=== PATIENT | male | born 1935 | race Hispanic/Latino ===

== ENCOUNTER 2020-10-13 12:00 | Emergency (ER) | payer MEDICARE ==
[2020-10-13 12:25] VITALS: BP 124/55
--- NOTE | 2020-10-13 13:06 | Emergency Department Report ---
ED General Adult HPI - General Chief complaint: Urogenital-Male Stated complaint: CATH BAG LEAKING Time Seen by Provider: 10/13/20 13:04 Source: patient Mode of arrival: Ambulatory Limitations: Physical Limitation - History of Present Illness Initial comments: Patient is an 85-year-old male with chronic indwelling Mac catheter presents for replacement Mac catheter bag after existing Mac catheter bag was damaged. Patient without medical complaint. - Related Data Allergies Allergy/AdvReac Type Severity Reaction Status Date / Time Penicillins AdvReac Unknown Unverified 05/11/16 10:20 ED Review of Systems ROS: Stated complaint: CATH BAG LEAKING Other details as noted in HPI Comment: All other systems reviewed and negative ED Past Medical Hx - Past Medical History Previous Medical History?: Yes Additional medical history: pt poor historian-unable to assess - Social History Smoking Status: Never Smoker ED Physical Exam - General Limitations: Physical Limitation General appearance: alert, in no apparent distress - Head Head exam: Present: atraumatic, normocephalic - Eye Eye exam: Present: normal appearance - ENT ENT exam: Present: mucous membranes moist - Neck Neck exam: Present: normal inspection - Respiratory Respiratory exam: Present: normal lung sounds bilaterally. Absent: respiratory distress - Cardiovascular Cardiovascular Exam: Present: regular rate, normal rhythm - GI/Abdominal GI/Abdominal exam: Present: soft, normal bowel sounds - Rectal Rectal exam: Present: deferred - Extremities Exam Extremities exam: Present: normal inspection - Back Exam Back exam: Present: normal inspection - Neurological Exam Neurological exam: Present: alert, oriented X3 - Psychiatric Psychiatric exam: Present: normal affect, normal mood - Skin Skin exam: Present: warm, dry, intact, normal color. Absent: rash ED Course Vital Signs 10/13/20 12:12 Temperature 97.8 F Pulse Rate 70 Respiratory 18 Rate Blood Pressure 124/55 O2 Sat by Pulse 98 Oximetry - Reevaluation(s) Reevaluation #1: 10/13/20 13:08 Mac catheter bag replaced by nurse. ED Medical Decision Making - Lab Data Vital Signs 10/13/20 12:12 Temperature 97.8 F Pulse Rate 70 Respiratory 18 Rate Blood Pressure 124/55 O2 Sat by Pulse 98 Oximetry Critical care attestation.: If time is entered above; I have spent that time in minutes in the direct care of this critically ill patient, excluding procedure time. ED Disposition Clinical Impression: Mac catheter problem Disposition: DC-01 TO HOME OR SELFCARE Is pt being admited?: No Condition: Stable Additional Instructions: Follow-up with primary care doctor in 1 to 2 days for reevaluation. Return to the emergency department for worsening symptoms.
== END 2020-10-13 13:59 | disposition home or self-care (01) ==
LOC: ED 12:00
DX: T83.098A Other mechanical complication of other urinary catheter, initial encounter (principal); Z88.0 Allergy status to penicillin; Y92.89 Other specified places as the place of occurrence of the external cause
CPT/HCPCS: 51702; 99281

== ENCOUNTER 2021-01-23 11:23 | Emergency (ER) | payer MEDICARE ==
[2021-01-23 11:34] VITALS: BP 146/68
--- NOTE | 2021-01-23 13:28 | Emergency Department Report ---
ED Male HPI - General Chief complaint: Medical Clearance Stated complaint: LEG BAG LEAKING Time Seen by Provider: 01/23/21 13:00 Source: patient, family Mode of arrival: Ambulatory Limitations: No Limitations - History of Present Illness Initial comments: This is a 85-year-old male in no physical or acute distress who presents to the ED complaining that his catheter bag is leaking and got damaged and would like a replacement. Patient has a history of catheter that was placed by his physician. Patient denies any testicular pain or pelvic pain. Patient denies any abdominal pain. - Related Data Allergies Allergy/AdvReac Type Severity Reaction Status Date / Time Penicillins AdvReac Unknown Unverified 05/11/16 10:20 ED Review of Systems ROS: Stated complaint: LEG BAG LEAKING Other details as noted in HPI Comment: All other systems reviewed and negative ED Past Medical Hx - Past Medical History Additional medical history: pt poor historian-unable to assess - Social History Smoking Status: Never Smoker ED Physical Exam - General Limitations: No Limitations General appearance: alert, in no apparent distress - Head Head exam: Present: atraumatic, normocephalic - Eye Eye exam: Present: normal appearance - ENT ENT exam: Present: mucous membranes moist - Neck Neck exam: Present: normal inspection - Respiratory Respiratory exam: Present: normal lung sounds bilaterally. Absent: respiratory distress - Cardiovascular Cardiovascular Exam: Present: regular rate, normal rhythm. Absent: systolic murmur, diastolic murmur, rubs, gallop - GI/Abdominal GI/Abdominal exam: Present: soft, normal bowel sounds - Rectal Rectal exam: Present: deferred - Extremities Exam Extremities exam: Present: normal inspection - Back Exam Back exam: Present: normal inspection - Neurological Exam Neurological exam: Present: alert, oriented X3 - Psychiatric Psychiatric exam: Present: normal affect, normal mood - Skin Skin exam: Present: warm, dry, intact, normal color. Absent: rash ED Course Vital Signs 01/23/21 11:31 Temperature 98.1 F Pulse Rate 63 Respiratory 18 Rate Blood Pressure 146/68 [Right] O2 Sat by Pulse 96 Oximetry ED Medical Decision Making - Medical Decision Making This 85-year-old male who presented with Mac catheter problem. Mac catheter with a bag was replaced by nurse. Mac catheter in place, working properly without any obstruction noted. Tried contacting family member via phone number in patient's profile. Phone number was called but had unknown member or affiliation person picked up the phone. Patient states he was brought here by someone that is in the same house symptoms but this person does not know anything about his medical conditions. Patient seems to be in no acute distress. Discussed follow-up with his primary care physician. Critical care attestation.: If time is entered above; I have spent that time in minutes in the direct care of this critically ill patient, excluding procedure time. ED Disposition Clinical Impression: Mac catheter problem, Mac catheter present Disposition: DC- TO HOME OR SELFCARE Condition: Stable Forms: Accompanied Note, Work/School Release Form(ED)
== END 2021-01-23 13:58 | disposition home or self-care (01) ==
LOC: ED 11:23
DX: T83.031A Leakage of indwelling urethral catheter, initial encounter (principal); Z88.0 Allergy status to penicillin; Y92.89 Other specified places as the place of occurrence of the external cause

== ENCOUNTER 2021-02-26 13:36 | Emergency (ER) | payer MEDICARE ==
--- NOTE | 2021-02-26 16:08 | Event Note ---
ED Screening Note ED Screening Note: Patient is an 85-year-old male presents emergency room with complaints of wanting his urinary catheter out He states he does not know who put it in or why it was placed The nurse spoke with the patient's son and apparently it was placed at [facility] 6 months ago but the son does not know why He has not had a change since then He is not currently seeing a urologist States it is still draining appropriately He has some abdominal discomfort This initial assessment/diagnostic orders/clinical plan/treatment(s) is/are subject to change based on patients health status, clinical progression and re- assessment by fellow clinical providers in the ED. Further treatment and workup at subsequent clinical providers discretion. Patient/guardian urged not to elope from the ED as their condition may be serious if not clinically assessed and managed. Initial orders include: labs, ua
[2021-02-26 16:52] LABS: Basophils % (Auto) 0.6 % (0.0-1.8); Eosinophils # (Auto) 0.2 K/mm3 (0.0-0.4); Eosinophils % (Auto) 3.1 % (0.0-4.3); Hematocrit 36.9 % (35.5-45.6); Mean Corpuscular HGB Conc 33 % (32-34); Mean Corpuscular Volume 89 fl (84-94); Monocytes # (Auto) 0.5 K/mm3 (0.0-0.8); Platelet Count 161 K/mm3 (140-440); Red Blood Count 4.14 M/mm3 (3.65-5.03)
[2021-02-26 17:11] LABS: Calcium 8.4 mg/dL (8.4-10.2)
--- NOTE | 2021-02-26 20:51 | Emergency Department Report ---
ED Male HPI - General Chief complaint: Abdominal Pain Stated complaint: GOMES BAG/ KNOTS IN STOMACH Time Seen by Provider: 02/26/21 16:06 Source: patient, family Mode of arrival: Ambulatory Limitations: Other - History of Present Illness Initial comments: Chief complaint "I want to know if you can take this out." HPI: This is an 85-year-old male with Gomes catheter in place. He wants to know if the Gomes catheter can be taken out or the leg bag replaced. He denies any discomfort at this time. He does not have a urologist. He does not know why the catheter is in place. He denies any other symptoms. Complaint: other (Gomes catheter in place for 6 months) Severity: mild Quality: other (Discomfort) Consistency: constant Improves with: none Worsens with: none indwelling catheter denies other symptoms - Related Data Allergies Allergy/AdvReac Type Severity Reaction Status Date / Time Penicillins AdvReac Unknown Unverified 05/11/16 10:20 ED Review of Systems ROS: Stated complaint: GOMES BAG/ KNOTS IN STOMACH Other details as noted in HPI Comment: All other systems reviewed and negative Constitutional: denies: fever, malaise Respiratory: denies: cough, shortness of breath Gastrointestinal: denies: abdominal pain, nausea, vomiting ED Past Medical Hx - Past Medical History Previous Medical History?: Yes Additional medical history: Urinary retention, patient gives limited history - Surgical History Additional Surgical History: Patient gives limited history - Social History Smoking Status: Never Smoker ED Physical Exam - General Limitations: Other General appearance: alert, in no apparent distress, other (Hard of hearing but able to communicate appears elderly frail but no acute distress) - Head Head exam: Present: atraumatic, normocephalic - Eye Eye exam: Present: normal appearance - ENT ENT exam: Present: mucous membranes moist - Neck Neck exam: Present: normal inspection, full ROM - Respiratory Respiratory exam: Present: normal lung sounds bilaterally. Absent: respiratory distress, wheezes, rales, rhonchi - Cardiovascular Cardiovascular Exam: Present: regular rate, normal rhythm, normal heart sounds. Absent: systolic murmur, diastolic murmur, rubs, gallop - GI/Abdominal GI/Abdominal exam: Present: soft, normal bowel sounds. Absent: distended, tenderness, guarding, rebound - Rectal Rectal exam: Present: deferred - Extremities Exam Extremities exam: Present: other (Leg bag in place filled with urine) - Back Exam Back exam: Present: normal inspection - Neurological Exam Neurological exam: Present: alert, oriented X3 - Psychiatric Psychiatric exam: Present: normal affect, normal mood - Skin Skin exam: Present: warm, dry, intact, other (Multiple sun spots, multiple papules on face and extremities) ED Medical Decision Making - Lab Data Result diagrams: 02/26/21 16:18 02/26/21 16:18 - Medical Decision Making Chronic indwelling Gomes catheter presumably due to BPH.: CBC chemistry within normal limits. Patient referred to urologist for further evaluation. Critical care attestation.: If time is entered above; I have spent that time in minutes in the direct care of this critically ill patient, excluding procedure time. ED Disposition Clinical Impression: Gomes catheter in place Disposition: DC-01 TO HOME OR SELFCARE Is pt being admited?: No Does the pt Need Aspirin: No Condition: Stable Instructions: Indwelling Urinary Catheter Insertion, Care After Additional Instructions: Please see urologist for further recommendations. Referrals: ZAIN COLLINS MD [Staff Physician] - 3-5 Days
[2021-02-26 23:51] VITALS: BP 187/79
== END 2021-02-26 21:50 | disposition home or self-care (01) ==
LOC: ED 13:36
DX: R10.9 Unspecified abdominal pain (principal); Z97.8 Presence of other specified devices; Z88.0 Allergy status to penicillin
CPT/HCPCS: 36415; 80053; 85025; 99283

== ENCOUNTER 2021-04-01 12:41 | Emergency (ER) | payer MEDICARE ==
[2021-04-01 13:08] VITALS: BP 117/61
== END 2021-04-01 18:16 | disposition home or self-care (01) ==
LOC: ED 12:41
DX: T83.038A Leakage of other urinary catheter, initial encounter (principal); Z88.0 Allergy status to penicillin; Z79.899 Other long term (current) drug therapy; Y84.6 Urinary catheterization as the cause of abnormal reaction of the patient, or of later complication, without mention of misadventure at the time of the procedure; Y92.89 Other specified places as the place of occurrence of the external cause
CPT/HCPCS: 99281

== ENCOUNTER 2021-04-28 19:04 | Inpatient (IN) | payer MEDICARE ==
--- NOTE | 2021-04-28 20:32 | Event Note ---
Date: 04/28/21 The patient was evaluated in the emergency department for symptoms described in the history of present illness. He/she was evaluated in the context of the global COVID-19 pandemic, which necessitated consideration that the patient might be at risk for infection with the virus that causes COVID-19. Institutional protocols and algorithms that pertain to the evaluation of patients at risk for COVID-19 are in a state of rapid change based on information released by regulatory bodies including the CDC and federal and state organizations. These policies and algorithms were followed during the patient's care in the emergency department. Please note that these policies, procedures and recommendations changed on a rapid basis. EMS documentation not available at time of chart dictation Medical screening examination: Verbal report received from emergency medical services. 86-year-old gentleman, brought to the hospital by EMS with a complaint from EMS of "he probably has sepsis." EMS states that they responded to a call with a complaint of weakness and altered mental status. Last known well time is "a few days ago", as per EMS. EMS reports to myself stable vital signs in the field. The patient is awake, moving 4 extremities spontaneously, and is confused. Altered mental status work-up ordered. EMS reports that this patient has "skin ulcers", so he will need a detailed head to toe skin exam, and likely admission for alteration in mental status/acute encephalopathy. Vital Signs 04/29/21 00:40 Temperature 98.2 F Pulse Rate 81 Respiratory 14 Rate Blood Pressure 169/93 [Left] O2 Sat by Pulse 96 Oximetry Lab Results 04/28/21 04/28/21 04/28/21 Range/Units 21:19 21:19 21:19 WBC 4.6 (4.5-11.0) K/mm3 RBC 5.00 (3.65-5.03) M/mm3 Hgb 14.1 (11.8-15.2) gm/dl Hct 42.2 (35.5-45.6) % MCV 84 (84-94) fl MCH 28 (28-32) pg MCHC 33 (32-34) % RDW 15.4 H (13.2-15.2) % Plt Count 126 L (140-440) K/mm3 Lymph % (Auto) 16.6 (13.4-35.0) % Johnston % (Auto) 5.2 (0.0-7.3) % Eos % (Auto) 0.1 (0.0-4.3) % Baso % (Auto) 0.3 (0.0-1.8) % Lymph # (Auto) 0.8 L (1.2-5.4) K/mm3 Johnston # (Auto) 0.2 (0.0-0.8) K/mm3 Eos # (Auto) 0.0 (0.0-0.4) K/mm3 Baso # (Auto) 0.0 (0.0-0.1) K/mm3 Seg Neutrophils % 77.8 H (40.0-70.0) % Seg Neutrophils # 3.6 (1.8-7.7) K/mm3 PT 13.1 (12.2-14.9) Sec. INR 0.93 (0.87-1.13) APTT 32.0 (24.2-36.6) Sec. Sodium 133 L (137-145) mmol/L Potassium 4.3 (3.6-5.0) mmol/L Chloride 97.3 L (98-107) mmol/L Carbon Dioxide 21 L (22-30) mmol/L Anion Gap 19 mmol/L BUN 34 H (9-20) mg/dL Creatinine 1.4 H (0.8-1.3) mg/dL Estimated GFR 48 ml/min BUN/Creatinine Ratio 24 % Glucose 108 H (75-100) mg/dL Lactic Acid (0.7-2.0) mmol/L Calcium 8.8 (8.4-10.2) mg/dL Total Bilirubin 0.40 (0.1-1.2) mg/dL AST 36 (5-40) units/L ALT 16 (7-56) units/L Alkaline Phosphatase 53 (35-129) units/L Ammonia (25-60) umol/L Total Creatine Kinase 215 H (55-170) units/L Troponin T 0.014 (0.00-0.029) ng/mL Total Protein 8.0 (6.3-8.2) g/dL Albumin 4.2 (3.9-5) g/dL Albumin/Globulin Ratio 1.1 % TSH (0.270-4.200) mlU/mL Salicylates (2.8-20.0) mg/dL Acetaminophen (10.0-30.0) ug/mL Plasma/Serum Alcohol (0-0.07) % Blood Type Antibody Screen 04/28/21 04/28/21 04/28/21 Range/Units 21:19 21:19 21:19 WBC (4.5-11.0) K/mm3 RBC (3.65-5.03) M/mm3 Hgb (11.8-15.2) gm/dl Hct (35.5-45.6) % MCV (84-94) fl MCH (28-32) pg MCHC (32-34) % RDW (13.2-15.2) % Plt Count (140-440) K/mm3 Lymph % (Auto) (13.4-35.0) % Johnston % (Auto) (0.0-7.3) % Eos % (Auto) (0.0-4.3) % Baso % (Auto) (0.0-1.8) % Lymph # (Auto) (1.2-5.4) K/mm3 Johnston # (Auto) (0.0-0.8) K/mm3 Eos # (Auto) (0.0-0.4) K/mm3 Baso # (Auto) (0.0-0.1) K/mm3 Seg Neutrophils % (40.0-70.0) % Seg Neutrophils # (1.8-7.7) K/mm3 PT (12.2-14.9) Sec. INR (0.87-1.13) APTT (24.2-36.6) Sec. Sodium (137-145) mmol/L Potassium (3.6-5.0) mmol/L Chloride (98-107) mmol/L Carbon Dioxide (22-30) mmol/L Anion Gap mmol/L BUN (9-20) mg/dL Creatinine (0.8-1.3) mg/dL Estimated GFR ml/min BUN/Creatinine Ratio % Glucose (75-100) mg/dL Lactic Acid 1.40 (0.7-2.0) mmol/L Calcium (8.4-10.2) mg/dL Total Bilirubin (0.1-1.2) mg/dL AST (5-40) units/L ALT (7-56) units/L Alkaline Phosphatase (35-129) units/L Ammonia 21.0 L (25-60) umol/L Total Creatine Kinase (55-170) units/L Troponin T (0.00-0.029) ng/mL Total Protein (6.3-8.2) g/dL Albumin (3.9-5) g/dL Albumin/Globulin Ratio % TSH 12.780 H (0.270-4.200) mlU/mL Salicylates (2.8-20.0) mg/dL Acetaminophen (10.0-30.0) ug/mL Plasma/Serum Alcohol (0-0.07) % Blood Type Antibody Screen 04/28/21 04/28/21 04/28/21 Range/Units 21:19 21:19 21:19 WBC (4.5-11.0) K/mm3 RBC (3.65-5.03) M/mm3 Hgb (11.8-15.2) gm/dl Hct (35.5-45.6) % MCV (84-94) fl MCH (28-32) pg MCHC (32-34) % RDW (13.2-15.2) % Plt Count (140-440) K/mm3 Lymph % (Auto) (13.4-35.0) % Johnston % (Auto) (0.0-7.3) % Eos % (Auto) (0.0-4.3) % Baso % (Auto) (0.0-1.8) % Lymph # (Auto) (1.2-5.4) K/mm3 Johnston # (Auto) (0.0-0.8) K/mm3 Eos # (Auto) (0.0-0.4) K/mm3 Baso # (Auto) (0.0-0.1) K/mm3 Seg Neutrophils % (40.0-70.0) % Seg Neutrophils # (1.8-7.7) K/mm3 PT (12.2-14.9) Sec. INR (0.87-1.13) APTT (24.2-36.6) Sec. Sodium (137-145) mmol/L Potassium (3.6-5.0) mmol/L Chloride (98-107) mmol/L Carbon Dioxide (22-30) mmol/L Anion Gap mmol/L BUN (9-20) mg/dL Creatinine (0.8-1.3) mg/dL Estimated GFR ml/min BUN/Creatinine Ratio % Glucose (75-100) mg/dL Lactic Acid (0.7-2.0) mmol/L Calcium (8.4-10.2) mg/dL Total Bilirubin (0.1-1.2) mg/dL AST (5-40) units/L ALT (7-56) units/L Alkaline Phosphatase (35-129) units/L Ammonia (25-60) umol/L Total Creatine Kinase (55-170) units/L Troponin T (0.00-0.029) ng/mL Total Protein (6.3-8.2) g/dL Albumin (3.9-5) g/dL Albumin/Globulin Ratio % TSH (0.270-4.200) mlU/mL Salicylates < 0.3 L (2.8-20.0) mg/dL Acetaminophen 5.0 L (10.0-30.0) ug/mL Plasma/Serum Alcohol < 0.01 (0-0.07) % Blood Type Antibody Screen 04/28/21 Range/Units 21:19 WBC (4.5-11.0) K/mm3 RBC (3.65-5.03) M/mm3 Hgb (11.8-15.2) gm/dl Hct (35.5-45.6) % MCV (84-94) fl MCH (28-32) pg MCHC (32-34) % RDW (13.2-15.2) % Plt Count (140-440) K/mm3 Lymph % (Auto) (13.4-35.0) % Johnston % (Auto) (0.0-7.3) % Eos % (Auto) (0.0-4.3) % Baso % (Auto) (0.0-1.8) % Lymph # (Auto) (1.2-5.4) K/mm3 Johnston # (Auto) (0.0-0.8) K/mm3 Eos # (Auto) (0.0-0.4) K/mm3 Baso # (Auto) (0.0-0.1) K/mm3 Seg Neutrophils % (40.0-70.0) % Seg Neutrophils # (1.8-7.7) K/mm3 PT (12.2-14.9) Sec. INR (0.87-1.13) APTT (24.2-36.6) Sec. Sodium (137-145) mmol/L Potassium (3.6-5.0) mmol/L Chloride (98-107) mmol/L Carbon Dioxide (22-30) mmol/L Anion Gap mmol/L BUN (9-20) mg/dL Creatinine (0.8-1.3) mg/dL Estimated GFR ml/min BUN/Creatinine Ratio % Glucose (75-100) mg/dL Lactic Acid (0.7-2.0) mmol/L Calcium (8.4-10.2) mg/dL Total Bilirubin (0.1-1.2) mg/dL AST (5-40) units/L ALT (7-56) units/L Alkaline Phosphatase (35-129) units/L Ammonia (25-60) umol/L Total Creatine Kinase (55-170) units/L Troponin T (0.00-0.029) ng/mL Total Protein (6.3-8.2) g/dL Albumin (3.9-5) g/dL Albumin/Globulin Ratio % TSH (0.270-4.200) mlU/mL Salicylates (2.8-20.0) mg/dL Acetaminophen (10.0-30.0) ug/mL Plasma/Serum Alcohol (0-0.07) % Blood Type A POSITIVE Antibody Screen Negative CT head/brain wo con INDICATION / CLINICAL INFORMATION: 86 years Male; Altered Mental Status. TECHNIQUE: Routine CT head without contrast. All CT scans at this location are performed using CT dose reduction for ALARA by means of automated exposure control. COMPARISON: None. FINDINGS: BRAIN / INTRACRANIAL CONTENTS: The motion degrades the image quality. 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 There is mild cerebral atrophy with associated prominence of the ventricular system. There appears be some thickening of the left frontal and right superficial temporal soft tissues. There is no reported history of trauma. There is no clear CT evidence of acute intracranial hemorrhage or significant mass effect. ORBITS: No significant abnormality of visualized orbits. SINUSES / MASTOIDS: No signif icant abnormality in the visualized paranasal sinuses or mastoid air cells. CRANIOCERVICAL JUNCTION: No significant abnormality. ADDITIONAL FINDINGS: None. IMPRESSION: 1. The motion degrades image quality. 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 Signer Name: Willie Lazar MD Signed: 04/28/2021 8:45 PM Workstation Name: [id number] CHEST 1 VIEW INDICATION / CLINICAL INFORMATION: Altered Mental Status. COMPARISON: None available. FINDINGS: SUPPORT DEVICES: None. HEART / MEDIASTINUM: No significant abnormality. LUNGS / PLEURA: No significant pulmonary or pleural abnormality. No pneumothorax. ADDITIONAL FINDINGS: No significant additional findings. IMPRESSION: 1. No acute findings. Signer Name: Alma Cowan MD Signed: 04/28/2021 8:29 PM Workstation Name: [id number]
--- NOTE | 2021-04-28 21:33 | XRay Report ---
CHEST 1 VIEW INDICATION / CLINICAL INFORMATION: Altered Mental Status. COMPARISON: None available. FINDINGS: SUPPORT DEVICES: None. HEART / MEDIASTINUM: No significant abnormality. LUNGS / PLEURA: No significant pulmonary or pleural abnormality. No pneumothorax. ADDITIONAL FINDINGS: No significant additional findings. IMPRESSION: 1. No acute findings. Signer Name: Alma Cowan MD Signed: 04/28/2021 9:29 PM Workstation Name: [id number]
[2021-04-28 21:49] LABS: Basophils % (Auto) 0.3 % (0.0-1.8); Eosinophils % (Auto) 0.1 % (0.0-4.3); Hematocrit 42.2 % (35.5-45.6); Hemoglobin 14.1 gm/dl (11.8-15.2); Lymphocytes # (Auto) 0.8 K/mm3 (1.2-5.4); Lymphocytes % (Auto) 16.6 % (13.4-35.0); Mean Corpuscular HGB Conc 33 % (32-34); Mean Corpuscular Volume 84 fl (84-94); Monocytes # (Auto) 0.2 K/mm3 (0.0-0.8); Monocytes % (Auto) 5.2 % (0.0-7.3); Platelet Count 126 K/mm3 (140-440); Red Cell Distribution Width 15.4 % (13.2-15.2)
--- NOTE | 2021-04-28 21:49 | Cat Scan Report ---
CT head/brain wo con INDICATION / CLINICAL INFORMATION: 86 years Male; Altered Mental Status. TECHNIQUE: Routine CT head without contrast. All CT scans at this location are performed using CT dos e reduction for ALARA by means of automated exposure control. COMPARISON: None. FINDINGS: BRAIN / INTRACRANIAL CONTENTS: The motion degrades the image quality. However, there appears be moder ate cerebral white matter disease most consistent with microvascular angiopathy which appears of prog ressed from the previous exam. There is mild cerebral atrophy with associated prominence of the ventr icular system. There appears be some thickening of the left frontal and right superficial temporal soft tissues. The re is no reported history of trauma. There is no clear CT evidence of acute intracranial hemorrhage o r significant mass effect. ORBITS: No significant abnormality of visualized orbits. SINUSES / MASTOIDS: No significant abnormality in the visualized paranasal sinuses or mastoid air barry ls. CRANIOCERVICAL JUNCTION: No significant abnormality. ADDITIONAL FINDINGS: None. IMPRESSION: 1. The motion degrades image quality. 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 Signer Name: Willie Lazar MD Signed: 04/28/2021 9:45 PM Workstation Name: [id number]
[2021-04-28 22:03] LABS: INR 0.93 (0.87-1.13)
[2021-04-28 22:08] LABS: Albumin 4.2 g/dL (3.9-5); Calcium 8.8 mg/dL (8.4-10.2)
[2021-04-29] MEDS ORDERED: SODIUM CHLORIDE 0.9% 1000 ML 1,000 ML IV ONE (02:51)
[2021-04-29 04:24] LABS: Bacteria,Urine 2+ /HPF (Negative); Bilirubin,Urine NEG (Negative); Blood,Urine LG (Negative); Color,Urine Amber (Yellow); Mucus,Urine FEW /HPF; Urobilinogen,Urine < 2.0 mg/dL (<2.0)
[2021-04-29 04:26] LABS: Protein,Urine >500 mg/dL (Negative); RBC,Urine > 182.0 /HPF (0.0-6.0)
--- NOTE | 2021-04-29 05:22 | Emergency Department Report ---
ED General Adult HPI - General Chief complaint: Neuro Symptoms/Deficit Stated complaint: AMS Time Seen by Provider: 04/29/21 01:04 Source: EMS Mode of arrival: Stretcher Limitations: Altered Mental Status - History of Present Illness Initial comments: Patient is a 86-year-old male who is presenting with some altered mental status. Patient has a neighbor who checks him from time to time. Patient had been seen in a day or 2. Found mumbling and not as coherent as he normally is. Patient has indwelling Mac catheter which appears to have been in for quite some time. Patient is denying any pain fevers chills cough cold congestion however the patient is a poor historian is unable to give any additional history - Related Data Allergies Allergy/AdvReac Type Severity Reaction Status Date / Time Penicillins AdvReac Unknown Unverified 05/11/16 10:20 ED Review of Systems ROS: Stated complaint: AMS Other details as noted in HPI Comment: All other systems reviewed and negative ED Past Medical Hx - Past Medical History Previous Medical History?: Yes Additional medical history: Urinary retention, skin cancer, patient gives limited history - Surgical History Past Surgical History?: No Additional Surgical History: Patient gives limited history - Social History Smoking Status: Never Smoker ED Physical Exam - General Limitations: Altered Mental Status General appearance: alert, in no apparent distress - Head Head exam: Present: atraumatic, normocephalic - Eye Eye exam: Present: normal appearance, PERRL, EOMI - ENT ENT exam: Present: mucous membranes moist - Neck Neck exam: Present: normal inspection - Respiratory Respiratory exam: Present: normal lung sounds bilaterally. Absent: respiratory distress, wheezes, rales, rhonchi - Cardiovascular Cardiovascular Exam: Present: regular rate, normal rhythm, normal heart sounds. Absent: systolic murmur, diastolic murmur, rubs, gallop - GI/Abdominal GI/Abdominal exam: Present: soft, normal bowel sounds. Absent: distended, tenderness, guarding, rebound - Rectal Rectal exam: Present: deferred - Extremities Exam Extremities exam: Present: normal inspection - Back Exam Back exam: Present: normal inspection - Neurological Exam Neurological exam: Present: alert, altered - Psychiatric Psychiatric exam: Present: normal affect, normal mood - Skin Skin exam: Present: warm, dry, intact, normal color. Absent: rash ED Course Vital Signs 04/29/21 00:40 Temperature 98.2 F Pulse Rate 81 Respiratory 14 Rate Blood Pressure 169/93 [Left] O2 Sat by Pulse 96 Oximetry ED Medical Decision Making - Lab Data Result diagrams: 04/28/21 21:19 04/28/21 21:19 Lab Results 04/28/21 04/28/21 04/28/21 Range/Units 21:19 21:19 21:19 WBC 4.6 (4.5-11.0) K/mm3 RBC 5.00 (3.65-5.03) M/mm3 Hgb 14.1 (11.8-15.2) gm/dl Hct 42.2 (35.5-45.6) % MCV 84 (84-94) fl MCH 28 (28-32) pg MCHC 33 (32-34) % RDW 15.4 H (13.2-15.2) % Plt Count 126 L (140-440) K/mm3 Lymph % (Auto) 16.6 (13.4-35.0) % [place] % (Auto) 5.2 (0.0-7.3) % Eos % (Auto) 0.1 (0.0-4.3) % Baso % (Auto) 0.3 (0.0-1.8) % Lymph # (Auto) 0.8 L (1.2-5.4) K/mm3 [place] # (Auto) 0.2 (0.0-0.8) K/mm3 Eos # (Auto) 0.0 (0.0-0.4) K/mm3 Baso # (Auto) 0.0 (0.0-0.1) K/mm3 Seg Neutrophils % 77.8 H (40.0-70.0) % Seg Neutrophils # 3.6 (1.8-7.7) K/mm3 PT 13.1 (12.2-14.9) Sec. INR 0.93 (0.87-1.13) APTT 32.0 (24.2-36.6) Sec. Sodium 133 L (137-145) mmol/L Potassium 4.3 (3.6-5.0) mmol/L Chloride 97.3 L (98-107) mmol/L Carbon Dioxide 21 L (22-30) mmol/L Anion Gap 19 mmol/L BUN 34 H (9-20) mg/dL Creatinine 1.4 H (0.8-1.3) mg/dL Estimated GFR 48 ml/min BUN/Creatinine Ratio 24 % Glucose 108 H (75-100) mg/dL Lactic Acid (0.7-2.0) mmol/L Calcium 8.8 (8.4-10.2) mg/dL Total Bilirubin 0.40 (0.1-1.2) mg/dL AST 36 (5-40) units/L ALT 16 (7-56) units/L Alkaline Phosphatase 53 (35-129) units/L Ammonia (25-60) umol/L Total Creatine Kinase 215 H (55-170) units/L Troponin T 0.014 (0.00-0.029) ng/mL Total Protein 8.0 (6.3-8.2) g/dL Albumin 4.2 (3.9-5) g/dL Albumin/Globulin Ratio 1.1 % TSH (0.270-4.200) mlU/mL Urine Color (Yellow) Urine Turbidity (Clear) Urine pH (5.0-7.0) Ur Specific [place] (1.003-1.030) Urine Protein (Negative) mg/dL Urine Glucose (UA) (Negative) mg/dL Urine Ketones (Negative) mg/dL Urine Blood (Negative) Urine Nitrite (Negative) Urine Bilirubin (Negative) Urine Urobilinogen (<2.0) mg/dL Ur Leukocyte Esterase (Negative) Urine WBC (Auto) (0.0-6.0) /HPF Urine RBC (Auto) (0.0-6.0) /HPF U Epithel Cells (Auto) (0-13.0) /HPF Urine Bacteria (Auto) (Negative) /HPF Urine WBC Clumps /HPF Urine Mucus /HPF Salicylates (2.8-20.0) mg/dL Acetaminophen (10.0-30.0) ug/mL Plasma/Serum Alcohol (0-0.07) % Blood Type Antibody Screen 04/28/21 04/28/21 04/28/21 Range/Units 21:19 21:19 21:19 WBC (4.5-11.0) K/mm3 RBC (3.65-5.03) M/mm3 Hgb (11.8-15.2) gm/dl Hct (35.5-45.6) % MCV (84-94) fl MCH (28-32) pg MCHC (32-34) % RDW (13.2-15.2) % Plt Count (140-440) K/mm3 Lymph % (Auto) (13.4-35.0) % [place] % (Auto) (0.0-7.3) % Eos % (Auto) (0.0-4.3) % Baso % (Auto) (0.0-1.8) % Lymph # (Auto) (1.2-5.4) K/mm3 [place] # (Auto) (0.0-0.8) K/mm3 Eos # (Auto) (0.0-0.4) K/mm3 Baso # (Auto) (0.0-0.1) K/mm3 Seg Neutrophils % (40.0-70.0) % Seg Neutrophils # (1.8-7.7) K/mm3 PT (12.2-14.9) Sec. INR (0.87-1.13) APTT (24.2-36.6) Sec. Sodium (137-145) mmol/L Potassium (3.6-5.0) mmol/L Chloride (98-107) mmol/L Carbon Dioxide (22-30) mmol/L Anion Gap mmol/L BUN (9-20) mg/dL Creatinine (0.8-1.3) mg/dL Estimated GFR ml/min BUN/Creatinine Ratio % Glucose (75-100) mg/dL Lactic Acid 1.40 (0.7-2.0) mmol/L Calcium (8.4-10.2) mg/dL Total Bilirubin (0.1-1.2) mg/dL AST (5-40) units/L ALT (7-56) units/L Alkaline Phosphatase (35-129) units/L Ammonia 21.0 L (25-60) umol/L Total Creatine Kinase (55-170) units/L Troponin T (0.00-0.029) ng/mL Total Protein (6.3-8.2) g/dL Albumin (3.9-5) g/dL Albumin/Globulin Ratio % TSH 12.780 H (0.270-4.200) mlU/mL Urine Color (Yellow) Urine Turbidity (Clear) Urine pH (5.0-7.0) Ur Specific [place] (1.003-1.030) Urine Protein (Negative) mg/dL Urine Glucose (UA) (Negative) mg/dL Urine Ketones (Negative) mg/dL Urine Blood (Negative) Urine Nitrite (Negative) Urine Bilirubin (Negative) Urine Urobilinogen (<2.0) mg/dL Ur Leukocyte Esterase (Negative) Urine WBC (Auto) (0.0-6.0) /HPF Urine RBC (Auto) (0.0-6.0) /HPF U Epithel Cells (Auto) (0-13.0) /HPF Urine Bacteria (Auto) (Negative) /HPF Urine WBC Clumps /HPF Urine Mucus /HPF Salicylates (2.8-20.0) mg/dL Acetaminophen (10.0-30.0) ug/mL Plasma/Serum Alcohol (0-0.07) % Blood Type Antibody Screen 04/28/21 04/28/21 04/28/21 Range/Units 21:19 21:19 21:19 WBC (4.5-11.0) K/mm3 RBC (3.65-5.03) M/mm3 Hgb (11.8-15.2) gm/dl Hct (35.5-45.6) % MCV (84-94) fl MCH (28-32) pg MCHC (32-34) % RDW (13.2-15.2) % Plt Count (140-440) K/mm3 Lymph % (Auto) (13.4-35.0) % [place] % (Auto) (0.0-7.3) % Eos % (Auto) (0.0-4.3) % Baso % (Auto) (0.0-1.8) % Lymph # (Auto) (1.2-5.4) K/mm3 [place] # (Auto) (0.0-0.8) K/mm3 Eos # (Auto) (0.0-0.4) K/mm3 Baso # (Auto) (0.0-0.1) K/mm3 Seg Neutrophils % (40.0-70.0) % Seg Neutrophils # (1.8-7.7) K/mm3 PT (12.2-14.9) Sec. INR (0.87-1.13) APTT (24.2-36.6) Sec. Sodium (137-145) mmol/L Potassium (3.6-5.0) mmol/L Chloride (98-107) mmol/L Carbon Dioxide (22-30) mmol/L Anion Gap mmol/L BUN (9-20) mg/dL Creatinine (0.8-1.3) mg/dL Estimated GFR ml/min BUN/Creatinine Ratio % Glucose (75-100) mg/dL Lactic Acid (0.7-2.0) mmol/L Calcium (8.4-10.2) mg/dL Total Bilirubin (0.1-1.2) mg/dL AST (5-40) units/L ALT (7-56) units/L Alkaline Phosphatase (35-129) units/L Ammonia (25-60) umol/L Total Creatine Kinase (55-170) units/L Troponin T (0.00-0.029) ng/mL Total Protein (6.3-8.2) g/dL Albumin (3.9-5) g/dL Albumin/Globulin Ratio % TSH (0.270-4.200) mlU/mL Urine Color (Yellow) Urine Turbidity (Clear) Urine pH (5.0-7.0) Ur Specific [place] (1.003-1.030) Urine Protein (Negative) mg/dL Urine Glucose (UA) (Negative) mg/dL Urine Ketones (Negative) mg/dL Urine Blood (Negative) Urine Nitrite (Negative) Urine Bilirubin (Negative) Urine Urobilinogen (<2.0) mg/dL Ur Leukocyte Esterase (Negative) Urine WBC (Auto) (0.0-6.0) /HPF Urine RBC (Auto) (0.0-6.0) /HPF U Epithel Cells (Auto) (0-13.0) /HPF Urine Bacteria (Auto) (Negative) /HPF Urine WBC Clumps /HPF Urine Mucus /HPF Salicylates < 0.3 L (2.8-20.0) mg/dL Acetaminophen 5.0 L (10.0-30.0) ug/mL Plasma/Serum Alcohol < 0.01 (0-0.07) % Blood Type Antibody Screen 04/28/21 04/29/21 Range/Units 21:19 03:47 WBC (4.5-11.0) K/mm3 RBC (3.65-5.03) M/mm3 Hgb (11.8-15.2) gm/dl Hct (35.5-45.6) % MCV (84-94) fl MCH (28-32) pg MCHC (32-34) % RDW (13.2-15.2) % Plt Count (140-440) K/mm3 Lymph % (Auto) (13.4-35.0) % [place] % (Auto) (0.0-7.3) % Eos % (Auto) (0.0-4.3) % Baso % (Auto) (0.0-1.8) % Lymph # (Auto) (1.2-5.4) K/mm3 [place] # (Auto) (0.0-0.8) K/mm3 Eos # (Auto) (0.0-0.4) K/mm3 Baso # (Auto) (0.0-0.1) K/mm3 Seg Neutrophils % (40.0-70.0) % Seg Neutrophils # (1.8-7.7) K/mm3 PT (12.2-14.9) Sec. INR (0.87-1.13) APTT (24.2-36.6) Sec. Sodium (137-145) mmol/L Potassium (3.6-5.0) mmol/L Chloride (98-107) mmol/L Carbon Dioxide (22-30) mmol/L Anion Gap mmol/L BUN (9-20) mg/dL Creatinine (0.8-1.3) mg/dL Estimated GFR ml/min BUN/Creatinine Ratio % Glucose (75-100) mg/dL Lactic Acid (0.7-2.0) mmol/L Calcium (8.4-10.2) mg/dL Total Bilirubin (0.1-1.2) mg/dL AST (5-40) units/L ALT (7-56) units/L Alkaline Phosphatase (35-129) units/L Ammonia (25-60) umol/L Total Creatine Kinase (55-170) units/L Troponin T (0.00-0.029) ng/mL Total Protein (6.3-8.2) g/dL Albumin (3.9-5) g/dL Albumin/Globulin Ratio % TSH (0.270-4.200) mlU/mL Urine Color [place] (Yellow) Urine Turbidity Cloudy (Clear) Urine pH 6.0 (5.0-7.0) Ur Specific [place] 1.015 (1.003-1.030) Urine Protein >500 (Negative) mg/dL Urine Glucose (UA) Neg (Negative) mg/dL Urine Ketones Neg (Negative) mg/dL Urine Blood Lg (Negative) Urine Nitrite Neg (Negative) Urine Bilirubin Neg (Negative) Urine Urobilinogen < 2.0 (<2.0) mg/dL Ur Leukocyte Esterase Lg (Negative) Urine WBC (Auto) 176.0 H (0.0-6.0) /HPF Urine RBC (Auto) > 182.0 (0.0-6.0) /HPF U Epithel Cells (Auto) < 1.0 (0-13.0) /HPF Urine Bacteria (Auto) 2+ (Negative) /HPF Urine WBC Clumps 2+ /HPF Urine Mucus Few /HPF Salicylates (2.8-20.0) mg/dL Acetaminophen (10.0-30.0) ug/mL Plasma/Serum Alcohol (0-0.07) % Blood Type A POSITIVE Antibody Screen Negative - Radiology Data CT head/brain wo con INDICATION / CLINICAL INFORMATION: 86 years Male; Altered Mental Status. TECHNIQUE: Routine CT head without contrast. All CT scans at this location are performed using CT dose reduction for ALARA by means of automated exposure control. COMPARISON: None. FINDINGS: BRAIN / INTRACRANIAL CONTENTS: The motion degrades the image quality. 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 There is mild cerebral atrophy with associated prominence of the ventricular system. There appears be some thickening of the left frontal and right superficial temporal soft tissues. There is no reported history of trauma. There is no clear CT evidence of acute intracranial hemorrhage or significant mass effect. ORBITS: No significant abnormality of visualized orbits. SINUSES / MASTOIDS: No significant abnormality in the visualized paranasal sinuses or mastoid air cells. CRANIOCERVICAL JUNCTION: No significant abnormality. ADDITIONAL FINDINGS: None. IMPRESSION: 1. The motion degrades image quality. 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 Signer Name: Willie Lazar MD Signed: 04/28/2021 9:45 PM Workstation Name: [id number] CHEST 1 VIEW INDICATION / CLINICAL INFORMATION: Altered Mental Status. COMPARISON: None available. FINDINGS: SUPPORT DEVICES: None. HEART / MEDIASTINUM: No significant abnormality. LUNGS / PLEURA: No significant pulmonary or pleural abnormality. No pneumothorax. ADDITIONAL FINDINGS: No significant additional findings. IMPRESSION: 1. No acute findings. Signer Name: Alma Cowan MD Signed: 04/28/2021 9:29 PM Workstation Name: [id number] Transcribed By: Dictated By: Alma Cowan MD Electronically Authenticated By: Alma Cowan MD Signed Date/Time: 04/28/212128 DD/ 28 - Medical Decision Making Patient is a poor historian and apparently is altered from his baseline. This information comes from report from the paramedics of the procedure report from neighbor who stated that his behavior was abnormal which prompted him to call paramedics. Patient does have a significant UTI. Patient also show some evidence of some dehydration as well. Patient to be admitted to the hospitalist service for observation. Started on Levaquin. Also started on some IV fluids as well. Critical care attestation.: If time is entered above; I have spent that time in minutes in the direct care of this critically ill patient, excluding procedure time. ED Disposition Clinical Impression: UTI (urinary tract infection), Altered mental status, Dehydration, Acute kidney injury Disposition: ADMITTED INPATIENT Is pt being admited?: Yes Does the pt Need Aspirin: No Condition: Stable Time of Disposition: 05:23
[2021-04-29] MEDS ORDERED: ONDANSETRON 4 MG/2 ML INJ IV PRN (05:28)
[2021-04-29] MEDS ORDERED: ACETAMINOPHEN 325 MG TAB PO PRN (05:28)
[2021-04-29] MEDS ORDERED: ALBUTEROL 2.5 MG/3 ML NEBU IH PRN (05:28)
[2021-04-29] MEDS ORDERED: oxyCODONE /ACETAMINOPHEN 5-325MG TAB PO PRN (05:28)
--- NOTE | 2021-04-29 05:36 | History and Physical Report ---
History of Present Illness Date of examination: 04/29/21 Date of admission: 04/29/21 Chief complaint: Altered mental status History of present illness: 86-year-old male with history of urinary retention, skin cancer was brought to the emergency room because altered mental status. Patient has a neighbor who checks him from time to time. Patient had been seen in a day or 2. Found mumbling and not as coherent as he normally is. Patient has indwelling Mac catheter which appears to have been in for quite some time. Patient is denying any pain fevers chills cough cold congestion however the patient is a poor historian is unable to give any additional history In the emergency room initial CT scan of the head shows no acute intracranial abnormality. But patient is found to have a UTI. Patient BUN is 34 creatinine 1.4 Med rec need to be done Past History Past Medical History: other (Urinary retention, skin cancer) Medications and Allergies Allergies Allergy/AdvReac Type Severity Reaction Status Date / Time Penicillins AdvReac Unknown Unverified 05/11/16 10:20 Active Meds: Active Medications Acetaminophen (Acetaminophen 325 Mg Tab) 650 mg PO Q4H PRN PRN Reason: Pain MILD(1-3)/Fever >100.5/COLLIER Albuterol (Albuterol 2.5 Mg/3 Ml Nebu) 2.5 mg IH Q4HRT PRN PRN Reason: Shortness Of Breath Famotidine (Famotidine 20 Mg/2 Ml Inj) 20 mg IV BID PURNIMA Heparin Sodium (Porcine) (Heparin 5,000 Unit/1 Ml Vial) 5,000 unit SUB-Q Q8HR PURNIMA Hydromorphone HCl (Hydromorphone 1 Mg/1 Ml Inj) 0.5 mg IV Q3H PRN PRN Reason: Pain , Severe (7-10) Sodium Chloride (Nacl 0.45% 1000 Ml) 1,000 mls @ 100 mls/hr IV DIRECT PURNIMA Ceftriaxone Sodium (Rocephin/Ns 2 Gm/100 Ml) 2 gm in 100 mls @ 200 mls/hr IV Q24H PURNIMA; Protocol Ondansetron HCl (Ondansetron 4 Mg/2 Ml Inj) 4 mg IV Q8H PRN PRN Reason: Nausea And Vomiting Oxycodone/Acetaminophen (Oxycodone /Acetaminophen 5-325mg Tab) 1 tab PO Q6H PRN PRN Reason: Pain, Moderate (4-6) Sodium Chloride (Sodium Chloride 0.9% 10 Ml Flush Syringe) 10 ml IV BID PURNIMA Sodium Chloride (Sodium Chloride 0.9% 10 Ml Flush Syringe) 10 ml IV PRN PRN PRN Reason: LINE FLUSH Review of Systems All systems: negative Neurological: change in mentation, confusion Exam - Constitutional Vitals: Temp Pulse Resp BP Pulse Ox 98.2 F 81 14 169/93 96 04/29/21 00:40 04/29/21 00:40 04/29/21 00:40 04/29/21 00:40 04/29/21 00:40 General appearance: Present: no acute distress, well-nourished - EENT Eyes: Present: PERRL ENT: hearing intact, clear oral mucosa - Neck Neck: Present: supple, normal ROM - Respiratory Respiratory effort: normal Respiratory: bilateral: CTA - Cardiovascular Heart Sounds: Present: S1 & S2. Absent: rub, click - Extremities Extremities: pulses symmetrical, No edema Peripheral Pulses: within normal limits - Abdominal General gastrointestinal: Present: soft, non-tender, non-distended, normal bowel sounds Male genitourinary: Present: normal - Integumentary Integumentary: Present: clear, warm, dry - Musculoskeletal Musculoskeletal: gait normal, strength equal bilaterally - Psychiatric Psychiatric: other (Altered mental status, confusion) - Neurologic Neurologic: CNII-XII intact, moves all extremities, other (patient is alert but not oriented) HEART Score - HEART Score Troponin: Troponin T 0.014 ng/mL (0.00-0.029) 04/28/21 21:19 Results - Labs CBC & Chem 7: 04/28/21 21:19 04/28/21 21:19 Labs: Laboratory Last Values WBC 4.6 K/mm3 (4.5-11.0) 04/28/21 21:19 RBC 5.00 M/mm3 (3.65-5.03) 04/28/21 21:19 Hgb 14.1 gm/dl (11.8-15.2) 04/28/21 21:19 Hct 42.2 % (35.5-45.6) 04/28/21 21:19 MCV 84 fl (84-94) 04/28/21 21:19 MCH 28 pg (28-32) 04/28/21 21:19 MCHC 33 % (32-34) 04/28/21 21:19 RDW 15.4 % (13.2-15.2) H 04/28/21 21:19 Plt Count 126 K/mm3 (140-440) L 04/28/21 21:19 Lymph % (Auto) 16.6 % (13.4-35.0) 04/28/21 21:19 [place] % (Auto) 5.2 % (0.0-7.3) 04/28/21 21:19 Eos % (Auto) 0.1 % (0.0-4.3) 04/28/21 21:19 Baso % (Auto) 0.3 % (0.0-1.8) 04/28/21 21:19 Lymph # (Auto) 0.8 K/mm3 (1.2-5.4) L 04/28/21 21:19 [place] # (Auto) 0.2 K/mm3 (0.0-0.8) 04/28/21 21:19 Eos # (Auto) 0.0 K/mm3 (0.0-0.4) 04/28/21 21:19 Baso # (Auto) 0.0 K/mm3 (0.0-0.1) 04/28/21 21:19 Seg Neutrophils % 77.8 % (40.0-70.0) H 04/28/21 21:19 Seg Neutrophils # 3.6 K/mm3 (1.8-7.7) 04/28/21 21:19 PT 13.1 Sec. (12.2-14.9) 04/28/21 21:19 INR 0.93 (0.87-1.13) 04/28/21 21:19 APTT 32.0 Sec. (24.2-36.6) 04/28/21 21:19 Sodium 133 mmol/L (137-145) L 04/28/21 21:19 Potassium 4.3 mmol/L (3.6-5.0) 04/28/21 21:19 Chloride 97.3 mmol/L (98-107) L 04/28/21 21:19 Carbon Dioxide 21 mmol/L (22-30) L 04/28/21 21:19 Anion Gap 19 mmol/L 04/28/21 21:19 BUN 34 mg/dL (9-20) H 04/28/21 21:19 Creatinine 1.4 mg/dL (0.8-1.3) H 04/28/21 21:19 Estimated GFR 48 ml/min 04/28/21 21:19 BUN/Creatinine Ratio 24 % 04/28/21 21:19 Glucose 108 mg/dL (75-100) H 04/28/21 21:19 Lactic Acid 1.40 mmol/L (0.7-2.0) 04/28/21 21:19 Calcium 8.8 mg/dL (8.4-10.2) 04/28/21 21:19 Total Bilirubin 0.40 mg/dL (0.1-1.2) 04/28/21 21:19 AST 36 units/L (5-40) 04/28/21 21:19 ALT 16 units/L (7-56) 04/28/21 21:19 Alkaline Phosphatase 53 units/L (35-129) 04/28/21 21:19 Ammonia 21.0 umol/L (25-60) L 04/28/21 21:19 Total Creatine Kinase 215 units/L (55-170) H 04/28/21 21:19 Troponin T 0.014 ng/mL (0.00-0.029) 04/28/21 21:19 Total Protein 8.0 g/dL (6.3-8.2) 04/28/21 21:19 Albumin 4.2 g/dL (3.9-5) 04/28/21 21:19 Albumin/Globulin Ratio 1.1 % 04/28/21 21:19 TSH 12.780 mlU/mL (0.270-4.200) H 04/28/21 21:19 Urine Color Elisa (Yellow) 04/29/21 03:47 Urine Turbidity Cloudy (Clear) 04/29/21 03:47 Urine pH 6.0 (5.0-7.0) 04/29/21 03:47 Ur Specific [place] 1.015 (1.003-1.030) 04/29/21 03:47 Urine Protein >500 mg/dL (Negative) 04/29/21 03:47 Urine Glucose (UA) Neg mg/dL (Negative) 04/29/21 03:47 Urine Ketones Neg mg/dL (Negative) 04/29/21 03:47 Urine Blood Lg (Negative) 04/29/21 03:47 Urine Nitrite Neg (Negative) 04/29/21 03:47 Urine Bilirubin Neg (Negative) 04/29/21 03:47 Urine Urobilinogen < 2.0 mg/dL (<2.0) 04/29/21 03:47 Ur Leukocyte Esterase Lg (Negative) 04/29/21 03:47 Urine WBC (Auto) 176.0 /HPF (0.0-6.0) H 04/29/21 03:47 Urine RBC (Auto) > 182.0 /HPF (0.0-6.0) 04/29/21 03:47 U Epithel Cells (Auto) < 1.0 /HPF (0-13.0) 04/29/21 03:47 Urine Bacteria (Auto) 2+ /HPF (Negative) 04/29/21 03:47 Urine WBC Clumps 2+ /HPF 04/29/21 03:47 Urine Mucus Few /HPF 04/29/21 03:47 Salicylates < 0.3 mg/dL (2.8-20.0) L 04/28/21 21:19 Acetaminophen 5.0 ug/mL (10.0-30.0) L 04/28/21 21:19 Plasma/Serum Alcohol < 0.01 % (0-0.07) 04/28/21 21:19 Blood Type A POSITIVE 04/28/21 21:19 Antibody Screen Negative 04/28/21 21:19 - Imaging and Cardiology Chest x-ray: report reviewed CT Scan - head: report reviewed Assessment and Plan VTE prophylaxis?: Chemical Plan of care discussed with patient/family: Yes - Patient Problems (1) Acute metabolic encephalopathy Current Visit: Yes Status: Acute Plan to address problem: Admit to the medical telemetry. Metabolic encephalopathy most likely secondary to UTI. Half-normal saline at the rate of 100 cc/h. Levaquin 750 mg IV daily. We do the blood culture urine culture. Recheck CBC BMP in the morning (2) UTI (urinary tract infection) Current Visit: Yes Status: Acute Plan to address problem: Half-normal saline at the rate of 100 cc/h. Levaquin 750 mg IV daily. We do the blood culture urine culture. Recheck CBC BMP in the morning (3) Acute kidney injury Current Visit: Yes Status: Acute Plan to address problem: Avoid nephrotoxic drug. Renally dose medication. Half-normal saline at the rate of 100 cc/h. Recheck BMP in the morning (4) Dehydration Current Visit: Yes Status: Acute Plan to address problem: Half-normal saline at the rate of 100 cc/h. Recheck BMP in the morning (5) DVT prophylaxis Current Visit: Yes Status: Acute Plan to address problem: Heparin 5000 units subcu every 8 hours for DVT prophylaxis. Pepcid 20 mg IVP every 12 hours for GI prophylaxis. Patient is a full code
[2021-04-29] MEDS ORDERED: cefTRIAXone/NS 2 GM/100 ML 2 GM/100 ML BAG IV SCH (06:00)
[2021-04-29] MEDS: HEPARIN 5,000 UNIT/1 ML VIAL SUB-Q SCH ×3 (06:09→23:59)
--- NOTE | 2021-04-29 08:26 | Progress Note ---
Assessment and Plan Assessment and plan: History of present illness: 86-year-old male with history of urinary retention, skin cancer was brought to the emergency room because altered mental status. Patient has a neighbor who checks him from time to time. Patient had been seen in a day or 2. Found mumbling and not as coherent as he normally is. Patient has indwelling Mac catheter which appears to have been in for quite some time. Patient is denying any pain fevers chills cough cold congestion however the patient is a poor historian is unable to give any additional history In the emergency room initial. But patient is found to have a UTI. Patient BUN is 34 creatinine 1.4 Hospital course to date: 04/29/2021: Remains confused. Will continue IVF and abx infusions. Plan for speech eval. Will attempt to reach out for relatives. Patient was not able to provide contact info due to poor orientation. PT/OT ordered. Assessment and plan (1) Acute metabolic encephalopathy Plan to address problem: Admit to the medical telemetry. CT scan of the head shows no acute intracranial abnormality Metabolic encephalopathy most likely secondary to UTI. Half-normal saline at the rate of 100 cc/h. Levaquin 750 mg IV daily. We do the blood culture urine culture. Recheck CBC BMP in the morning (2) UTI (urinary tract infection) Plan to address problem: Half-normal saline at the rate of 100 cc/h. Levaquin 750 mg IV daily. We do the blood culture urine culture. Recheck CBC BMP in the morning (3) Acute kidney injury due to vasomotor nephropathy Plan to address problem: Avoid nephrotoxic drug. Renally dose medication. Half-normal saline at the rate of 100 cc/h. Recheck BMP in the morning (4) Dehydration Plan to address problem: Half-normal saline at the rate of 100 cc/h. Recheck BMP in the morning (5) DVT prophylaxis Plan to address problem: Heparin 5000 units subcu every 8 hours for DVT prophylaxis. Pepcid 20 mg IVP every 12 hours for GI prophylaxis. Patient is a full code History Interval history: remains confused on encounter. Difficult to understand. Hospitalist Physical - Physical exam Narrative exam: Physical Exam: Constitutional: Alert, cooperative. No acute distress. Elderly appearing male appearing discheveled. Head, Ears, Nose: Normocephalic, atraumatic. External ears, nose normal Eyes: Conjunctivae/corneas clear. No icterus. No ptosis. Neck: Supple, no meningeal signs Oral: very dry oropharynx Cardiovascular: S1, S2 normal. Respiratory: Good air entry, clear to auscultation bilaterally GI: Soft, non-tender; bowel sounds normal. No peritoneal signs. Musculoskeletal: No pedal edema, no cyanosis. Skin: Multiple skin lesions on forhead and right cheek. Appear chronic. No rash or abscess, see nursing assessment for full skin exam Hem/Lymphatic: No palpable cervical or supraclavicular nodes. No lymphangitis Psych: Mood ok. Affect normal Neurological: Awake, alert, oriented. No gross abnormality - Constitutional Vitals: Temp Pulse Resp BP Pulse Ox 98.2 F 64 19 166/81 99 04/29/21 00:40 04/29/21 05:45 04/29/21 05:45 04/29/21 05:45 04/29/21 05:45 General appearance: Present: no acute distress, well-nourished HEART Score - HEART Score Troponin: Troponin T 0.014 ng/mL (0.00-0.029) 04/28/21 21:19 Results - Labs CBC & Chem 7: 04/28/21 21:19 04/28/21 21:19 Labs: Laboratory Last Values WBC 4.6 K/mm3 (4.5-11.0) 04/28/21 21:19 RBC 5.00 M/mm3 (3.65-5.03) 04/28/21 21:19 Hgb 14.1 gm/dl (11.8-15.2) 04/28/21 21:19 Hct 42.2 % (35.5-45.6) 04/28/21 21:19 MCV 84 fl (84-94) 04/28/21 21:19 MCH 28 pg (28-32) 04/28/21 21: MCHC 33 % (32-34) 04/28/21 21: RDW 15.4 % (13.2-15.2) H 04/28/21 21:19 Plt Count 126 K/mm3 (140-440) L 04/28/21 21:19 Lymph % (Auto) 16.6 % (13.4-35.0) 04/28/21 21: [place] % (Auto) 5.2 % (0.0-7.3) 04/28/21 21:19 Eos % (Auto) 0.1 % (0.0-4.3) 04/28/21 21:19 Baso % (Auto) 0.3 % (0.0-1.8) 04/28/21 21:19 Lymph # (Auto) 0.8 K/mm3 (1.2-5.4) L 04/28/21 21:19 [place] # (Auto) 0.2 K/mm3 (0.0-0.8) 04/28/21 21:19 Eos # (Auto) 0.0 K/mm3 (0.0-0.4) 04/28/21 21:19 Baso # (Auto) 0.0 K/mm3 (0.0-0.1) 04/28/21 21:19 Seg Neutrophils % 77.8 % (40.0-70.0) H 04/28/21 21:19 Seg Neutrophils # 3.6 K/mm3 (1.8-7.7) 04/28/21 21:19 PT 13.1 Sec. (12.2-14.9) 04/28/21 21:19 INR 0.93 (0.87-1.13) 04/28/21 21:19 APTT 32.0 Sec. (24.2-36.6) 04/28/21 21:19 Sodium 133 mmol/L (137-145) L 04/28/21 21:19 Potassium 4.3 mmol/L (3.6-5.0) 04/28/21 21:19 Chloride 97.3 mmol/L (98-107) L 04/28/21 21:19 Carbon Dioxide 21 mmol/L (22-30) L 04/28/21 21:19 Anion Gap 19 mmol/L 04/28/21 21:19 BUN 34 mg/dL (9-20) H 04/28/21 21:19 Creatinine 1.4 mg/dL (0.8-1.3) H 04/28/21 21:19 Estimated GFR 48 ml/min 04/28/21 21:19 BUN/Creatinine Ratio 24 % 04/28/21 21:19 Glucose 108 mg/dL (75-100) H 04/28/21 21:19 Lactic Acid 1.40 mmol/L (0.7-2.0) 04/28/21 21:19 Calcium 8.8 mg/dL (8.4-10.2) 04/28/21 21:19 Total Bilirubin 0.40 mg/dL (0.1-1.2) 04/28/21 21:19 AST 36 units/L (5-40) 04/28/21 21:19 ALT 16 units/L (7-56) 04/28/21 21:19 Alkaline Phosphatase 53 units/L (35-129) 04/28/21 21:19 Ammonia 21.0 umol/L (25-60) L 04/28/21 21:19 Total Creatine Kinase 215 units/L (55-170) H 04/28/21 21:19 Troponin T 0.014 ng/mL (0.00-0.029) 04/28/21 21:19 Total Protein 8.0 g/dL (6.3-8.2) 04/28/21 21:19 Albumin 4.2 g/dL (3.9-5) 04/28/21 21:19 Albumin/Globulin Ratio 1.1 % 04/28/21 21:19 TSH 12.780 mlU/mL (0.270-4.200) H 04/28/21 21:19 Urine Color Elisa (Yellow) 04/29/21 03:47 Urine Turbidity Cloudy (Clear) 04/29/21 03:47 Urine pH 6.0 (5.0-7.0) 04/29/21 03:47 Ur Specific [place] 1.015 (1.003-1.030) 04/29/21 03:47 Urine Protein >500 mg/dL (Negative) 04/29/21 03:47 Urine Glucose (UA) Neg mg/dL (Negative) 04/29/21 03:47 Urine Ketones Neg mg/dL (Negative) 04/29/21 03:47 Urine Blood Lg (Negative) 04/29/21 03:47 Urine Nitrite Neg (Negative) 04/29/21 03:47 Urine Bilirubin Neg (Negative) 04/29/21 03:47 Urine Urobilinogen < 2.0 mg/dL (<2.0) 04/29/21 03:47 Ur Leukocyte Esterase Lg (Negative) 04/29/21 03:47 Urine WBC (Auto) 176.0 /HPF (0.0-6.0) H 04/29/21 03:47 Urine RBC (Auto) > 182.0 /HPF (0.0-6.0) 04/29/21 03:47 U Epithel Cells (Auto) < 1.0 /HPF (0-13.0) 04/29/21 03:47 Urine Bacteria (Auto) 2+ /HPF (Negative) 04/29/21 03:47 Urine WBC Clumps 2+ /HPF 04/29/21 03:47 Urine Mucus Few /HPF 04/29/21 03:47 Salicylates < 0.3 mg/dL (2.8-20.0) L 04/28/21 21:19 Acetaminophen 5.0 ug/mL (10.0-30.0) L 04/28/21 21:19 Plasma/Serum Alcohol < 0.01 % (0-0.07) 04/28/21 21:19 Blood Type A POSITIVE 04/28/21 21:19 Antibody Screen Negative 04/28/21 21:19 Active Medications - Current Medications Current Medications: Generic Name Dose Route Start Last Admin Trade Name Freq PRN Reason Stop Dose Admin Acetaminophen 650 mg 04/29/21 05:28 Acetaminophen 325 Mg Tab PO Q4H PRN Pain MILD(1-3)/Fever >100.5/COLLIER Albuterol 2.5 mg 04/29/21 05:28 Albuterol 2.5 Mg/3 Ml Nebu IH Q4HRT PRN Shortness Of Breath Famotidine 20 mg 04/29/21 10:00 Famotidine 20 Mg/2 Ml Inj IV BID PURNIMA Heparin Sodium (Porcine) 5,000 unit 04/29/21 06:00 04/29/21 06:09 Heparin 5,000 Unit/1 Ml Vial SUB-Q 5,000 unit Q8HR PURNIMA Administration Hydromorphone HCl 0.5 mg 04/29/21 05:28 Hydromorphone 1 Mg/1 Ml Inj IV Q3H PRN Pain , Severe (7-10) Sodium Chloride 1,000 mls @ 100 mls/hr 04/29/21 06:00 Nacl 0.45% 1000 Ml IV DIRECT PURNIMA Ceftriaxone Sodium 2 gm in 100 mls @ 200 mls/hr 04/29/21 06:00 Rocephin/Ns 2 Gm/100 Ml IV Q24H [facility] Protocol Levofloxacin/Dextrose 750 mg in 150 mls @ 100 mls/hr 04/29/21 06:00 Levaquin 750mg/150ml IV Q24H [facility] Protocol Ondansetron HCl 4 mg 04/29/21 05:28 Ondansetron 4 Mg/2 Ml Inj IV Q8H PRN Nausea And Vomiting Oxycodone/Acetaminophen 1 tab 04/29/21 05:28 Oxycodone /Acetaminophen 5-325mg Tab PO Q6H PRN Pain, Moderate (4-6) Sodium Chloride 10 ml 04/29/21 10:00 Sodium Chloride 0.9% 10 Ml Flush Syringe IV BID PURNIMA Sodium Chloride 10 ml 04/29/21 05:28 Sodium Chloride 0.9% 10 Ml Flush Syringe IV PRN PRN LINE FLUSH
[2021-04-29] MEDS: FAMOTIDINE 20 MG/2 ML INJ IV SCH ×2 (11:51→23:58)
[2021-04-29] MEDS: SODIUM CHLORIDE 0.45% 1000 ML 1,000 ML IV SCH (23:59)
[2021-04-30 05:31] LABS: Basophils % (Auto) 0.3 % (0.0-1.8); Eosinophils % (Auto) 0.1 % (0.0-4.3); Hematocrit 41.3 % (35.5-45.6); Hemoglobin 13.6 gm/dl (11.8-15.2); Lymphocytes # (Auto) 1.1 K/mm3 (1.2-5.4); Lymphocytes % (Auto) 21.9 % (13.4-35.0); Mean Corpuscular HGB Conc 33 % (32-34); Mean Corpuscular Volume 85 fl (84-94); Monocytes # (Auto) 0.3 K/mm3 (0.0-0.8); Monocytes % (Auto) 6.5 % (0.0-7.3); Platelet Count 105 K/mm3 (140-440); Red Blood Count 4.88 M/mm3 (3.65-5.03); Red Cell Distribution Width 15.8 % (13.2-15.2)
[2021-04-30 05:42] LABS: Calcium 8.8 mg/dL (8.4-10.2)
[2021-04-30] MEDS: FAMOTIDINE 20 MG/2 ML INJ IV SCH ×2 (10:10→21:09)
--- NOTE | 2021-04-30 11:39 | Progress Note ---
Assessment and Plan Assessment and plan: History of present illness: 86-year-old male with history of urinary retention, skin cancer was brought to the emergency room because altered mental status. Patient has a neighbor who checks him from time to time. Patient had been seen in a day or 2. Found mumbling and not as coherent as he normally is. Patient has indwelling Mac catheter which appears to have been in for quite some time. Patient is denying any pain fevers chills cough cold congestion however the patient is a poor historian is unable to give any additional history In the emergency room initial. But patient is found to have a UTI. Patient BUN is 34 creatinine 1.4 Hospital course to date: 04/29/2021: Remains confused. Will continue IVF and abx infusions. Plan for speech eval. Will attempt to reach out for relatives. Patient was not able to provide contact info due to poor orientation. PT/OT ordered. 04/30/2021: Patient appears to be less confused today. However high suspicion for dementia in this patient. Attempted to call both numbers listed in chart for her daughter and other relative; no response from either. Patient was resting comfortably appears to be eating some of breakfast. He still appears very disheveled, dehydrated, and malnourished. We will continue to hydrate with IV fluid and continue IV antibiotics. Assessment and plan (1) Acute metabolic encephalopathy Plan to address problem: Admit to the medical telemetry. CT scan of the head shows no acute intracranial abnormality Metabolic encephalopathy most likely secondary to UTI. Unclear if patient has underlying dementia Half-normal saline at the rate of 100 cc/h. Levaquin 750 mg IV daily. We do the blood culture urine culture. Recheck CBC BMP in the morning (2) UTI (urinary tract infection) Plan to address problem: Half-normal saline at the rate of 100 cc/h. Levaquin 750 mg IV daily. We do the blood culture urine culture. Recheck CBC BMP in the morning (3) Acute kidney injury due to vasomotor nephropathy Plan to address problem: Avoid nephrotoxic drug. Renally dose medication. Half-normal saline at the rate of 100 cc/h. Recheck BMP in the morning (4) Dehydration Plan to address problem: Half-normal saline at the rate of 100 cc/h. Recheck BMP in the morning (5) Skin cancer Plan to address problem: Chronic Multiple skin cancer lesions appreciated on exam, unclear of chronicity Will recommend outpatient follow-up with dermatology (6) DVT prophylaxis Plan to address problem: Heparin 5000 units subcu every 8 hours for DVT prophylaxis. Pepcid 20 mg IVP every 12 hours for GI prophylaxis. Patient is a full code History Interval history: Unclear what baseline mentation is but suspect this patient has underlying dementia as patient is only able to recite his own name and not able to communicate information beyond this. He is not in any distress. He follows commands. Hospitalist Physical - Physical exam Narrative exam: Physical Exam: Constitutional: Alert, cooperative. No acute distress. Elderly appearing male appearing discheveled, dehydrated Head, Ears, Nose: Normocephalic, atraumatic. External ears, nose normal Eyes: Conjunctivae/corneas clear. No icterus. No ptosis. Neck: Supple, no meningeal signs Oral: very dry oropharynx Cardiovascular: S1, S2 normal. Respiratory: Good air entry, clear to auscultation bilaterally GI: Soft, non-tender; bowel sounds normal. No peritoneal signs. Musculoskeletal: No pedal edema, no cyanosis. Skin: Multiple cancerous appearing skin lesions on forehead and right cheek. Appears ongoing and untreated. No rash or abscess, see nursing assessment for full skin exam Hem/Lymphatic: No palpable cervical or supraclavicular nodes. No lymphangitis Psych: Mood ok. Affect normal Neurological: Awake, alert, oriented x1 (name). No gross abnormality - Constitutional Vitals: Temp Pulse Resp BP Pulse Ox 97.7 F 75 18 167/81 96 04/30/21 06:33 04/30/21 06:33 04/30/21 06:33 04/30/21 06:33 04/30/21 11:04 General appearance: Present: no acute distress, well-nourished HEART Score - HEART Score Troponin: Troponin T 0.014 ng/mL (0.00-0.029) 04/28/21 21:19 Results - Labs CBC & Chem 7: 04/30/21 04:13 04/30/21 04:13 Labs: Laboratory Last Values WBC 5.2 K/mm3 (4.5-11.0) 04/30/21 04:13 RBC 4.88 M/mm3 (3.65-5.03) 04/30/21 04:13 Hgb 13.6 gm/dl (11.8-15.2) 04/30/21 04:13 Hct 41.3 % (35.5-45.6) 04/30/21 04:13 MCV 85 fl (84-94) 04/30/21 04:13 MCH 28 pg (28-32) 04/30/21 04:13 MCHC 33 % (32-34) 04/30/21 04:13 RDW 15.8 % (13.2-15.2) H 04/30/21 04:13 Plt Count 105 K/mm3 (140-440) L 04/30/21 04:13 Lymph % (Auto) 21.9 % (13.4-35.0) 04/30/21 04:13 [place] % (Auto) 6.5 % (0.0-7.3) 04/30/21 04:13 Eos % (Auto) 0.1 % (0.0-4.3) 04/30/21 04:13 Baso % (Auto) 0.3 % (0.0-1.8) 04/30/21 04:13 Lymph # (Auto) 1.1 K/mm3 (1.2-5.4) L 04/30/21 04:13 [place] # (Auto) 0.3 K/mm3 (0.0-0.8) 04/30/21 04:13 Eos # (Auto) 0.0 K/mm3 (0.0-0.4) 04/30/21 04:13 Baso # (Auto) 0.0 K/mm3 (0.0-0.1) 04/30/21 04:13 Seg Neutrophils % 71.2 % (40.0-70.0) H 04/30/21 04:13 Seg Neutrophils # 3.7 K/mm3 (1.8-7.7) 04/30/21 04:13 PT 13.1 Sec. (12.2-14.9) 04/28/21 21:19 INR 0.93 (0.87-1.13) 04/28/21 21:19 APTT 32.0 Sec. (24.2-36.6) 04/28/21 21:19 Sodium 134 mmol/L (137-145) L 04/30/21 04:13 Potassium 4.7 mmol/L (3.6-5.0) 04/30/21 04:13 Chloride 101.9 mmol/L (98-107) 04/30/21 04:13 Carbon Dioxide 22 mmol/L (22-30) 04/30/21 04:13 Anion Gap 15 mmol/L 04/30/21 04:13 BUN 34 mg/dL (9-20) H 04/30/21 04:13 Creatinine 1.2 mg/dL (0.8-1.3) 04/30/21 04:13 Estimated GFR 58 ml/min 04/30/21 04:13 BUN/Creatinine Ratio 28 % 04/30/21 04:13 Glucose 88 mg/dL (75-100) 04/30/21 04:13 Lactic Acid 1.40 mmol/L (0.7-2.0) 04/28/21 21:19 Calcium 8.8 mg/dL (8.4-10.2) 04/30/21 04:13 Total Bilirubin 0.40 mg/dL (0.1-1.2) 04/28/21 21:19 AST 36 units/L (5-40) 04/28/21 21:19 ALT 16 units/L (7-56) 04/28/21 21:19 Alkaline Phosphatase 53 units/L (35-129) 04/28/21 21:19 Ammonia 21.0 umol/L (25-60) L 04/28/21 21:19 Total Creatine Kinase 215 units/L (55-170) H 04/28/21 21:19 Troponin T 0.014 ng/mL (0.00-0.029) 04/28/21 21:19 Total Protein 8.0 g/dL (6.3-8.2) 04/28/21 21:19 Albumin 4.2 g/dL (3.9-5) 04/28/21 21:19 Albumin/Globulin Ratio 1.1 % 04/28/21 21:19 TSH 12.780 mlU/mL (0.270-4.200) H 04/28/21 21:19 Urine Color [place] (Yellow) 04/29/21 03:47 Urine Turbidity Cloudy (Clear) 04/29/21 03:47 Urine pH 6.0 (5.0-7.0) 04/29/21 03:47 Ur Specific [place] 1.015 (1.003-1.030) 04/29/21 03:47 Urine Protein >500 mg/dL (Negative) 04/29/21 03:47 Urine Glucose (UA) Neg mg/dL (Negative) 04/29/21 03:47 Urine Ketones Neg mg/dL (Negative) 04/29/21 03:47 Urine Blood Lg (Negative) 04/29/21 03:47 Urine Nitrite Neg (Negative) 04/29/21 03:47 Urine Bilirubin Neg (Negative) 04/29/21 03:47 Urine Urobilinogen < 2.0 mg/dL (<2.0) 04/29/21 03:47 Ur Leukocyte Esterase Lg (Negative) 04/29/21 03:47 Urine WBC (Auto) 176.0 /HPF (0.0-6.0) H 04/29/21 03:47 Urine RBC (Auto) > 182.0 /HPF (0.0-6.0) 04/29/21 03:47 U Epithel Cells (Auto) < 1.0 /HPF (0-13.0) 04/29/21 03:47 Urine Bacteria (Auto) 2+ /HPF (Negative) 04/29/21 03:47 Urine WBC Clumps 2+ /HPF 04/29/21 03:47 Urine Mucus Few /HPF 04/29/21 03:47 Salicylates < 0.3 mg/dL (2.8-20.0) L 04/28/21 21:19 Acetaminophen 5.0 ug/mL (10.0-30.0) L 04/28/21 21:19 Plasma/Serum Alcohol < 0.01 % (0-0.07) 04/28/21 21:19 Blood Type A POSITIVE 04/28/21 21:19 Antibody Screen Negative 04/28/21 21:19 Microbiology: Microbiology 04/28/21 21:19 Peripheral/Venous Blood Culture - Preliminary Culture in Progress 04/28/21 21:30 Peripheral/Venous Blood Culture - Preliminary Culture in Progress Mac/IV: Voiding Method Indwelling Catheter Active Medications - Current Medications Current Medications: Generic Name Dose Route Start Last Admin Trade Name Freq PRN Reason Stop Dose Admin Acetaminophen 650 mg 04/29/21 05:28 Acetaminophen 325 Mg Tab PO Q4H PRN Pain MILD(1-3)/Fever >100.5/COLLIER Albuterol 2.5 mg 04/29/21 05:28 Albuterol 2.5 Mg/3 Ml Nebu IH Q4HRT PRN Shortness Of Breath Famotidine 10 mg 04/29/21 10:00 04/30/21 10:10 Famotidine 20 Mg/2 Ml Inj IV 10 mg BID PURNIMA Administration Heparin Sodium (Porcine) 5,000 unit 04/29/21 06:00 04/29/21 23:59 Heparin 5,000 Unit/1 Ml Vial SUB-Q 5,000 unit Q8HR PURNIMA Administration Hydromorphone HCl 0.5 mg 04/29/21 05:28 Hydromorphone 1 Mg/1 Ml Inj IV Q3H PRN Pain , Severe (7-10) Sodium Chloride 1,000 mls @ 100 mls/hr 04/29/21 06:00 04/29/21 23:59 Nacl 0.45% 1000 Ml IV 100 mls/hr DIRECT PURNIMA Administration Levofloxacin/Dextrose 750 mg in 150 mls @ 100 mls/hr 05/01/21 10:00 Levaquin 750mg/150ml IV Q48H [facility] Protocol Ondansetron HCl 4 mg 04/29/21 05:28 Ondansetron 4 Mg/2 Ml Inj IV Q8H PRN Nausea And Vomiting Oxycodone/Acetaminophen 1 tab 04/29/21 05:28 Oxycodone /Acetaminophen 5-325mg Tab PO Q6H PRN Pain, Moderate (4-6) Sodium Chloride 10 ml 04/29/21 10:00 04/30/21 10:10 Sodium Chloride 0.9% 10 Ml Flush Syringe IV 10 ml BID PURNIMA Administration Sodium Chloride 10 ml 04/29/21 05:28 Sodium Chloride 0.9% 10 Ml Flush Syringe IV PRN PRN LINE FLUSH
[2021-04-30] MEDS: HEPARIN 5,000 UNIT/1 ML VIAL SUB-Q SCH ×2 (16:45→21:11)
[2021-04-30] MEDS: SODIUM CHLORIDE 0.45% 1000 ML 1,000 ML IV SCH (21:27)
[2021-05-01] MEDS: HEPARIN 5,000 UNIT/1 ML VIAL SUB-Q SCH ×3 (06:27→22:45)
--- NOTE | 2021-05-01 08:10 | Progress Note ---
Assessment and Plan Assessment and plan: History of present illness: 86-year-old male with history of urinary retention, skin cancer was brought to the emergency room because altered mental status. Patient has a neighbor who checks him from time to time. Patient had been seen in a day or 2. Found mumbling and not as coherent as he normally is. Patient has indwelling Mac catheter which appears to have been in for quite some time. Patient is denying any pain fevers chills cough cold congestion however the patient is a poor historian is unable to give any additional history In the emergency room initial. But patient is found to have a UTI. Patient BUN is 34 creatinine 1.4 Hospital course to date: 04/29/2021: Remains confused. Will continue IVF and abx infusions. Plan for speech eval. Will attempt to reach out for relatives. Patient was not able to provide contact info due to poor orientation. PT/OT ordered. 04/30/2021: Patient appears to be less confused today. However high suspicion for dementia in this patient. Attempted to call both numbers listed in chart for her daughter and other relative; no response from either. Patient was resting comfortably appears to be eating some of breakfast. He still appears very disheveled, dehydrated, and malnourished. We will continue to hydrate with IV fluid and continue IV antibiotics. 05/01/2021: Continues to follow commands. Attempt to call Willie Mendoza (MJ) no response, left VM. D/w CM and social work job titles this AM. Assessment and plan (1) Acute metabolic encephalopathy Plan to address problem: Admit to the medical telemetry. CT scan of the head shows no acute intracranial abnormality Metabolic encephalopathy most likely secondary to UTI. Unclear if patient has underlying dementia Half-normal saline at the rate of 100 cc/h. Levaquin 750 mg IV daily. We do the blood culture urine culture. Recheck CBC BMP in the morning (2) UTI (urinary tract infection) Plan to address problem: Half-normal saline at the rate of 100 cc/h. Levaquin 750 mg IV daily. We do the blood culture urine culture. Recheck CBC BMP in the morning (3) Acute kidney injury due to vasomotor nephropathy Plan to address problem: Avoid nephrotoxic drug. Renally dose medication. Half-normal saline at the rate of 100 cc/h. Recheck BMP in the morning (4) Dehydration Plan to address problem: Half-normal saline at the rate of 100 cc/h. Recheck BMP in the morning (5) Skin cancer Plan to address problem: Chronic Multiple skin cancer lesions appreciated on exam, unclear of chronicity Will recommend outpatient follow-up with dermatology (6) DVT prophylaxis Plan to address problem: Heparin 5000 units subcu every 8 hours for DVT prophylaxis. Pepcid 20 mg IVP every 12 hours for GI prophylaxis. Patient is a full code History Interval history: Continues to follow commands. Attempt to call Willie Mendoza (MJ) no response, left VM. D/w CM and social work job titles this AM. Hospitalist Physical - Physical exam Narrative exam: Physical Exam: Constitutional: Alert, cooperative. No acute distress. Elderly appearing male appearing discheveled, dehydrated Head, Ears, Nose: Normocephalic, atraumatic. External ears, nose normal Eyes: Conjunctivae/corneas clear. No icterus. No ptosis. Neck: Supple, no meningeal signs Oral: very dry oropharynx Cardiovascular: S1, S2 normal. Respiratory: Good air entry, clear to auscultation bilaterally GI: Soft, non-tender; bowel sounds normal. No peritoneal signs. Musculoskeletal: No pedal edema, no cyanosis. Skin: Multiple cancerous appearing skin lesions on forehead and right cheek. Appears ongoing and untreated. No rash or abscess, see nursing assessment for full skin exam Hem/Lymphatic: No palpable cervical or supraclavicular nodes. No lymphangitis Psych: Mood ok. Affect normal Neurological: Awake, alert, oriented x1 (name). No gross abnormality - Constitutional Vitals: Temp Pulse Resp BP Pulse Ox 98.6 F 74 18 174/88 97 05/01/21 04:36 05/01/21 04:36 05/01/21 04:36 05/01/21 04:36 05/01/21 06:00 General appearance: Present: no acute distress, well-nourished HEART Score - HEART Score Troponin: Troponin T 0.014 ng/mL (0.00-0.029) 04/28/21 21:19 Results - Labs CBC & Chem 7: 04/30/21 04:13 04/30/21 04:13 Labs: Laboratory Last Values WBC 5.2 K/mm3 (4.5-11.0) 04/30/21 04:13 RBC 4.88 M/mm3 (3.65-5.03) 04/30/21 04:13 Hgb 13.6 gm/dl (11.8-15.2) 04/30/21 04:13 Hct 41.3 % (35.5-45.6) 04/30/21 04:13 MCV 85 fl (84-94) 04/30/21 04:13 MCH 28 pg (28-32) 04/30/21 04:13 MCHC 33 % (32-34) 04/30/21 04:13 RDW 15.8 % (13.2-15.2) H 04/30/21 04:13 Plt Count 105 K/mm3 (140-440) L 04/30/21 04:13 Lymph % (Auto) 21.9 % (13.4-35.0) 04/30/21 04:13 [place] % (Auto) 6.5 % (0.0-7.3) 04/30/21 04:13 Eos % (Auto) 0.1 % (0.0-4.3) 04/30/21 04:13 Baso % (Auto) 0.3 % (0.0-1.8) 04/30/21 04:13 Lymph # (Auto) 1.1 K/mm3 (1.2-5.4) L 04/30/21 04:13 [place] # (Auto) 0.3 K/mm3 (0.0-0.8) 04/30/21 04:13 Eos # (Auto) 0.0 K/mm3 (0.0-0.4) 04/30/21 04:13 Baso # (Auto) 0.0 K/mm3 (0.0-0.1) 04/30/21 04:13 Seg Neutrophils % 71.2 % (40.0-70.0) H 04/30/21 04:13 Seg Neutrophils # 3.7 K/mm3 (1.8-7.7) 04/30/21 04:13 PT 13.1 Sec. (12.2-14.9) 04/28/21 21:19 INR 0.93 (0.87-1.13) 04/28/21 21:19 APTT 32.0 Sec. (24.2-36.6) 04/28/21 21:19 Sodium 134 mmol/L (137-145) L 04/30/21 04:13 Potassium 4.7 mmol/L (3.6-5.0) 04/30/21 04:13 Chloride 101.9 mmol/L (98-107) 04/30/21 04:13 Carbon Dioxide 22 mmol/L (22-30) 04/30/21 04:13 Anion Gap 15 mmol/L 04/30/21 04:13 BUN 34 mg/dL (9-20) H 04/30/21 04:13 Creatinine 1.2 mg/dL (0.8-1.3) 04/30/21 04:13 Estimated GFR 58 ml/min 04/30/21 04:13 BUN/Creatinine Ratio 28 % 04/30/21 04:13 Glucose 88 mg/dL (75-100) 04/30/21 04:13 Lactic Acid 1.40 mmol/L (0.7-2.0) 04/28/21 21:19 Calcium 8.8 mg/dL (8.4-10.2) 04/30/21 04:13 Total Bilirubin 0.40 mg/dL (0.1-1.2) 04/28/21 21:19 AST 36 units/L (5-40) 04/28/21 21:19 ALT 16 units/L (7-56) 04/28/21 21:19 Alkaline Phosphatase 53 units/L (35-129) 04/28/21 21:19 Ammonia 21.0 umol/L (25-60) L 04/28/21 21:19 Total Creatine Kinase 215 units/L (55-170) H 04/28/21 21:19 Troponin T 0.014 ng/mL (0.00-0.029) 04/28/21 21:19 Total Protein 8.0 g/dL (6.3-8.2) 04/28/21 21:19 Albumin 4.2 g/dL (3.9-5) 04/28/21 21:19 Albumin/Globulin Ratio 1.1 % 04/28/21 21:19 TSH 12.780 mlU/mL (0.270-4.200) H 04/28/21 21:19 Urine Color Elisa (Yellow) 04/29/21 03:47 Urine Turbidity Cloudy (Clear) 04/29/21 03:47 Urine pH 6.0 (5.0-7.0) 04/29/21 03:47 Ur Specific [place] 1.015 (1.003-1.030) 04/29/21 03:47 Urine Protein >500 mg/dL (Negative) 04/29/21 03:47 Urine Glucose (UA) Neg mg/dL (Negative) 04/29/21 03:47 Urine Ketones Neg mg/dL (Negative) 04/29/21 03:47 Urine Blood Lg (Negative) 04/29/21 03:47 Urine Nitrite Neg (Negative) 04/29/21 03:47 Urine Bilirubin Neg (Negative) 04/29/21 03:47 Urine Urobilinogen < 2.0 mg/dL (<2.0) 04/29/21 03:47 Ur Leukocyte Esterase Lg (Negative) 04/29/21 03:47 Urine WBC (Auto) 176.0 /HPF (0.0-6.0) H 04/29/21 03:47 Urine RBC (Auto) > 182.0 /HPF (0.0-6.0) 04/29/21 03:47 U Epithel Cells (Auto) < 1.0 /HPF (0-13.0) 04/29/21 03:47 Urine Bacteria (Auto) 2+ /HPF (Negative) 04/29/21 03:47 Urine WBC Clumps 2+ /HPF 04/29/21 03:47 Urine Mucus Few /HPF 04/29/21 03:47 Salicylates < 0.3 mg/dL (2.8-20.0) L 04/28/21 21:19 Acetaminophen 5.0 ug/mL (10.0-30.0) L 04/28/21 21:19 Plasma/Serum Alcohol < 0.01 % (0-0.07) 04/28/21 21:19 Blood Type A POSITIVE 04/28/21 21:19 Antibody Screen Negative 04/28/21 21:19 Microbiology: Microbiology 04/28/21 21:19 Peripheral/Venous Blood Culture - Preliminary NO GROWTH AFTER 24 HOURS 04/28/21 21:30 Peripheral/Venous Blood Culture - Preliminary NO GROWTH AFTER 24 HOURS 04/28/21 Unknown Urine,Suprapubic Urine Culture - Preliminary Gram Negative Lionel Mac/IV: Voiding Method Indwelling Catheter Active Medications - Current Medications Current Medications: Generic Name Dose Route Start Last Admin Trade Name Freq PRN Reason Stop Dose Admin Acetaminophen 650 mg 04/29/21 05:28 Acetaminophen 325 Mg Tab PO Q4H PRN Pain MILD(1-3)/Fever >100.5/COLLIER Albuterol 2.5 mg 04/29/21 05:28 Albuterol 2.5 Mg/3 Ml Nebu IH Q4HRT PRN Shortness Of Breath Famotidine 10 mg 04/29/21 10:00 04/30/21 21:09 Famotidine 20 Mg/2 Ml Inj IV 10 mg BID PURNIMA Administration Heparin Sodium (Porcine) 5,000 unit 04/29/21 06:00 05/01/21 06:27 Heparin 5,000 Unit/1 Ml Vial SUB-Q 5,000 unit Q8HR PURNIMA Administration Hydromorphone HCl 0.5 mg 04/29/21 05:28 Hydromorphone 1 Mg/1 Ml Inj IV Q3H PRN Pain , Severe (7-10) Sodium Chloride 1,000 mls @ 100 mls/hr 04/29/21 06:00 04/30/21 21:27 Nacl 0.45% 1000 Ml IV 100 mls/hr DIRECT PURNIMA Administration Levofloxacin/Dextrose 750 mg in 150 mls @ 100 mls/hr 05/01/21 10:00 Levaquin 750mg/150ml IV Q48H PURNIMA Protocol Ondansetron HCl 4 mg 04/29/21 05:28 Ondansetron 4 Mg/2 Ml Inj IV Q8H PRN Nausea And Vomiting Oxycodone/Acetaminophen 1 tab 04/29/21 05:28 Oxycodone /Acetaminophen 5-325mg Tab PO Q6H PRN Pain, Moderate (4-6) Sodium Chloride 10 ml 04/29/21 10:00 04/30/21 21:14 Sodium Chloride 0.9% 10 Ml Flush Syringe IV 10 ml BID PURNIMA Administration Sodium Chloride 10 ml 04/29/21 05:28 Sodium Chloride 0.9% 10 Ml Flush Syringe IV PRN PRN LINE FLUSH
--- NOTE | 2021-05-01 09:43 | Electrocardiograph Report ---
[facility] Test Date: 2021-04-29 Test Time: 01:14:28 Pat Name: ANTHONY MACK Department: Room: A483 1 Gender: M Reproduction Technician: CAYETANO : 1935 Requested By: ERLINDA WEISS Order Number: [id number] Reading MD: José Miguel Martinez Measurements Intervals [place] Rate: 78 P: 76 MN: 130 QRS: 50 QRSD: 81 T: 45 QT: 414 QTc: 471 Interpretive Statements Sinus rhythm Multiple ventricular premature complexes No previous ECG available for comparison Electronically Signed On 05-01-2021 9:43:11 EDT by José Miguel Martinez
[2021-05-01] MEDS: FAMOTIDINE 20 MG/2 ML INJ IV SCH ×2 (11:08→22:44)
[2021-05-01] MEDS: SODIUM CHLORIDE 0.45% 1000 ML 1,000 ML IV SCH (18:12)
[2021-05-02] MEDS: HEPARIN 5,000 UNIT/1 ML VIAL SUB-Q SCH ×3 (07:51→22:35)
[2021-05-02] MEDS: SODIUM CHLORIDE 0.45% 1000 ML 1,000 ML IV SCH (07:52)
[2021-05-02 09:05] LABS: Hematocrit 42.8 % (35.5-45.6); Mean Corpuscular HGB Conc 33 % (32-34); Mean Corpuscular Volume 84 fl (84-94); Platelet Count 100 K/mm3 (140-440); Red Blood Count 5.09 M/mm3 (3.65-5.03); Red Cell Distribution Width 15.6 % (13.2-15.2)
[2021-05-02 09:26] LABS: BUN/Creatinine Ratio 27; Blood Urea Nitrogen 30 mg/dL (9-20); Calcium 8.7 mg/dL (8.4-10.2); Hemolysis Index 11
[2021-05-02] MEDS: FAMOTIDINE 20 MG/2 ML INJ IV SCH ×2 (11:36→22:37)
--- NOTE | 2021-05-02 16:47 | Progress Note ---
Assessment and Plan Assessment and plan: Patient is 86-year-old male who presented with altered mental status after being found by a neighbor. Subsequently found to have UTI has had some improvement in mental status with treatment. Currently awaiting placement to SNF. #Acute metabolic encephalopathy -CT head negative on admission -Likely secondary to UTI, unclear patient has underlying dementia -Not responsive to commands -Continue to treat UTI #UTI -Urine culture positive for E. coli sensitive to Levaquin -We will continue Levaquin for 7 days total -Blood culture negative x72 hours #DONTA -Resolved #Skin cancer -Multiple lesions across body most prominent on the head -Will need outpatient follow-up with dermatology #DVT prophylaxis -Continue subcutaneous heparin Disposition Plan: SNF Total Time Spent with Patient (Minutes): 30 minutes Hospitalist Physical - Constitutional Vitals: Temp Pulse Resp BP Pulse Ox 98.5 F 77 22 137/72 93 05/02/21 11:54 05/02/21 07:56 05/02/21 11:54 05/02/21 11:54 05/02/21 07:56 General appearance: Present: no acute distress, well-nourished, cachectic, disheveled, other (multiple skin lesions ranging from necrotic plaques to nodules on the skin) - EENT ENT: poor dentition - Respiratory Respiratory: bilateral: CTA - Cardiovascular Rhythm: regular - Extremities Extremities: pulses intact, pulses symmetrical, No edema - Abdominal General gastrointestinal: soft, non-tender, non-distended - Integumentary Integumentary: Present: decreased turgor - Neurologic Neurologic: moves all extremities - Allied Health Allied health notes reviewed: nursing HEART Score - HEART Score Troponin: Troponin T 0.014 ng/mL (0.00-0.029) 04/28/21 21:19 Results - Labs CBC & Chem 7: 05/02/21 08:50 05/02/21 08:50 Labs: Laboratory Last Values WBC 4.2 K/mm3 (4.5-11.0) L 05/02/21 08:50 RBC 5.09 M/mm3 (3.65-5.03) H 05/02/21 08:50 Hgb 14.0 gm/dl (11.8-15.2) 05/02/21 08:50 Hct 42.8 % (35.5-45.6) 05/02/21 08:50 MCV 84 fl (84-94) 05/02/21 08:50 MCH 28 pg (28-32) 05/02/21 08:50 MCHC 33 % (32-34) 05/02/21 08:50 RDW 15.6 % (13.2-15.2) H 05/02/21 08:50 Plt Count 100 K/mm3 (140-440) L 05/02/21 08:50 Lymph % (Auto) 21.9 % (13.4-35.0) 04/30/21 04:13 [place] % (Auto) 6.5 % (0.0-7.3) 04/30/21 04:13 Eos % (Auto) 0.1 % (0.0-4.3) 04/30/21 04:13 Baso % (Auto) 0.3 % (0.0-1.8) 04/30/21 04:13 Lymph # (Auto) 1.1 K/mm3 (1.2-5.4) L 04/30/21 04:13 [place] # (Auto) 0.3 K/mm3 (0.0-0.8) 04/30/21 04:13 Eos # (Auto) 0.0 K/mm3 (0.0-0.4) 04/30/21 04:13 Baso # (Auto) 0.0 K/mm3 (0.0-0.1) 04/30/21 04:13 Seg Neutrophils % 71.2 % (40.0-70.0) H 04/30/21 04:13 Seg Neutrophils # 3.7 K/mm3 (1.8-7.7) 04/30/21 04:13 PT 13.1 Sec. (12.2-14.9) 04/28/21 21:19 INR 0.93 (0.87-1.13) 04/28/21 21:19 APTT 32.0 Sec. (24.2-36.6) 04/28/21 21:19 Sodium 134 mmol/L (137-145) L 05/02/21 08:50 Potassium 4.2 mmol/L (3.6-5.0) 05/02/21 08:50 Chloride 102.3 mmol/L (98-107) 05/02/21 08:50 Carbon Dioxide 23 mmol/L (22-30) 05/02/21 08:50 Anion Gap 13 mmol/L 05/02/21 08:50 BUN 30 mg/dL (9-20) H 05/02/21 08:50 Creatinine 1.1 mg/dL (0.8-1.3) 05/02/21 08:50 Estimated GFR > 60 ml/min 05/02/21 08:50 BUN/Creatinine Ratio 27 % 05/02/21 08:50 Glucose 98 mg/dL (75-100) 05/02/21 08:50 Lactic Acid 1.40 mmol/L (0.7-2.0) 04/28/21 21:19 Calcium 8.7 mg/dL (8.4-10.2) 05/02/21 08:50 Total Bilirubin 0.40 mg/dL (0.1-1.2) 04/28/21 21:19 AST 36 units/L (5-40) 04/28/21 21:19 ALT 16 units/L (7-56) 04/28/21 21:19 Alkaline Phosphatase 53 units/L (35-129) 04/28/21 21:19 Ammonia 21.0 umol/L (25-60) L 04/28/21 21:19 Total Creatine Kinase 215 units/L (55-170) H 04/28/21 21:19 Troponin T 0.014 ng/mL (0.00-0.029) 04/28/21 21:19 Total Protein 8.0 g/dL (6.3-8.2) 04/28/21 21:19 Albumin 4.2 g/dL (3.9-5) 04/28/21 21:19 Albumin/Globulin Ratio 1.1 % 04/28/21 21:19 TSH 12.780 mlU/mL (0.270-4.200) H 04/28/21 21:19 Urine Color [place]isa (Yellow) 04/29/21 03:47 Urine Turbidity Cloudy (Clear) 04/29/21 03:47 Urine pH 6.0 (5.0-7.0) 04/29/21 03:47 Ur Specific [place] 1.015 (1.003-1.030) 04/29/21 03:47 Urine Protein >500 mg/dL (Negative) 04/29/21 03:47 Urine Glucose (UA) Neg mg/dL (Negative) 04/29/21 03:47 Urine Ketones Neg mg/dL (Negative) 04/29/21 03:47 Urine Blood Lg (Negative) 04/29/21 03:47 Urine Nitrite Neg (Negative) 04/29/21 03:47 Urine Bilirubin Neg (Negative) 04/29/21 03:47 Urine Urobilinogen < 2.0 mg/dL (<2.0) 04/29/21 03:47 Ur Leukocyte Esterase Lg (Negative) 04/29/21 03:47 Urine WBC (Auto) 176.0 /HPF (0.0-6.0) H 04/29/21 03:47 Urine RBC (Auto) > 182.0 /HPF (0.0-6.0) 04/29/21 03:47 U Epithel Cells (Auto) < 1.0 /HPF (0-13.0) 04/29/21 03:47 Urine Bacteria (Auto) 2+ /HPF (Negative) 04/29/21 03:47 Urine WBC Clumps 2+ /HPF 04/29/21 03:47 Urine Mucus Few /HPF 04/29/21 03:47 Salicylates < 0.3 mg/dL (2.8-20.0) L 04/28/21 21:19 Acetaminophen 5.0 ug/mL (10.0-30.0) L 04/28/21 21:19 Plasma/Serum Alcohol < 0.01 % (0-0.07) 04/28/21 21:19 Blood Type A POSITIVE 04/28/21 21:19 Antibody Screen Negative 04/28/21 21:19 Microbiology: Microbiology 04/28/21 21:19 Peripheral/Venous Blood Culture - Preliminary NO GROWTH AFTER 72 HOURS 04/28/21 21:30 Peripheral/Venous Blood Culture - Preliminary NO GROWTH AFTER 72 HOURS Mac/IV: Voiding Method Indwelling Catheter Active Medications - Current Medications Current Medications: Generic Name Dose Route Start Last Admin Trade Name Freq PRN Reason Stop Dose Admin Acetaminophen 650 mg 04/29/21 05:28 Acetaminophen 325 Mg Tab PO Q4H PRN Pain MILD(1-3)/Fever >100.5/COLLIER Albuterol 2.5 mg 04/29/21 05:28 Albuterol 2.5 Mg/3 Ml Nebu IH Q4HRT PRN Shortness Of Breath Famotidine 10 mg 04/29/21 10:00 05/01/21 22:44 Famotidine 20 Mg/2 Ml Inj IV 10 mg BID PURNIMA Administration Heparin Sodium (Porcine) 5,000 unit 04/29/21 06:00 05/02/21 07:51 Heparin 5,000 Unit/1 Ml Vial SUB-Q 5,000 unit Q8HR PURNIMA Administration Hydromorphone HCl 0.5 mg 04/29/21 05:28 Hydromorphone 1 Mg/1 Ml Inj IV Q3H PRN Pain , Severe (7-10) Sodium Chloride 1,000 mls @ 100 mls/hr 04/29/21 06:00 05/02/21 07:52 Nacl 0.45% 1000 Ml IV 100 mls/hr DIRECT PURNIMA Administration Levofloxacin/Dextrose 250 mg in 50 mls @ 50 mls/hr 05/02/21 10:00 Levaquin 250mg/50ml IV 05/06/21 10:59 Q24H PURNIMA Protocol Labetalol HCl 10 mg 05/01/21 11:00 Labetalol 20 Mg/4 Ml Inj IV Q4HR PRN sbp >160, hold for HR <70 Ondansetron HCl 4 mg 04/29/21 05:28 Ondansetron 4 Mg/2 Ml Inj IV Q8H PRN Nausea And Vomiting Oxycodone/Acetaminophen 1 tab 04/29/21 05:28 Oxycodone /Acetaminophen 5-325mg Tab PO Q6H PRN Pain, Moderate (4-6) Sodium Chloride 10 ml 04/29/21 10:00 05/01/21 22:45 Sodium Chloride 0.9% 10 Ml Flush Syringe IV 10 ml BID PURNIMA Administration Sodium Chloride 10 ml 04/29/21 05:28 Sodium Chloride 0.9% 10 Ml Flush Syringe IV PRN PRN LINE FLUSH
[2021-05-03] MEDS: HEPARIN 5,000 UNIT/1 ML VIAL SUB-Q SCH ×4 (07:12→23:04)
[2021-05-03 09:15] LABS: Hematocrit 42.9 % (35.5-45.6); Hemoglobin 14.1 gm/dl (11.8-15.2); Mean Corpuscular HGB Conc 33 % (32-34); Mean Corpuscular Volume 83 fl (84-94); Platelet Count 128 K/mm3 (140-440); Red Blood Count 5.15 M/mm3 (3.65-5.03); Red Cell Distribution Width 15.4 % (13.2-15.2)
[2021-05-03 09:21] LABS: Calcium 8.6 mg/dL (8.4-10.2)
[2021-05-03] MEDS: FAMOTIDINE 20 MG/2 ML INJ IV SCH ×2 (11:39→23:03)
[2021-05-03 16:13] LABS: C-Reactive Protein 3.4 mg/dL (0.00-1.30)
--- NOTE | 2021-05-03 17:58 | Progress Note ---
Assessment and Plan Assessment and plan: Patient is 86-year-old male who presented with altered mental status after being found by a neighbor. Subsequently found to have UTI has had some improvement in mental status with treatment. Found to be COVID positive. Currently awaiting placement to SNF. #Acute metabolic encephalopathy -CT head negative on admission -Likely secondary to UTI, unclear patient has underlying dementia -Not responsive to commands -Continue to treat UTI #COVID-19 infection -D-dimer 825.7, CRP 3.4, ferritin 797, LDH 250 -Isolation precautions -Continuous pulse ox -We will continue to monitor for changes in respiratory status #UTI -Urine culture positive for E. coli sensitive to Levaquin -We will continue Levaquin for 7 days total -Blood culture negative x72 hours #DONTA -Creatinine bumped from 1.1 to 1.6 -patient appears to be volume depleted, will trial IVFs #Skin cancer -Multiple lesions across body most prominent on the head -Will need outpatient follow-up with dermatology #DVT prophylaxis -Continue subcutaneous heparin Total Time Spent with Patient (Minutes): 30 minutes History Interval history: Patient febrile to 100.6. Found to be Covid positive. Patient still confused. Hospitalist Physical - Physical exam Narrative exam: GENERAL: Malnourished elderly male, sleeping in no acute distress. HEENT: Edentulous. CHEST/LUNGS: CTAB on room air HEART/CARDIOVASCULAR: RRR. No murmur, rubs or gallops appreciated. ABDOMEN: +BS. NT/ND. SKIN: Multiple waxy colored nodules and necrotic plaques on head and upper extremities. NEURO: Unable to assess. Patient would not awake during exam. EXTREMITIES: No cyanosis, cubbing or edema. PSYCH: Unable to assess. - Constitutional Vitals: Temp Pulse Resp BP Pulse Ox 98.1 F 82 20 153/90 97 05/03/21 12:24 05/03/21 12:24 05/03/21 15:20 05/03/21 12:24 05/03/21 15:20 General appearance: Present: no acute distress, well-nourished, cachectic, disheveled, other (multiple skin lesions ranging from necrotic plaques to nodules on the skin) HEART Score - HEART Score Troponin: Troponin T 0.014 ng/mL (0.00-0.029) 04/28/21 21:19 Results - Labs CBC & Chem 7: 05/03/21 08:31 05/03/21 15:37 Labs: Laboratory Last Values WBC 6.3 K/mm3 (4.5-11.0) 05/03/21 08:31 RBC 5.15 M/mm3 (3.65-5.03) H 05/03/21 08:31 Hgb 14.1 gm/dl (11.8-15.2) 05/03/21 08:31 Hct 42.9 % (35.5-45.6) 05/03/21 08:31 MCV 83 fl (84-94) L 05/03/21 08:31 MCH 27 pg (28-32) L 05/03/21 08:31 MCHC 33 % (32-34) 05/03/21 08:31 RDW 15.4 % (13.2-15.2) H 05/03/21 08:31 Plt Count 128 K/mm3 (140-440) L 05/03/21 08:31 Lymph % (Auto) 21.9 % (13.4-35.0) 04/30/21 04:13 [place] % (Auto) 6.5 % (0.0-7.3) 04/30/21 04:13 Eos % (Auto) 0.1 % (0.0-4.3) 04/30/21 04:13 Baso % (Auto) 0.3 % (0.0-1.8) 04/30/21 04:13 Lymph # (Auto) 1.1 K/mm3 (1.2-5.4) L 04/30/21 04:13 [place] # (Auto) 0.3 K/mm3 (0.0-0.8) 04/30/21 04:13 Eos # (Auto) 0.0 K/mm3 (0.0-0.4) 04/30/21 04:13 Baso # (Auto) 0.0 K/mm3 (0.0-0.1) 04/30/21 04:13 Seg Neutrophils % 71.2 % (40.0-70.0) H 04/30/21 04:13 Seg Neutrophils # 3.7 K/mm3 (1.8-7.7) 04/30/21 04:13 PT 13.1 Sec. (12.2-14.9) 04/28/21 21:19 INR 0.93 (0.87-1.13) 04/28/21 21:19 APTT 32.0 Sec. (24.2-36.6) 04/28/21 21:19 D-Dimer 825.75 ng/mlDDU (0-234) H 05/03/21 15:37 Sodium 136 mmol/L (137-145) L 05/03/21 08:31 Potassium 4.4 mmol/L (3.6-5.0) 05/03/21 08:31 Chloride 103.1 mmol/L (98-107) 05/03/21 08:31 Carbon Dioxide 20 mmol/L (22-30) L 05/03/21 08:31 Anion Gap 17 mmol/L 05/03/21 08:31 BUN 43 mg/dL (9-20) H 05/03/21 08:31 Creatinine 1.6 mg/dL (0.8-1.3) H 05/03/21 08:31 Estimated GFR 41 ml/min 05/03/21 08:31 BUN/Creatinine Ratio 27 % 05/03/21 08:31 Glucose 104 mg/dL (75-100) H 05/03/21 15:37 POC Glucose 88 mg/dL (70-105) 05/03/21 17:05 Lactic Acid 1.40 mmol/L (0.7-2.0) 04/28/21 21:19 Calcium 8.6 mg/dL (8.4-10.2) 05/03/21 08:31 Ferritin 797.9 ng/mL (30.0-300.0) H 05/03/21 15:37 Total Bilirubin 0.40 mg/dL (0.1-1.2) 04/28/21 21:19 AST 36 units/L (5-40) 04/28/21 21:19 ALT 16 units/L (7-56) 04/28/21 21:19 Alkaline Phosphatase 53 units/L (35-129) 04/28/21 21:19 Ammonia 21.0 umol/L (25-60) L 04/28/21 21:19 Lactate Dehydrogenase 350 units/L (91-180) H 05/03/21 15:37 Total Creatine Kinase 215 units/L (55-170) H 04/28/21 21:19 Troponin T 0.014 ng/mL (0.00-0.029) 04/28/21 21:19 C-Reactive Protein 3.40 mg/dL (0.00-1.30) H 05/03/21 15:37 Total Protein 8.0 g/dL (6.3-8.2) 04/28/21 21:19 Albumin 4.2 g/dL (3.9-5) 04/28/21 21:19 Albumin/Globulin Ratio 1.1 % 04/28/21 21:19 TSH 12.780 mlU/mL (0.270-4.200) H 04/28/21 21:19 Urine Color [place]isa (Yellow) 04/29/21 03:47 Urine Turbidity Cloudy (Clear) 04/29/21 03:47 Urine pH 6.0 (5.0-7.0) 04/29/21 03:47 Ur Specific [place] 1.015 (1.003-1.030) 04/29/21 03:47 Urine Protein >500 mg/dL (Negative) 04/29/21 03:47 Urine Glucose (UA) Neg mg/dL (Negative) 04/29/21 03:47 Urine Ketones Neg mg/dL (Negative) 04/29/21 03:47 Urine Blood Lg (Negative) 04/29/21 03:47 Urine Nitrite Neg (Negative) 04/29/21 03:47 Urine Bilirubin Neg (Negative) 04/29/21 03:47 Urine Urobilinogen < 2.0 mg/dL (<2.0) 04/29/21 03:47 Ur Leukocyte Esterase Lg (Negative) 04/29/21 03:47 Urine WBC (Auto) 176.0 /HPF (0.0-6.0) H 04/29/21 03:47 Urine RBC (Auto) > 182.0 /HPF (0.0-6.0) 04/29/21 03:47 U Epithel Cells (Auto) < 1.0 /HPF (0-13.0) 04/29/21 03:47 Urine Bacteria (Auto) 2+ /HPF (Negative) 04/29/21 03:47 Urine WBC Clumps 2+ /HPF 04/29/21 03:47 Urine Mucus Few /HPF 04/29/21 03:47 Salicylates < 0.3 mg/dL (2.8-20.0) L 04/28/21 21:19 Acetaminophen 5.0 ug/mL (10.0-30.0) L 04/28/21 21:19 Plasma/Serum Alcohol < 0.01 % (0-0.07) 04/28/21 21:19 Coronavirus (PCR) Positive (Negative) A 05/01/21 Unknown Blood Type A POSITIVE 04/28/21 21:19 Antibody Screen Negative 04/28/21 21:19 Microbiology: Microbiology 04/28/21 21:19 Peripheral/Venous Blood Culture - Preliminary NO GROWTH AFTER 4 DAYS 04/28/21 21:30 Peripheral/Venous Blood Culture - Preliminary NO GROWTH AFTER 4 DAYS Mac/IV: Voiding Method Indwelling Catheter Active Medications - Current Medications Current Medications: Generic Name Dose Route Start Last Admin Trade Name Freq PRN Reason Stop Dose Admin Acetaminophen 650 mg 04/29/21 05:28 Acetaminophen 325 Mg Tab PO Q4H PRN Pain MILD(1-3)/Fever >100.5/COLLIER Albuterol 2.5 mg 04/29/21 05:28 Albuterol 2.5 Mg/3 Ml Nebu IH Q4HRT PRN Shortness Of Breath Famotidine 10 mg 04/29/21 10:00 05/03/21 11:39 Famotidine 20 Mg/2 Ml Inj IV 10 mg BID PURNIMA Administration Heparin Sodium (Porcine) 5,000 unit 04/29/21 06:00 05/03/21 16:24 Heparin 5,000 Unit/1 Ml Vial SUB-Q 5,000 unit Q8HR PURNIMA Administration Hydromorphone HCl 0.5 mg 04/29/21 05:28 Hydromorphone 1 Mg/1 Ml Inj IV Q3H PRN Pain , Severe (7-10) Sodium Chloride 1,000 mls @ 100 mls/hr 04/29/21 06:00 05/02/21 07:52 Nacl 0.45% 1000 Ml IV 100 mls/hr DIRECT PURNIMA Administration Levofloxacin/Dextrose 250 mg in 50 mls @ 50 mls/hr 05/02/21 10:00 05/03/21 11:39 Levaquin 250mg/50ml IV 05/06/21 10:59 50 mls/hr Q24H PURNIMA Administration Protocol Labetalol HCl 10 mg 05/01/21 11:00 Labetalol 20 Mg/4 Ml Inj IV Q4HR PRN sbp >160, hold for HR <70 Ondansetron HCl 4 mg 04/29/21 05:28 Ondansetron 4 Mg/2 Ml Inj IV Q8H PRN Nausea And Vomiting Oxycodone/Acetaminophen 1 tab 04/29/21 05:28 Oxycodone /Acetaminophen 5-325mg Tab PO Q6H PRN Pain, Moderate (4-6) Sodium Chloride 10 ml 04/29/21 10:00 05/03/21 11:39 Sodium Chloride 0.9% 10 Ml Flush Syringe IV 10 ml BID PURNIMA Administration Sodium Chloride 10 ml 04/29/21 05:28 Sodium Chloride 0.9% 10 Ml Flush Syringe IV PRN PRN LINE FLUSH
--- NOTE | 2021-05-03 18:24 | Event Note ---
Date: 05/03/21 I spoke with the Mr. France's grandson and daughter (Willie Powers and Rebecca rFance) today briefly, to update them on his current condition. He was evaluated by speech therapy with recommendations for PEG tube. We discussed the benefits and risk of PEG tube. Given his mental status, I did not recommend PEG tube insertion at this time. We also discussed his code status. They want to continue to Full Code status and will meet as a family for further discussion. I will touch base with the family tomorrow for updates.
[2021-05-03] MEDS: LACTATED RINGERS 1,000 ML IV SCH (23:03)
[2021-05-04] MEDS: HEPARIN 5,000 UNIT/1 ML VIAL SUB-Q SCH (05:14)
--- NOTE | 2021-05-04 10:27 | XRay Report ---
CHEST 1 VIEW 05/04/2021 9:20 AM INDICATION / CLINICAL INFORMATION: Respiratory failure. COMPARISON: 04/28/2021 FINDINGS: SUPPORT DEVICES: None. HEART / MEDIASTINUM: Stable. LUNGS / PLEURA: Mild bibasilar atelectasis. No pneumothorax. ADDITIONAL FINDINGS: No significant additional findings. IMPRESSION: 1. No acute findings. Signer Name: Popeye Betts MD Signed: 05/04/2021 10:22 AM Workstation Name: [id number]
[2021-05-04] MEDS: dexAMETHasone 4 MG/ML VIAL IV SCH (10:42)
[2021-05-04] MEDS: FAMOTIDINE 20 MG/2 ML INJ IV SCH ×2 (10:42→23:00)
[2021-05-04 11:05] LABS: Albumin 2.9 g/dL (3.9-5); Calcium 8.7 mg/dL (8.4-10.2)
--- NOTE | 2021-05-04 11:54 | Progress Note ---
Assessment and Plan Assessment and plan: Patient is 86-year-old male who presented with altered mental status after being found by a neighbor. Subsequently found to have UTI has had some improvement in mental status with treatment. Found to be COVID positive. Now requiring supplemental oxygen, steroids started. #Acute metabolic encephalopathy -CT head negative on admission -Likely secondary to UTI, unclear patient has underlying dementia -Not responsive to commands -Continue to treat UTI #Acute hypoxic respiratory failure -O2 saturations dropped to 89% on room air -Started supplemental O2, continue continuous pulse ox -Started dexamethasone IV x10 days #COVID-19 infection -D-dimer 825.7, CRP 3.4, ferritin 797, LDH 250 -Isolation precautions -Continuous pulse ox -We will continue to monitor for changes in respiratory status -Covid vitamins on hold pending NG tube placement #UTI -Urine culture positive for E. coli sensitive to Levaquin -We will continue Levaquin for 7 days total -Blood culture negative x72 hours #DONTA -Creatinine 1.4 today -Continue IV hydration #Skin cancer -Multiple lesions across body most prominent on the head -Will need outpatient follow-up with dermatology #DVT prophylaxis -started prophylactic lovenox due to new respiratory status Total Time Spent with Patient (Minutes): 30 minutes History Interval history: Patient febrile to 100.4. Still unable to be aroused. Patient resting on 3LNC. Hospitalist Physical - Physical exam Narrative exam: GENERAL: Malnourished elderly male, sleeping in no acute distress. HEENT: NC in place. Edentulous. CHEST/LUNGS: CTAB. HEART/CARDIOVASCULAR: RRR. No murmur, rubs or gallops appreciated. ABDOMEN: +BS. NT/ND. SKIN: Multiple waxy colored nodules and necrotic plaques on head and upper extremities. NEURO: Unable to assess. Patient would not awake during exam. EXTREMITIES: No cyanosis, cubbing or edema. PSYCH: Unable to assess. - Constitutional Vitals: Temp Pulse Resp BP Pulse Ox 100.4 F H 45 L 22 162/84 89 05/04/21 05:55 05/04/21 05:55 05/04/21 05:55 05/04/21 05:55 05/04/21 05:55 General appearance: Present: no acute distress, well-nourished, cachectic, disheveled, other (multiple skin lesions ranging from necrotic plaques to nodules on the skin) HEART Score - HEART Score Troponin: Troponin T 0.014 ng/mL (0.00-0.029) 04/28/21 21:19 Results - Labs CBC & Chem 7: 05/03/21 08:31 05/04/21 10:00 Labs: Laboratory Last Values WBC 6.3 K/mm3 (4.5-11.0) 05/03/21 08:31 RBC 5.15 M/mm3 (3.65-5.03) H 05/03/21 08:31 Hgb 14.1 gm/dl (11.8-15.2) 05/03/21 08:31 Hct 42.9 % (35.5-45.6) 05/03/21 08:31 MCV 83 fl (84-94) L 05/03/21 08:31 MCH 27 pg (28-32) L 05/03/21 08:31 MCHC 33 % (32-34) 05/03/21 08:31 RDW 15.4 % (13.2-15.2) H 05/03/21 08:31 Plt Count 128 K/mm3 (140-440) L 05/03/21 08:31 Lymph % (Auto) 21.9 % (13.4-35.0) 04/30/21 04:13 [place] % (Auto) 6.5 % (0.0-7.3) 04/30/21 04:13 Eos % (Auto) 0.1 % (0.0-4.3) 04/30/21 04:13 Baso % (Auto) 0.3 % (0.0-1.8) 04/30/21 04:13 Lymph # (Auto) 1.1 K/mm3 (1.2-5.4) L 04/30/21 04:13 [place] # (Auto) 0.3 K/mm3 (0.0-0.8) 04/30/21 04:13 Eos # (Auto) 0.0 K/mm3 (0.0-0.4) 04/30/21 04:13 Baso # (Auto) 0.0 K/mm3 (0.0-0.1) 04/30/21 04:13 Seg Neutrophils % 71.2 % (40.0-70.0) H 04/30/21 04:13 Seg Neutrophils # 3.7 K/mm3 (1.8-7.7) 04/30/21 04:13 PT 13.1 Sec. (12.2-14.9) 04/28/21 21:19 INR 0.93 (0.87-1.13) 04/28/21 21:19 APTT 32.0 Sec. (24.2-36.6) 04/28/21 21:19 D-Dimer 825.75 ng/mlDDU (0-234) H 05/03/21 15:37 Sodium 137 mmol/L (137-145) 05/04/21 10:00 Potassium 4.5 mmol/L (3.6-5.0) 05/04/21 10:00 Chloride 105.6 mmol/L (98-107) 05/04/21 10:00 Carbon Dioxide 18 mmol/L (22-30) L 05/04/21 10:00 Anion Gap 18 mmol/L 05/04/21 10:00 BUN 47 mg/dL (9-20) H 05/04/21 10:00 Creatinine 1.4 mg/dL (0.8-1.3) H 05/04/21 10:00 Estimated GFR 48 ml/min 05/04/21 10:00 BUN/Creatinine Ratio 34 % 05/04/21 10:00 Glucose 105 mg/dL (75-100) H 05/04/21 10:00 POC Glucose 88 mg/dL (70-105) 05/03/21 17:05 Lactic Acid 1.40 mmol/L (0.7-2.0) 04/28/21 21:19 Calcium 8.7 mg/dL (8.4-10.2) 05/04/21 10:00 Ferritin 797.9 ng/mL (30.0-300.0) H 05/03/21 15:37 Total Bilirubin 0.50 mg/dL (0.1-1.2) 05/04/21 10:00 AST 36 units/L (5-40) 05/04/21 10:00 ALT 13 units/L (7-56) 05/04/21 10:00 Alkaline Phosphatase 46 units/L (35-129) 05/04/21 10:00 Ammonia 21.0 umol/L (25-60) L 04/28/21 21:19 Lactate Dehydrogenase 350 units/L (91-180) H 05/03/21 15:37 Total Creatine Kinase 215 units/L (55-170) H 04/28/21 21:19 Troponin T 0.014 ng/mL (0.00-0.029) 04/28/21 21:19 C-Reactive Protein 3.40 mg/dL (0.00-1.30) H 05/03/21 15:37 Total Protein 6.6 g/dL (6.3-8.2) 05/04/21 10:00 Albumin 2.9 g/dL (3.9-5) L 05/04/21 10:00 Albumin/Globulin Ratio 0.8 % 05/04/21 10:00 TSH 12.780 mlU/mL (0.270-4.200) H 04/28/21 21:19 Urine Color Elisa (Yellow) 04/29/21 03:47 Urine Turbidity Cloudy (Clear) 04/29/21 03:47 Urine pH 6.0 (5.0-7.0) 04/29/21 03:47 Ur Specific [place] 1.015 (1.003-1.030) 04/29/21 03:47 Urine Protein >500 mg/dL (Negative) 04/29/21 03:47 Urine Glucose (UA) Neg mg/dL (Negative) 04/29/21 03:47 Urine Ketones Neg mg/dL (Negative) 04/29/21 03:47 Urine Blood Lg (Negative) 04/29/21 03:47 Urine Nitrite Neg (Negative) 04/29/21 03:47 Urine Bilirubin Neg (Negative) 04/29/21 03:47 Urine Urobilinogen < 2.0 mg/dL (<2.0) 04/29/21 03:47 Ur Leukocyte Esterase Lg (Negative) 04/29/21 03:47 Urine WBC (Auto) 176.0 /HPF (0.0-6.0) H 04/29/21 03:47 Urine RBC (Auto) > 182.0 /HPF (0.0-6.0) 04/29/21 03:47 U Epithel Cells (Auto) < 1.0 /HPF (0-13.0) 04/29/21 03:47 Urine Bacteria (Auto) 2+ /HPF (Negative) 04/29/21 03:47 Urine WBC Clumps 2+ /HPF 04/29/21 03:47 Urine Mucus Few /HPF 04/29/21 03:47 Salicylates < 0.3 mg/dL (2.8-20.0) L 04/28/21 21:19 Acetaminophen 5.0 ug/mL (10.0-30.0) L 04/28/21 21:19 Plasma/Serum Alcohol < 0.01 % (0-0.07) 04/28/21 21:19 Coronavirus (PCR) Positive (Negative) A 05/01/21 Unknown Blood Type A POSITIVE 04/28/21 21:19 Antibody Screen Negative 04/28/21 21:19 Microbiology: Microbiology 04/28/21 21:19 Peripheral/Venous Blood Culture - Preliminary NO GROWTH AFTER 4 DAYS 04/28/21 21:30 Peripheral/Venous Blood Culture - Preliminary NO GROWTH AFTER 4 DAYS Mac/IV: Voiding Method Indwelling Catheter Active Medications - Current Medications Current Medications: Generic Name Dose Route Start Last Admin Trade Name Freq PRN Reason Stop Dose Admin Acetaminophen 650 mg 04/29/21 05:28 05/04/21 06:16 Acetaminophen 325 Mg Tab PO 650 mg Q4H PRN Administration Pain MILD(1-3)/Fever >100.5/COLLIER Albuterol 2.5 mg 04/29/21 05:28 Albuterol 2.5 Mg/3 Ml Nebu IH Q4HRT PRN Shortness Of Breath Dexamethasone 6 mg 05/04/21 10:00 05/04/21 10:42 Dexamethasone 4 Mg/Ml Vial IV 05/13/21 10:01 6 mg QDAY PURNIMA Administration Enoxaparin Sodium 40 mg 05/04/21 22:00 Enoxaparin 40 Mg/0.4 Ml Inj SUB-Q QDAY@2200 [facility] Protocol Famotidine 10 mg 04/29/21 10:00 05/04/21 10:42 Famotidine 20 Mg/2 Ml Inj IV 10 mg BID PURNIMA Administration Hydromorphone HCl 0.5 mg 04/29/21 05:28 Hydromorphone 1 Mg/1 Ml Inj IV Q3H PRN Pain , Severe (7-10) Levofloxacin/Dextrose 250 mg in 50 mls @ 50 mls/hr 05/02/21 10:00 05/03/21 22:44 Levaquin 250mg/50ml IV 05/06/21 10:59 Infused Q24H PURNIMA Infusion Protocol Lactated Ringer's 1,000 mls @ 75 mls/hr 05/03/21 18:15 05/03/21 23:03 Lactated Ringers IV 75 mls/hr DIRECT PURNIMA Administration Labetalol HCl 10 mg 05/01/21 11:00 Labetalol 20 Mg/4 Ml Inj IV Q4HR PRN sbp >160, hold for HR <70 Ondansetron HCl 4 mg 04/29/21 05:28 Ondansetron 4 Mg/2 Ml Inj IV Q8H PRN Nausea And Vomiting Oxycodone/Acetaminophen 1 tab 04/29/21 05:28 05/04/21 06:20 Oxycodone /Acetaminophen 5-325mg Tab PO 1 tab Q6H PRN Administration Pain, Moderate (4-6) Sodium Chloride 10 ml 04/29/21 10:00 05/04/21 10:42 Sodium Chloride 0.9% 10 Ml Flush Syringe IV 10 ml BID PURNIMA Administration Sodium Chloride 10 ml 04/29/21 05:28 Sodium Chloride 0.9% 10 Ml Flush Syringe IV PRN PRN LINE FLUSH
--- NOTE | 2021-05-04 14:56 | Consultation ---
History of Present Illness Consult date: 05/04/21 Requesting physician: MARV MORGAN History of present illness: PULMONARY/CCM CONSULT NOTE (Full dictation # [id number]) Please see dictated notes for full details Past History Past Medical History: other (Urinary retention, skin cancer) Medications and Allergies Allergies Allergy/AdvReac Type Severity Reaction Status Date / Time Penicillins AdvReac Unknown Unverified 05/11/16 10:20 Home Medications Medication Instructions Recorded Confirmed Last Taken Type HYDROcodone/ACETAMINOPHEN 1 each PO BID 05/03/21 05/03/21 04/29/21 History [Hydrocodone-Acetamin 7.5-300] clonazePAM [Klonopin] 1 mg PO BID 05/03/21 05/03/21 04/29/21 History Active Meds: Active Medications Acetaminophen (Acetaminophen 325 Mg Tab) 650 mg PO Q4H PRN PRN Reason: Pain MILD(1-3)/Fever >100.5/COLLIER Last Admin: 05/04/21 06:16 Dose: 650 mg Documented by: Albuterol (Albuterol 2.5 Mg/3 Ml Nebu) 2.5 mg IH Q4HRT PRN PRN Reason: Shortness Of Breath Dexamethasone (Dexamethasone 4 Mg/Ml Vial) 6 mg IV QDAY PURNIMA Stop: 05/13/21 10:01 Last Admin: 05/04/21 10:42 Dose: 6 mg Documented by: Enoxaparin Sodium (Enoxaparin 40 Mg/0.4 Ml Inj) 40 mg SUB-Q QDAY@2200 PURNIMA; Protocol Famotidine (Famotidine 20 Mg/2 Ml Inj) 10 mg IV BID PURNIMA Last Admin: 05/04/21 10:42 Dose: 10 mg Documented by: Hydromorphone HCl (Hydromorphone 1 Mg/1 Ml Inj) 0.5 mg IV Q3H PRN PRN Reason: Pain , Severe (7-10) Levofloxacin/Dextrose (Levaquin 250mg/50ml) 250 mg in 50 mls @ 50 mls/hr IV Q24 H PURNIMA; Protocol Stop: 05/06/21 10:59 Last Admin: 05/04/21 11:00 Dose: 50 mls/hr Documented by: Lactated Ringer's (Lactated Ringers) 1,000 mls @ 75 mls/hr IV DIRECT PURNIMA Last Admin: 05/03/21 23:03 Dose: 75 mls/hr Documented by: Labetalol HCl (Labetalol 20 Mg/4 Ml Inj) 10 mg IV Q4HR PRN PRN Reason: sbp >160, hold for HR <70 Ondansetron HCl (Ondansetron 4 Mg/2 Ml Inj) 4 mg IV Q8H PRN PRN Reason: Nausea And Vomiting Sodium Chloride (Sodium Chloride 0.9% 10 Ml Flush Syringe) 10 ml IV BID [facility] Last Admin: 05/04/21 10:42 Dose: 10 ml Documented by: Sodium Chloride (Sodium Chloride 0.9% 10 Ml Flush Syringe) 10 ml IV PRN PRN PRN Reason: LINE FLUSH Physical Examination Vital signs: Vital Signs Temp Pulse Resp BP Pulse Ox 98.2 F 81 14 169/93 96 04/29/21 00:40 04/29/21 00:40 04/29/21 00:40 04/29/21 00:40 04/29/21 00:40 Results - Laboratory Findings CBC and BMP: 05/03/21 08:31 05/04/21 10:00 PT/INR, D-dimer PT 13.1 Sec. (12.2-14.9) 04/28/21 21:19 INR 0.93 (0.87-1.13) 04/28/21 21:19 D-Dimer 825.75 ng/mlDDU (0-234) H 05/03/21 15:37 Abnormal lab findings: Abnormal Labs 04/28/21 04/28/21 04/28/21 21:19 21:19 21:19 WBC RBC MCV MCH RDW 15.4 H Plt Count 126 L Lymph # (Auto) 0.8 L Seg Neutrophils % 77.8 H D-Dimer Sodium 133 L Chloride 97.3 L Carbon Dioxide 21 L BUN 34 H Creatinine 1.4 H Glucose 108 H Ferritin Ammonia 21.0 L Lactate Dehydrogenase Total Creatine Kinase 215 H C-Reactive Protein Albumin TSH Urine WBC (Auto) Salicylates Acetaminophen Coronavirus (PCR) 04/28/21 04/28/21 04/28/21 21:19 21:19 21:19 WBC RBC MCV MCH RDW Plt Count Lymph # (Auto) Seg Neutrophils % D-Dimer Sodium Chloride Carbon Dioxide BUN Creatinine Glucose Ferritin Ammonia Lactate Dehydrogenase Total Creatine Kinase C-Reactive Protein Albumin TSH 12.780 H Urine WBC (Auto) Salicylates < 0.3 L Acetaminophen 5.0 L Coronavirus (PCR) 04/29/21 04/30/21 04/30/21 03:47 04:13 04:13 WBC RBC MCV MCH RDW 15.8 H Plt Count 105 L Lymph # (Auto) 1.1 L Seg Neutrophils % 71.2 H D-Dimer Sodium 134 L Chloride Carbon Dioxide BUN 34 H Creatinine Glucose Ferritin Ammonia Lactate Dehydrogenase Total Creatine Kinase C-Reactive Protein Albumin TSH Urine WBC (Auto) 176.0 H Salicylates Acetaminophen Coronavirus (PCR) 05/01/21 05/02/21 05/02/21 Unknown 08:50 08:50 WBC 4.2 L RBC 5.09 H MCV MCH RDW 15.6 H Plt Count 100 L Lymph # (Auto) Seg Neutrophils % D-Dimer Sodium 134 L Chloride Carbon Dioxide BUN 30 H Creatinine Glucose Ferritin Ammonia Lactate Dehydrogenase Total Creatine Kinase C-Reactive Protein Albumin TSH Urine WBC (Auto) Salicylates Acetaminophen Coronavirus (PCR) Positive A 05/03/21 05/03/21 05/03/21 08:31 08:31 15:37 WBC RBC 5.15 H MCV 83 L MCH 27 L RDW 15.4 H Plt Count 128 L Lymph # (Auto) Seg Neutrophils % D-Dimer 825.75 H Sodium 136 L Chloride Carbon Dioxide 20 L BUN 43 H Creatinine 1.6 H Glucose 105 H Ferritin Ammonia Lactate Dehydrogenase Total Creatine Kinase C-Reactive Protein Albumin TSH Urine WBC (Auto) Salicylates Acetaminophen Coronavirus (PCR) 05/03/21 05/03/21 05/04/21 15:37 15:37 10:00 WBC RBC MCV MCH RDW Plt Count Lymph # (Auto) Seg Neutrophils % D-Dimer Sodium Chloride Carbon Dioxide 18 L BUN 47 H Creatinine 1.4 H Glucose 104 H 105 H Ferritin 797.9 H Ammonia Lactate Dehydrogenase 350 H Total Creatine Kinase C-Reactive Protein 3.40 H Albumin 2.9 L TSH Urine WBC (Auto) Salicylates Acetaminophen Coronavirus (PCR)
[2021-05-04] MEDS ORDERED: LEVOTHYROXINE 100 MCG INJ IV ONE (16:00)
--- NOTE | 2021-05-04 17:45 | Vascular Lab Report ---
DUPLEX DOPPLER LOWER EXTREMITY VEINS, BILATERAL INDICATION / CLINICAL INFORMATION: swelling. TECHNIQUE: Duplex doppler imaging was performed through the veins of both lower extremities using mayra ous compression and other maneuvers. COMPARISON: None available. FINDINGS: RIGHT COMMON FEMORAL VEIN: Negative. RIGHT FEMORAL VEIN: Negative. RIGHT POPLITEAL VEIN: Negative. RIGHT CALF VEINS: Negative. LEFT COMMON FEMORAL VEIN: Negative. LEFT FEMORAL VEIN: Negative. LEFT POPLITEAL VEIN: Negative. LEFT CALF VEINS: Negative. ADDITIONAL FINDINGS: None. IMPRESSION: 1. No sonographic evidence for DVT in either lower extremity. Signer Name: Stephen Yadav MD Signed: 05/04/2021 5:41 PM Workstation Name: [id number]
[2021-05-04] MEDS: LACTATED RINGERS 1,000 ML IV SCH (17:46)
--- NOTE | 2021-05-04 19:25 | XRay Report ---
CHEST 1 VIEW 05/04/2021 6:17 PM INDICATION / CLINICAL INFORMATION: tube placement. nurse shown xray and tube pulled. COMPARISON: None available. FINDINGS: SUPPORT DEVICES: Dobbhoff feeding tube tip in right lower lobe bronchus. HEART / MEDIASTINUM: No significant abnormality. LUNGS / PLEURA: No significant pulmonary or pleural abnormality. No pneumothorax. ADDITIONAL FINDINGS: No significant additional findings. IMPRESSION: 1. Dobbhoff feeding tube tip in right lower lobe bronchus. Technologist reports nurse notified and tu reginaimmediately pulled at bedside Signer Name: Jacobo Vazquez MD Signed: 05/04/2021 7:21 PM Workstation Name: [id number]
[2021-05-04] MEDS ORDERED: REMDESIVIR 200 MG in SODIUM CHLORIDE 0.9% 250ML 250 ML IV ONE (20:00)
[2021-05-04 21:18] LABS: Albumin 2.8 g/dL (3.9-5); Calcium 8.8 mg/dL (8.4-10.2)
[2021-05-04] MEDS: ENOXAPARIN 40 MG/0.4 ML INJ SUB-Q SCH (22:59)
[2021-05-04] MEDS: SODIUM CHLORIDE 0.9% 50 ML IVPB IV SCH (23:00)
[2021-05-04] MEDS: HYDROmorphone 1 MG/1 ML INJ IV PRN (23:08)
--- NOTE | 2021-05-05 02:29 | Consultation ---
DATE OF CONSULTATION: 05/04/2021 PULMONARY CONSULT NOTE CONSULTING PHYSICIAN: Dr. Donita Chapman. REASON FOR CONSULTATION: Acute hypoxemic respiratory failure. CHIEF COMPLAINT AND HISTORY OF PRESENT ILLNESS: The patient is a now 86-year-old male with past medical history significant for skin cancer and urinary retention, who was admitted a few days into the emergency room really with a diagnosis of altered mental status. His neighbor had apparently been checking on him at home from time to time. He had not been in seen a couple of days. He was found mumbling and incoherent. He did have an indwelling Mac catheter at that time and still has, that reportedly had been in for a while. The patient was denying any pain, any fevers or chills or any cough or any congestion in the emergency room, but was also described as a poor historian. A CT scan of the head was negative for an acute intracranial process. He was found to have a urinary tract infection, acute kidney injury, was admitted to the medical floor. Since he has been in the hospital, it looks like his oxygen levels have deteriorated and today I got a call from the attending mentioning that he was not requiring 100% nonrebreather mask to keep his O2 sats in the 90s. When I stopped by to see him, he was lethargic, was protecting his airway, was difficult to arouse, had nonlabored breathing, but was on a nonrebreather and really could not give me any history. The above is as much of the history of presentation as I have. PAST MEDICAL HISTORY: As far as I can tell, chronic urinary retention and skin cancer. PAST SURGICAL HISTORY: Unknown. MEDICATIONS: He was on at the time I stopped by to see him, according to the medication administration record included the following: Tylenol 650 mg p.o. q.4 hours p.r.n. mild pain or fevers, albuterol 2.5 mg nebulized q.4 hours p.r.n. shortness of breath, Decadron 6 mg IV daily, Lovenox 40 mg subQ daily, Pepcid 10 mg IV b.i.d., Dilaudid 0.5 mg IV q.3 hours p.r.n. severe pain, p.r.n. labetalol for elevated blood pressures, Levaquin 250 mg IV daily, Zofran 4 mg IV q.4 hours p.r.n. nausea and vomiting. ALLERGIES: PENICILLINS, nature of this allergy is unknown. DIET: Thin gentleman, bordering on cachectic, acute weight loss or gain history is unknown though. FAMILY AND SOCIAL HISTORY: Apparently lives in the community. It seems that he lives alone. Alcohol, tobacco or illicit drug abuse history are unknown. FAMILY HISTORY: Otherwise unknown. REVIEW OF SYSTEMS: Unobtainable secondary to the patient's medical and mental condition. Since he has been here, no gross hematochezia or melena, no gross hematuria, no hematemesis, no hemoptysis, no witnessed seizures. Review of systems otherwise unobtainable or as in body of history above. PHYSICAL EXAMINATION: VITAL SIGNS: On presentation in the emergency room, he was afebrile, temperature 98.2 degrees Fahrenheit, pulse of 81, respiratory rate of 14, blood pressure 169/93, O2 sats were 96%, inspired oxygen concentration at that time was not recorded. He has remained afebrile mostly through this admission. T-max of 100.6 degrees Fahrenheit. When I saw him, O2 sats were about 98% on 100% nonrebreather. GENERAL: He is an elderly and chronically ill looking male. Normocephalic, atraumatic. Resting in bed with mildly increased respiratory effort at rest. HEAD, EYES, EARS, NOSE AND THROAT: Anicteric. No conjunctival erythema. Oropharynx was dry. NECK: No gross jugular venous distention, no thyromegaly. Grossly, there were no palpable lymph nodes in the supraclavicular or submandibular lymph node chains. LUNGS: Auscultation of both lung love revealed faint bilateral rhonchi, diminished bilateral breath sounds, no active wheezing, crackles mostly in the bases. HEART: Sounds 1 and 2 are heard. There were regular rate and rhythm at the time of my evaluation without overt rubs or murmurs. ABDOMEN: Soft, flat, bowel sounds are positive, nontender, no palpable hepatosplenomegaly. EXTREMITIES: Without overt digital clubbing or cyanosis, no pedal edema. Pedal pulses are 2+ bilaterally. NEUROLOGIC: Pupils are equal, round, about 4 mm, reactive to light. Extraocular muscles and movements appeared intact. He had spontaneous movements to all extremities, appeared very weak. SKIN: Very poor turgor; however, without overt cellulitis or rash in the areas I examined, there were multiple lesions on the skin, presumably related to the skin cancer history. PSYCHIATRIC: Mood and affect could not be assessed. He was lethargic, but protecting his airway. He did not seem to have intact judgment and insight. LABORATORY DATA: From my review are as follows: Admission white cell count 4600, hemoglobin 14.1, hematocrit 42.2, platelet count 126. No manual differential. INR within normal limits. Serum sodium was 133 at admission, potassium 4.3, chloride 97, bicarbonate 21, BUN 34, creatinine 1.4, glucose was 108. Liver function test within normal limits. Ammonia within normal limits. TSH was significantly elevated 12.78. Urinalysis showed large leukocyte esterase with greater than 176 white cells per high power field. Aspirin, Tylenol and alcohol levels within normal limits. Coronavirus PCR test came back positive. His arterial blood gas was done today. I believe it showed a pH in the normal range, pO2 was only about 70 on 100% FiO2. Chest x-ray has been reviewed. He does have gross cardiomegaly, faint basilar infiltrates, really no focal consolidation, no pneumothorax or other process. A CT of his head was also done at admission and it did not show any acute process. ASSESSMENT: 1. Acute hypoxemic respiratory failure. 2. COVID-19 infection. 3. Community acquired pneumonia. 4. Adult failure to thrive. 5. History of skin cancer. 6. History of chronic urinary retention. 7. Urinary tract infection. 8. Mild metabolic acidosis. 9. Hypothyroidism. PLAN: In light of his overall debility, lethargy and overall generalized slowing, I think it might be appropriate to treat him empirically for hypothyroidism, understanding that the numbers may be skewed due to his acute illness. I will give him a one-time dose of 25 mcg IV of Levoxyl and then put him on oral Levoxyl. I will go with about 25 mg p.o. daily. Oxygen, in the meantime, will be weaned to keep sats greater than or equal to about 90%. Aspiration precautions will be maintained. I have asked them to deploy high flow nasal cannula via the Vapotherm system. I will begin bilevel positive airway pressure ventilation therapy at bedtime. I have also asked them to do really good oral care on this gentleman. His oropharynx is full of secretions. I have spoken to the nurse and the respiratory therapist and certainly that needs to be done before he is placed on BiPAP. From a COVID-19 standpoint, Infectious disease consultation is appropriate. We will start him empirically on remdesivir therapy. He is on systemic steroids. He is on empiric Levaquin therapy, both from UTI standpoint and from a community-acquired pneumonia therapy. He is growing E. coli that is sensitive to Levaquin. I will continue DVT prophylaxis doses of anticoagulation; however, this gentleman appears to be significantly sedentary and with the worsening hypoxemia, bilateral lower extremity Dopplers will be ordered as part of venous thromboembolic disease workup plus or minus a CT angio down the line. A swallow evaluation will be ordered, again is appropriately on GI and DVT prophylaxis. Flu and pneumonia vaccination will be addressed per protocol. Thank you very much for the consult. We will follow along and make further recommendations as picture progresses/becomes clearer. I should mention his attended had a discussion with the caregiver today. He actually has been evaluated by speech therapy and a PEG has been recommended. He remains a FULL CODE. I will order a Dobbhoff to be placed right now considering that he will need to receive some medications. He is critically ill on life-sustaining interventions including 100% oxygen therapy and about to be on continuous noninvasive ventilation at very high risk of from cardiopulmonary system decompensation. At this time, I have spent about 35-40 minutes of critical care time without overlap and excluding any procedural time that may be necessary. TID: [id number] RECEIPT: [id number] GARCÍA/KERRY/ANA PAULA
[2021-05-05 04:54] LABS: Mean Corpuscular HGB Conc 33 % (32-34); Mean Corpuscular Volume 84 fl (84-94); Platelet Count 122 K/mm3 (140-440); Red Blood Count 5.83 M/mm3 (3.65-5.03); Red Cell Distribution Width 16.1 % (13.2-15.2)
[2021-05-05 05:16] LABS: Albumin 3.4 g/dL (3.9-5); C-Reactive Protein 11.4 mg/dL (0.00-1.30); Calcium 9.4 mg/dL (8.4-10.2)
[2021-05-05] MEDS: HYDROmorphone 1 MG/1 ML INJ IV PRN (05:18)
[2021-05-05] MEDS: LEVOTHYROXINE 25 MCG TAB PO SCH (05:20)
--- NOTE | 2021-05-05 07:46 | Progress Note ---
Assessment and Plan Assessment and plan: Patient is 86-year-old male who presented with altered mental status after being found by a neighbor. Subsequently found to have UTI has had some improvement in mental status with treatment. Found to be COVID positive. Now requiring supplemental oxygen, steroids started. #Acute metabolic encephalopathy -CT head negative on admission -Likely secondary to UTI vs COVID infection, unclear patient has underlying dementia -Not responsive to commands #Acute hypoxic respiratory failure -Now on high flow nasal cannula -continue continuous pulse ox -Started dexamethasone IV x10 days -Pulmonology following, assistance appreciated -Patient prognosis guarded, multiple attempts made to contact next of kin Rebecca France and Willie with no success -Low threshold to intubate #COVID-19 infection -Isolation precautions -Continuous pulse ox -Covid vitamins on hold pending NG tube placement (multiple attempts to place NG tube unable to be placed) #UTI -Urine culture positive for E. coli sensitive to Levaquin -We will continue Levaquin for 7 days total -Blood culture negative x4 days #DONTA -Creatinine 1.4 today -will monitor for worsening #Skin cancer -Multiple lesions across body most prominent on the head -Will need outpatient follow-up with dermatology #DVT prophylaxis -started prophylactic lovenox due to new respiratory status Total Time Spent with Patient (Minutes): 30 minutes History Interval history: Patient afebrile. Resting on high flow 30 L/min 100%. Not responsive to comm ands. Hospitalist Physical - Physical exam Narrative exam: GENERAL: Malnourished elderly male, sleeping in no acute distress. HEENT: HFNC with nonrebreather in place. Edentulous. CHEST/LUNGS: Coarse breath sounds bilaterally. HEART/CARDIOVASCULAR: RRR. No murmur, rubs or gallops appreciated. ABDOMEN: +BS. NT/ND. SKIN: Multiple waxy colored nodules and necrotic plaques on head and upper extremities. NEURO: Unable to assess. Patient would not awake during exam. EXTREMITIES: No cyanosis, cubbing or edema. PSYCH: Unable to assess. - Constitutional Vitals: Temp Pulse Resp BP Pulse Ox 97.4 F L 91 H 18 132/70 93 05/05/21 05:32 05/05/21 03:31 05/05/21 05:32 05/05/21 05:32 05/05/21 05:58 General appearance: Present: no acute distress, well-nourished, cachectic, disheveled, other (multiple skin lesions ranging from necrotic plaques to nod ules on the skin) HEART Score - HEART Score Troponin: Troponin T 0.014 ng/mL (0.00-0.029) 04/28/21 21:19 Results - Labs CBC & Chem 7: 05/05/21 04:22 05/05/21 04:22 Labs: Laboratory Last Values WBC 8.3 K/mm3 (4.5-11.0) 05/05/21 04:22 RBC 5.83 M/mm3 (3.65-5.03) H 05/05/21 04:22 Hgb 16.0 gm/dl (11.8-15.2) H 05/05/21 04:22 Hct 49.0 % (35.5-45.6) H D 05/05/21 04:22 MCV 84 fl (84-94) 05/05/21 04:22 MCH 27 pg (28-32) L 05/05/21 04:22 MCHC 33 % (32-34) 05/05/21 04:22 RDW 16.1 % (13.2-15.2) H 05/05/21 04:22 Plt Count 122 K/mm3 (140-440) L 05/05/21 04:22 Lymph % (Auto) 21.9 % (13.4-35.0) 04/30/21 04:13 [place] % (Auto) 6.5 % (0.0-7.3) 04/30/21 04:13 Eos % (Auto) 0.1 % (0.0-4.3) 04/30/21 04:13 Baso % (Auto) 0.3 % (0.0-1.8) 04/30/21 04:13 Lymph # (Auto) 1.1 K/mm3 (1.2-5.4) L 04/30/21 04:13 [place] # (Auto) 0.3 K/mm3 (0.0-0.8) 04/30/21 04:13 Eos # (Auto) 0.0 K/mm3 (0.0-0.4) 04/30/21 04:13 Baso # (Auto) 0.0 K/mm3 (0.0-0.1) 04/30/21 04:13 Seg Neutrophils % 71.2 % (40.0-70.0) H 04/30/21 04:13 Seg Neutrophils # 3.7 K/mm3 (1.8-7.7) 04/30/21 04:13 PT 13.1 Sec. (12.2-14.9) 04/28/21 21:19 INR 0.93 (0.87-1.13) 04/28/21 21:19 APTT 32.0 Sec. (24.2-36.6) 04/28/21 21:19 D-Dimer 984.89 ng/mlDDU (0-234) H 05/05/21 04:22 ABG pH 7.396 (7.320-7.450) 05/04/21 Unknown POC ABG pCO2 32.3 mmHg (32.0-48.0) 05/04/21 Unknown POC ABG pO2 69.5 mmHg (83-108) L 05/04/21 Unknown POC ABG HCO3 19.4 05/04/21 Unknown ABG O2 Saturation 93.8 (0-100) 05/04/21 Unknown POC ABG Base Excess -4.4 05/04/21 Unknown ABG Hemoglobin 14.3 (12.0-17.5) 05/04/21 Unknown ABG Oxyhemoglobin 92.8 (94-98) L 05/04/21 Unknown ABG Methemoglobin 0.3 (0.0-1.5) 05/04/21 Unknown ABG Sodium 133.1 mmol/L (136.0-145.0) L 05/04/21 Unknown ABG Potassium 4.2 mmol/L (3.40-4.50) 05/04/21 Unknown ABG Chloride 106.0 mmol/L (98-107) 05/04/21 Unknown ABG Glucose 129 mg/dL (65-95) H 05/04/21 Unknown Carboxyhemoglobin 0.8 (0.5-1.5) 05/04/21 Unknown FiO2 % 100.0 05/04/21 Unknown Sodium 139 mmol/L (137-145) 05/05/21 04:22 Potassium 4.9 mmol/L (3.6-5.0) 05/05/21 04:22 Chloride 104.1 mmol/L (98-107) 05/05/21 04:22 Carbon Dioxide 21 mmol/L (22-30) L 05/05/21 04:22 Anion Gap 19 mmol/L 05/05/21 04:22 BUN 51 mg/dL (9-20) H 05/05/21 04:22 Creatinine 1.4 mg/dL (0.8-1.3) H 05/05/21 04:22 Estimated GFR 48 ml/min 05/05/21 04:22 BUN/Creatinine Ratio 36 % 05/05/21 04:22 Glucose 128 mg/dL (75-100) H 05/05/21 04:22 POC Glucose 88 mg/dL (70-105) 05/03/21 17:05 Lactic Acid 1.90 mmol/L (0.7-2.0) 05/04/21 15:48 Calcium 9.4 mg/dL (8.4-10.2) 05/05/21 04:22 Ferritin 913.8 ng/mL (30.0-300.0) H 05/05/21 04:22 Total Bilirubin 0.50 mg/dL (0.1-1.2) 05/05/21 04:22 AST 36 units/L (5-40) 05/05/21 04:22 ALT 15 units/L (7-56) 05/05/21 04:22 Alkaline Phosphatase 58 units/L (35-129) 05/05/21 04:22 Ammonia 21.0 umol/L (25-60) L 04/28/21 21:19 Lactate Dehydrogenase 350 units/L (91-180) H 05/03/21 15:37 Total Creatine Kinase 215 units/L (55-170) H 04/28/21 21:19 Troponin T 0.014 ng/mL (0.00-0.029) 04/28/21 21:19 C-Reactive Protein 11.40 mg/dL (0.00-1.30) H 05/05/21 04:22 Total Protein 7.7 g/dL (6.3-8.2) 05/05/21 04:22 Albumin 3.4 g/dL (3.9-5) L 05/05/21 04:22 Albumin/Globulin Ratio 0.8 % 05/05/21 04:22 Procalcitonin 0.17 ng/mL (<0.15) 05/03/21 15:37 TSH 12.780 mlU/mL (0.270-4.200) H 04/28/21 21:19 Arterial Blood Glucose 129 mg/dL (65-95) H 05/04/21 Unknown Urine Color Elisa (Yellow) 04/29/21 03:47 Urine Turbidity Cloudy (Clear) 04/29/21 03:47 Urine pH 6.0 (5.0-7.0) 04/29/21 03:47 Ur Specific [place] 1.015 (1.003-1.030) 04/29/21 03:47 Urine Protein >500 mg/dL (Negative) 04/29/21 03:47 Urine Glucose (UA) Neg mg/dL (Negative) 04/29/21 03:47 Urine Ketones Neg mg/dL (Negative) 04/29/21 03:47 Urine Blood Lg (Negative) 04/29/21 03:47 Urine Nitrite Neg (Negative) 04/29/21 03:47 Urine Bilirubin Neg (Negative) 04/29/21 03:47 Urine Urobilinogen < 2.0 mg/dL (<2.0) 04/29/21 03:47 Ur Leukocyte Esterase Lg (Negative) 04/29/21 03:47 Urine WBC (Auto) 176.0 /HPF (0.0-6.0) H 04/29/21 03:47 Urine RBC (Auto) > 182.0 /HPF (0.0-6.0) 04/29/21 03:47 U Epithel Cells (Auto) < 1.0 /HPF (0-13.0) 04/29/21 03:47 Urine Bacteria (Auto) 2+ /HPF (Negative) 04/29/21 03:47 Urine WBC Clumps 2+ /HPF 04/29/21 03:47 Urine Mucus Few /HPF 04/29/21 03:47 Salicylates < 0.3 mg/dL (2.8-20.0) L 04/28/21 21:19 Acetaminophen 5.0 ug/mL (10.0-30.0) L 04/28/21 21:19 Plasma/Serum Alcohol < 0.01 % (0-0.07) 04/28/21 21:19 Coronavirus (PCR) Positive (Negative) A 05/01/21 Unknown Blood Type A POSITIVE 04/28/21 21:19 Antibody Screen Negative 04/28/21 21:19 Microbiology: Microbiology 04/28/21 21:19 Peripheral/Venous Blood Culture - Final NO GROWTH AFTER 5 DAYS 04/28/21 21:30 Peripheral/Venous Blood Culture - Final NO GROWTH AFTER 5 DAYS Mac/IV: Voiding Method Indwelling Catheter Active Medications - Current Medications Current Medications: Generic Name Dose Route Start Last Admin Trade Name Freq PRN Reason Stop Dose Admin Acetaminophen 650 mg 04/29/21 05:28 05/04/21 06:16 Acetaminophen 325 Mg Tab PO 650 mg Q4H PRN Administration Pain MILD(1-3)/Fever >100.5/COLLIER Albuterol 2.5 mg 04/29/21 05:28 Albuterol 2.5 Mg/3 Ml Nebu IH Q4HRT PRN Shortness Of Breath Dexamethasone 6 mg 05/04/21 10:00 05/04/21 10:42 Dexamethasone 4 Mg/Ml Vial IV 05/13/21 10:01 6 mg QDAY PURNIMA Administration Enoxaparin Sodium 40 mg 05/04/21 22:00 05/04/21 22:59 Enoxaparin 40 Mg/0.4 Ml Inj SUB-Q 40 mg QDAY@2200 PURNIMA Administration Protocol Famotidine 10 mg 04/29/21 10:00 05/04/21 23:00 Famotidine 20 Mg/2 Ml Inj IV 10 mg BID PURNIMA Administration Hydromorphone HCl 0.5 mg 04/29/21 05:28 05/05/21 05:18 Hydromorphone 1 Mg/1 Ml Inj IV 0.5 mg Q3H PRN Administration Pain , Severe (7-10) Levofloxacin/Dextrose 250 mg in 50 mls @ 50 mls/hr 05/02/21 10:00 05/04/21 22:38 Levaquin 250mg/50ml IV 05/06/21 10:59 Infused Q24H PURNIMA Infusion Protocol Lactated Ringer's 1,000 mls @ 75 mls/hr 05/03/21 18:15 05/05/21 07:22 Lactated Ringers IV Infused DIRECT PURNIMA Infusion REMDESIVIR 100 mg/ Sodium 250 mls @ 500 mls/hr 05/05/21 21:00 Chloride IV 05/08/21 21:29 Q24HR@2100 PURNIMA Labetalol HCl 10 mg 05/01/21 11:00 Labetalol 20 Mg/4 Ml Inj IV Q4HR PRN sbp >160, hold for HR <70 Levothyroxine Sodium 25 mcg 05/05/21 06:00 05/05/21 05:20 Levothyroxine 25 Mcg Tab PO 25 mcg DAILY@0600 PURNIMA Administration Ondansetron HCl 4 mg 04/29/21 05:28 Ondansetron 4 Mg/2 Ml Inj IV Q8H PRN Nausea And Vomiting Sodium Chloride 10 ml 04/29/21 10:00 05/04/21 23:06 Sodium Chloride 0.9% 10 Ml Flush Syringe IV 10 ml BID PURNIMA Administration Sodium Chloride 10 ml 04/29/21 05:28 Sodium Chloride 0.9% 10 Ml Flush Syringe IV PRN PRN LINE FLUSH Sodium Chloride 50 ml 05/04/21 20:30 05/04/21 23:00 Sodium Chloride 0.9% 50 Ml Ivpb IV 05/08/21 21:01 50 ml Q24HR@2100 PURNIMA Administration
[2021-05-05] MEDS: FAMOTIDINE 20 MG/2 ML INJ IV SCH ×2 (09:27→21:18)
[2021-05-05] MEDS: dexAMETHasone 4 MG/ML VIAL IV SCH (09:27)
[2021-05-05] MEDS: LACTATED RINGERS 1,000 ML IV SCH (09:39)
[2021-05-05] MEDS ORDERED: FAMOTIDINE 10 MG TAB PO SCH ×2 (10:00→22:00)
--- NOTE | 2021-05-05 10:08 | Progress Note ---
Assessment and Plan Acute hypoxemic respiratory failure P/F 69.5 Bilateral pneumonia COVID infection Acute encephalopathy, UTI Skin cancer- head lesions - continue to titrate supplemental oxygen to keep SpO2 88-90% (ABG was ordered) -Discussed with RT, BIPAP as inidcated especially for work of breathing. The interphase( FFM) is not producing a good seal secondary - Conservative fluid management, stop IVF -Aspiration precautions, will recommend placement of SBT for enteric nutritional support ( per hospitalist, multiple attempts at NGT placement was unsuccessful) -HOB >30, - Glycemic control with SSI for target BG 140-180 mg while critically ill; avoid hypoglycemia - bronchodilators with pulmonary hygiene per RT - avoid nephrotoxins, renally dose all medications - Maintenance of sleep-wake cycle, avoid delirium - supportive transfusions as clinically indicated to keep HgB>7.0g/dl - VTE prophylaxis - mobility, off loading and frequent turning per facility protocols for pressure ulcer prevention - Monitor hemodynamics closely -Antibiotics, Levofloxacin to complete 5 day course per ID - continue other care per attending / other consultants -Low thershold to transfer to IM if any deterioration or worsening oxygenation COVID SPECIFIC INTERVENTIONS - Remdesivir as per ID/Pulmonary developed protocols - continue systemic steroids for severe COVID-19 infection empirically- Dexamethasone - zinc and vitamin C supplementation - Monitor inflammatory markers per facility protocol - ferritin, Ddimer, CRP -Anticoagulation per system Protocol based on d-dimer and clinical considerations (VTE prophylaxis- Enoxaparin) - Continue contact and airborne isolation -Tocilizumab 8 mg/kg x1 ordered by ID service CONDITION: CRITICAL PROGNOSIS: GUARDED CODE STATUS: FULL CODE The high probability of a clinically significant, sudden or life-threatening deterioration of the [respiratory, cardiovascular and renal ] system(s) required my full and direct attention, intervention and personal management. The aggregate critical care time was [33] minutes without overlap. Time includes spent on; [x] Data Review and interpretation [x] Patient assessment and monitoring of vital signs [x] Documentation Subjective Date of service: 05/05/21 Interval history: Follow up for: Acute hypoxemic resp failure: COVID infection: acute metabolic encephalopathy Seen and examined. Vitals, labs,medications, chart and imaging reviewed. Discussed with nursing and respiratory staff. No reported adverse overnight events. No fevers, remains on high flow oxygen therapy 30L, 100% and a NRBM to maintain saturations of 94%. BIPAP at the bedside Mental status changes persist Objective Vital Signs - 12hr 05/04/21 05/05/21 05/05/21 23:15 02:00 03:31 Temperature Pulse Rate 77 91 H Respiratory 23 40 H Rate Blood Pressure O2 Sat by Pulse 97 96 97 Oximetry 05/05/21 05/05/21 05:32 05:58 Temperature 97.4 F L Pulse Rate Respiratory 18 Rate Blood Pressure 132/70 O2 Sat by Pulse 93 Oximetry Constitutional: appears uncomfortable, other (mild respiraotry distress, grunting , frila looking, chronically ill) Eyes: non-icteric ENT: oropharynx dry Neck: supple Effort: mildly labored Ascultation: Bilateral: diminished breath sounds, rhonchi Cardiovascular: regular rate and rhythm, other (S1,S2) Gastrointestinal: normoactive bowel sounds, soft, non-tender, other (distended, tympanitic on percussion) Integumentary: other (skin cancers most prominent on the head, some are necrotic) Extremities: no cyanosis, pulses normal, cool Neurologic: unable to assess, other Psychiatric: other (unable to assess secondary to mental status) CBC and BMP: 05/05/21 04:22 05/05/21 04:22 ABG, PT/INR, D-dimer: ABG ABG pH 7.396 (7.320-7.450) 05/04/21 Unknown POC ABG pCO2 32.3 mmHg (32.0-48.0) 05/04/21 Unknown POC ABG pO2 69.5 mmHg (83-108) L 05/04/21 Unknown POC ABG HCO3 19.4 05/04/21 Unknown ABG O2 Saturation 93.8 (0-100) 05/04/21 Unknown PT/INR, D-dimer PT 13.1 Sec. (12.2-14.9) 04/28/21 21:19 INR 0.93 (0.87-1.13) 04/28/21 21:19 D-Dimer 984.89 ng/mlDDU (0-234) H 05/05/21 04:22 Abnormal lab findings: Abnormal Labs 04/28/21 04/28/21 04/28/21 21:19 21:19 21:19 WBC RBC Hgb Hct MCV MCH RDW 15.4 H Plt Count 126 L Lymph # (Auto) 0.8 L Seg Neutrophils % 77.8 H D-Dimer POC ABG pO2 ABG Oxyhemoglobin ABG Sodium ABG Glucose Sodium 133 L Chloride 97.3 L Carbon Dioxide 21 L BUN 34 H Creatinine 1.4 H Glucose 108 H POC Glucose Ferritin Ammonia 21.0 L Lactate Dehydrogenase Total Creatine Kinase 215 H C-Reactive Protein Albumin TSH Arterial Blood Glucose Urine WBC (Auto) Salicylates Acetaminophen Coronavirus (PCR) 04/28/21 04/28/21 04/28/21 21:19 21:19 21:19 WBC RBC Hgb Hct MCV MCH RDW Plt Count Lymph # (Auto) Seg Neutrophils % D-Dimer POC ABG pO2 ABG Oxyhemoglobin ABG Sodium ABG Glucose Sodium Chloride Carbon Dioxide BUN Creatinine Glucose POC Glucose Ferritin Ammonia Lactate Dehydrogenase Total Creatine Kinase C-Reactive Protein Albumin TSH 12.780 H Arterial Blood Glucose Urine WBC (Auto) Salicylates < 0.3 L Acetaminophen 5.0 L Coronavirus (PCR) 04/29/21 04/30/21 04/30/21 03:47 04:13 04:13 WBC RBC Hgb Hct MCV MCH RDW 15.8 H Plt Count 105 L Lymph # (Auto) 1.1 L Seg Neutrophils % 71.2 H D-Dimer POC ABG pO2 ABG Oxyhemoglobin ABG Sodium ABG Glucose Sodium 134 L Chloride Carbon Dioxide BUN 34 H Creatinine Glucose POC Glucose Ferritin Ammonia Lactate Dehydrogenase Total Creatine Kinase C-Reactive Protein Albumin TSH Arterial Blood Glucose Urine WBC (Auto) 176.0 H Salicylates Acetaminophen Coronavirus (PCR) 05/01/21 05/02/21 05/02/21 Unknown 08:50 08:50 WBC 4.2 L RBC 5.09 H Hgb Hct MCV MCH RDW 15.6 H Plt Count 100 L Lymph # (Auto) Seg Neutrophils % D-Dimer POC ABG pO2 ABG Oxyhemoglobin ABG Sodium ABG Glucose Sodium 134 L Chloride Carbon Dioxide BUN 30 H Creatinine Glucose POC Glucose Ferritin Ammonia Lactate Dehydrogenase Total Creatine Kinase C-Reactive Protein Albumin TSH Arterial Blood Glucose Urine WBC (Auto) Salicylates Acetaminophen Coronavirus (PCR) Positive A 05/03/21 05/03/21 05/03/21 08:31 08:31 15:37 WBC RBC 5.15 H Hgb Hct MCV 83 L MCH 27 L RDW 15.4 H Plt Count 128 L Lymph # (Auto) Seg Neutrophils % D-Dimer 825.75 H POC ABG pO2 ABG Oxyhemoglobin ABG Sodium ABG Glucose Sodium 136 L Chloride Carbon Dioxide 20 L BUN 43 H Creatinine 1.6 H Glucose 105 H POC Glucose Ferritin Ammonia Lactate Dehydrogenase Total Creatine Kinase C-Reactive Protein Albumin TSH Arterial Blood Glucose Urine WBC (Auto) Salicylates Acetaminophen Coronavirus (PCR) 05/03/21 05/03/21 05/04/21 15:37 15:37 10:00 WBC RBC Hgb Hct MCV MCH RDW Plt Count Lymph # (Auto) Seg Neutrophils % D-Dimer POC ABG pO2 ABG Oxyhemoglobin ABG Sodium ABG Glucose Sodium Chloride Carbon Dioxide 18 L BUN 47 H Creatinine 1.4 H Glucose 104 H 105 H POC Glucose Ferritin 797.9 H Ammonia Lactate Dehydrogenase 350 H Total Creatine Kinase C-Reactive Protein 3.40 H Albumin 2.9 L TSH Arterial Blood Glucose Urine WBC (Auto) Salicylates Acetaminophen Coronavirus (PCR) 05/04/21 05/04/21 05/05/21 20:01 Unknown 04:22 WBC RBC Hgb Hct MCV MCH RDW Plt Count Lymph # (Auto) Seg Neutrophils % D-Dimer POC ABG pO2 69.5 L ABG Oxyhemoglobin 92.8 L ABG Sodium 133.1 L ABG Glucose 129 H Sodium Chloride Carbon Dioxide 17 L 21 L BUN 50 H 51 H Creatinine 1.5 H 1.4 H Glucose 137 H 128 H POC Glucose Ferritin Ammonia Lactate Dehydrogenase Total Creatine Kinase C-Reactive Protein 11.40 H Albumin 2.8 L 3.4 L TSH Arterial Blood Glucose 129 H Urine WBC (Auto) Salicylates Acetaminophen Coronavirus (PCR) 05/05/21 05/05/21 05/05/21 04:22 04:22 04:22 WBC RBC 5.83 H Hgb 16.0 H Hct 49.0 H D MCV MCH 27 L RDW 16.1 H Plt Count 122 L Lymph # (Auto) Seg Neutrophils % D-Dimer 984.89 H POC ABG pO2 ABG Oxyhemoglobin ABG Sodium ABG Glucose Sodium Chloride Carbon Dioxide BUN Creatinine Glucose POC Glucose Ferritin 913.8 H Ammonia Lactate Dehydrogenase Total Creatine Kinase C-Reactive Protein Albumin TSH Arterial Blood Glucose Urine WBC (Auto) Salicylates Acetaminophen Coronavirus (PCR) 05/05/21 07:47 WBC RBC Hgb Hct MCV MCH RDW Plt Count Lymph # (Auto) Seg Neutrophils % D-Dimer POC ABG pO2 ABG Oxyhemoglobin ABG Sodium ABG Glucose Sodium Chloride Carbon Dioxide BUN Creatinine Glucose POC Glucose 114 H Ferritin Ammonia Lactate Dehydrogenase Total Creatine Kinase C-Reactive Protein Albumin TSH Arterial Blood Glucose Urine WBC (Auto) Salicylates Acetaminophen Coronavirus (PCR) Chest x-ray: image reviewed (No acute infiltrates) Prior PFT's, U/S of legs: other ([facility]- No DVTs) Allied health notes reviewed: RT
--- NOTE | 2021-05-05 15:59 | Consultation ---
History of Present Illness - Reason for Consult Consult date: 05/05/21 covid/hypoxia - History of Present Illness 86-year-old male with history of urinary retention, skin cancer, initially admitted on 04/29/2021 secondary to altered mental status for 48 hours, in the ED was found to have a UTI. Urine culture grew E. coli. Unfortunately patient developed worsening encephalopathy, shortness of breath and hypoxia. Patient was tested for COVID-19 which was positive on 05/01/2021. Patient became hypoxic and was placed on high flow nasal cannula, currently on 100%, 20 L. On arrival, temperature 98.2, HR 81, RR 14, O2 sat 96, BP 169/93. Initial WBC 4.6. Hemoglobin 14.1. Platelets 126. D-dimer 94. Ferritin 913. CRP 11.4. Procalcitonin 0.1. Creatinine 1.4. Urinalysis with UTI. Urine culture with E. coli. Chest x-ray x2 no consolidations. Ultrasound no DVT. Review of Systems: reviewed ED and H&P notes. Review of system deferred to minimize COVID-19 transmission. Past History Past Medical History: other (Urinary retention, skin cancer) Medications and Allergies Allergies Allergy/AdvReac Type Severity Reaction Status Date / Time Penicillins AdvReac Unknown Unverified 05/11/16 10:20 Home Medications Medication Instructions Recorded Confirmed Last Taken Type HYDROcodone/ACETAMINOPHEN 1 each PO BID 05/03/21 05/03/21 04/29/21 History [Hydrocodone-Acetamin 7.5-300] clonazePAM [Klonopin] 1 mg PO BID 05/03/21 05/03/21 04/29/21 History Active Meds: Active Medications Acetaminophen (Acetaminophen 325 Mg Tab) 650 mg PO Q4H PRN PRN Reason: Pain MILD(1-3)/Fever >100.5/COLLIER Last Admin: 05/04/21 06:16 Dose: 650 mg Documented by: Albuterol (Albuterol 2.5 Mg/3 Ml Nebu) 2.5 mg IH Q4HRT PRN PRN Reason: Shortness Of Breath Dexamethasone (Dexamethasone 4 Mg/Ml Vial) 6 mg IV QDAY PURNIMA Stop: 05/13/21 10:01 Last Admin: 05/05/21 09:27 Dose: 6 mg Documented by: Enoxaparin Sodium (Enoxaparin 40 Mg/0.4 Ml Inj) 40 mg SUB-Q QDAY@2200 [facility]; Protocol Last Admin: 05/04/21 22:59 Dose: 40 mg Documented by: Famotidine (Famotidine 20 Mg/2 Ml Inj) 10 mg IV BID [facility] Hydromorphone HCl (Hydromorphone 1 Mg/1 Ml Inj) 0.5 mg IV Q3H PRN PRN Reason: Pain , Severe (7-10) Last Admin: 05/05/21 05:18 Dose: 0.5 mg Documented by: Levofloxacin/Dextrose (Levaquin 250mg/50ml) 250 mg in 50 mls @ 50 mls/hr IV Q24H [facility]; Protocol Stop: 05/06/21 10:59 Last Admin: 05/05/21 09:26 Dose: 50 mls/hr Documented by: REMDESIVIR 100 mg/ Sodium (Chloride) 250 mls @ 500 mls/hr IV Q24HR@2100 [facility] Stop: 05/08/21 21:29 Labetalol HCl (Labetalol 20 Mg/4 Ml Inj) 10 mg IV Q4HR PRN PRN Reason: sbp >160, hold for HR <70 Levothyroxine Sodium (Levothyroxine 25 Mcg Tab) 25 mcg PO DAILY@0600 [facility] Last Admin: 05/05/21 05:20 Dose: 25 mcg Documented by: Ondansetron HCl (Ondansetron 4 Mg/2 Ml Inj) 4 mg IV Q8H PRN PRN Reason: Nausea And Vomiting Sodium Chloride (Sodium Chloride 0.9% 10 Ml Flush Syringe) 10 ml IV BID [facility] Last Admin: 05/05/21 09:28 Dose: 10 ml Documented by: Sodium Chloride (Sodium Chloride 0.9% 10 Ml Flush Syringe) 10 ml IV PRN PRN PRN Reason: LINE FLUSH Sodium Chloride (Sodium Chloride 0.9% 50 Ml Ivpb) 50 ml IV Q24HR@2100 [facility] Stop: 05/08/21 21:01 Last Admin: 05/04/21 23:00 Dose: 50 ml Documented by: Physical Examination - Physical Exam Narrative exam: Physical exam deferred to minimize COVID-19 transmission during pandemic. ER and internal medicine physical examination notes reviewed. - Constitutional Vitals: Vital Signs Temp Pulse Resp BP Pulse Ox 97.4 F L 91 H 18 132/70 85 05/05/21 05:32 05/05/21 03:31 05/05/21 05:32 05/05/21 05:32 05/05/21 10:40 Temperature -Last 24 Hours Temperature 97.4 F Temperature 97.5 F Results - Labs CBC & Chem 7: 05/05/21 04:22 05/05/21 04:22 Labs: Abnormal lab results 05/04/21 05/04/21 05/05/21 Range/Units 20:01 Unknown 04:22 RBC (3.65-5.03) M/mm3 Hgb (11.8-15.2) gm/dl Hct (35.5-45.6) % MCH (28-32) pg RDW (13.2-15.2) % Plt Count (140-440) K/mm3 D-Dimer (0-234) ng/mlDDU POC ABG pO2 69.5 L (83-108) mmHg ABG Oxyhemoglobin 92.8 L (94-98) ABG Sodium 133.1 L (136.0-145.0) mmol/L ABG Glucose 129 H (65-95) mg/dL Carbon Dioxide 17 L 21 L (22-30) mmol/L BUN 50 H 51 H (9-20) mg/dL Creatinine 1.5 H 1.4 H (0.8-1.3) mg/dL Glucose 137 H 128 H (75-100) mg/dL POC Glucose (70-105) mg/dL Ferritin (30.0-300.0) ng/mL C-Reactive Protein 11.40 H (0.00-1.30) mg/dL Albumin 2.8 L 3.4 L (3.9-5) g/dL Arterial Blood Glucose 129 H (65-95) mg/dL 05/05/21 05/05/21 05/05/21 Range/Units 04:22 04:22 04:22 RBC 5.83 H (3.65-5.03) M/mm3 Hgb 16.0 H (11.8-15.2) gm/dl Hct 49.0 H D (35.5-45.6) % MCH 27 L (28-32) pg RDW 16.1 H (13.2-15.2) % Plt Count 122 L (140-440) K/mm3 D-Dimer 984.89 H (0-234) ng/mlDDU POC ABG pO2 (83-108) mmHg ABG Oxyhemoglobin (94-98) ABG Sodium (136.0-145.0) mmol/L ABG Glucose (65-95) mg/dL Carbon Dioxide (22-30) mmol/L BUN (9-20) mg/dL Creatinine (0.8-1.3) mg/dL Glucose (75-100) mg/dL POC Glucose (70-105) mg/dL Ferritin 913.8 H (30.0-300.0) ng/mL C-Reactive Protein (0.00-1.30) mg/dL Albumin (3.9-5) g/dL Arterial Blood Glucose (65-95) mg/dL 05/05/21 05/05/21 Range/Units 07:47 12:38 RBC (3.65-5.03) M/mm3 Hgb (11.8-15.2) gm/dl Hct (35.5-45.6) % MCH (28-32) pg RDW (13.2-15.2) % Plt Count (140-440) K/mm3 D-Dimer (0-234) ng/mlDDU POC ABG pO2 (83-108) mmHg ABG Oxyhemoglobin (94-98) ABG Sodium (136.0-145.0) mmol/L ABG Glucose (65-95) mg/dL Carbon Dioxide (22-30) mmol/L BUN (9-20) mg/dL Creatinine (0.8-1.3) mg/dL Glucose (75-100) mg/dL POC Glucose 114 H 111 H (70-105) mg/dL Ferritin (30.0-300.0) ng/mL C-Reactive Protein (0.00-1.30) mg/dL Albumin (3.9-5) g/dL Arterial Blood Glucose (65-95) mg/dL Assessment and Plan Cultures: Blood culture 04/28/2021 no growth Urine culture 04/28/2021 E. coli SARS CoV2 PCR positive Assessment: 86-year-old male with history of urinary retention, skin cancer, initially admitted on 04/29/2021 secondary to altered mental status for 48 hours, in the ED was found to have a UTI. Urine culture grew E. coli. Unfortunately patient developed worsening encephalopathy, shortness of breath and hypoxia: #Presumed Severe COVID pneumonia: CXR no consolidations plan to. Infllammatory markers elevated. D-dimer 984. Ferritin 913. CRP 11.4. Procalcitonin 0.1. #Acute hypoxemic respiratory failure: Currently on HFNC 100%, 30 L #DONTA: from COVID #UTI: Urine culture grew E. coli #Thrombocytopenia: Secondary to COVID-19. Recommendations: -Continue IV/PO daily for 10 days -Continue remdesivir for 5 days (CrCl>30 mg/mL) D2 of 5 -ORDERED Tocilizumab 8 mg/kg x1, discussed with pharmacy -Continue Levaquin for total 5 days -Monitor inflammatory markers - ferritin, Ddimer, CRP, LDH -Monitor liver function test on Remdesivir -Continue anticoagulation per System Protocol -Prone positioning as possible -Pulmonary on board Guarded prognosis Will follow Melissa Dodd MD Infectious Diseases Director [facility] M [phone] O [phone]
[2021-05-05] MEDS ORDERED: TOCILIZUMAB 600 MG in SODIUM CHLORIDE 0.9% 100 ML IV ONE (16:09)
[2021-05-05] MEDS ORDERED: TOCILIZUMAB 648 MG in SODIUM CHLORIDE 0.9% 100 ML IV ONE (18:00)
[2021-05-05] MEDS: ENOXAPARIN 40 MG/0.4 ML INJ SUB-Q SCH (21:18)
[2021-05-05] MEDS: SODIUM CHLORIDE 0.9% 50 ML IVPB IV SCH (21:18)
[2021-05-05] MEDS: REMDESIVIR 100 MG in SODIUM CHLORIDE 0.9% 250ML 250 ML IV SCH (21:18)
[2021-05-06] MEDS: LEVOTHYROXINE 25 MCG TAB PO SCH (05:14)
[2021-05-06 06:55] LABS: Albumin 2.5 g/dL (3.9-5); Calcium 8.3 mg/dL (8.4-10.2)
--- NOTE | 2021-05-06 07:44 | Progress Note ---
Assessment and Plan Assessment and plan: Patient is 86-year-old male who presented with altered mental status after being found by a neighbor. Subsequently found to have UTI has had some improvement in mental status with treatment. Found to be COVID positive. Now requiring supplemental oxygen, steroids started. #Acute metabolic encephalopathy -CT head negative on admission -Likely secondary to UTI vs COVID infection, unclear patient has underlying dementia -Not responsive to commands #Acute hypoxic respiratory failure -continue high flow nasal cannula -continue continuous pulse ox -continue dexamethasone IV x10 days -Pulmonology following, assistance appreciated -Patient prognosis guarded, family wishes to continue with current care -Low threshold to intubate #COVID-19 infection -Isolation precautions -Continuous pulse ox -Covid vitamins on hold as patient is NPO #UTI -Urine culture positive for E. coli sensitive to Levaquin -s/p levaquin #DONTA -Creatinine 1.6 today -likely prerenal in nature -will monitor for worsening #Failure to thrive -discussed inability to take medications and eat by mouth to family, agreed with not proceeding with PEG tube at this time -multiple attempts made at NGT placement -will start TPN, Nutrition consult #Skin cancer -Multiple lesions across body most prominent on the head -Will need outpatient follow-up with dermatology #DVT prophylaxis -continue Lovenox Total Time Spent with Patient (Minutes): 30 minutes History Interval history: Patient afebrile. Resting on high flow 40 L/min 100%. Not responsive to commands. Hospitalist Physical - Physical exam Narrative exam: GENERAL: Malnourished elderly male, sleeping in no acute distress. HEENT: HFNC with nonrebreather in place. Edentulous. Moving head spontaneously. CHEST/LUNGS: Coarse breath sounds bilaterally. HEART/CARDIOVASCULAR: RRR. No murmur, rubs or gallops appreciated. ABDOMEN: +BS. NT/ND. SKIN: Multiple waxy colored nodules and necrotic plaques on head and upper extremities. NEURO: Unable to assess. Patient would not awake during exam. EXTREMITIES: No cyanosis, clubbing or edema. PSYCH: Unable to assess. - Constitutional Vitals: Temp Pulse Resp BP Pulse Ox 98.0 F 80 16 137/80 94 05/06/21 05:15 05/05/21 22:00 05/06/21 05:15 05/06/21 05:15 05/06/21 04:40 General appearance: Present: no acute distress, well-nourished, cachectic, disheveled, other (multiple skin lesions ranging from necrotic plaques to nodules on the skin) - Allied Health Allied health notes reviewed: nursing HEART Score - HEART Score Troponin: Troponin T 0.014 ng/mL (0.00-0.029) 04/28/21 21:19 Results - Labs CBC & Chem 7: 05/05/21 04:22 05/06/21 05:54 Labs: Laboratory Last Values WBC 8.3 K/mm3 (4.5-11.0) 05/05/21 04:22 RBC 5.83 M/mm3 (3.65-5.03) H 05/05/21 04:22 Hgb 16.0 gm/dl (11.8-15.2) H 05/05/21 04:22 Hct 49.0 % (35.5-45.6) H D 05/05/21 04:22 MCV 84 fl (84-94) 05/05/21 04:22 MCH 27 pg (28-32) L 05/05/21 04:22 MCHC 33 % (32-34) 05/05/21 04:22 RDW 16.1 % (13.2-15.2) H 05/05/21 04:22 Plt Count 122 K/mm3 (140-440) L 05/05/21 04:22 Lymph % (Auto) 21.9 % (13.4-35.0) 04/30/21 04:13 [place] % (Auto) 6.5 % (0.0-7.3) 04/30/21 04:13 Eos % (Auto) 0.1 % (0.0-4.3) 04/30/21 04:13 Baso % (Auto) 0.3 % (0.0-1.8) 04/30/21 04:13 Lymph # (Auto) 1.1 K/mm3 (1.2-5.4) L 04/30/21 04:13 [place] # (Auto) 0.3 K/mm3 (0.0-0.8) 04/30/21 04:13 Eos # (Auto) 0.0 K/mm3 (0.0-0.4) 04/30/21 04:13 Baso # (Auto) 0.0 K/mm3 (0.0-0.1) 04/30/21 04:13 Seg Neutrophils % 71.2 % (40.0-70.0) H 04/30/21 04:13 Seg Neutrophils # 3.7 K/mm3 (1.8-7.7) 04/30/21 04:13 PT 13.1 Sec. (12.2-14.9) 04/28/21 21:19 INR 0.93 (0.87-1.13) 04/28/21 21:19 APTT 32.0 Sec. (24.2-36.6) 04/28/21 21:19 D-Dimer 984.89 ng/mlDDU (0-234) H 05/05/21 04:22 ABG pH 7.396 (7.320-7.450) 05/04/21 Unknown POC ABG pCO2 32.3 mmHg (32.0-48.0) 05/04/21 Unknown POC ABG pO2 69.5 mmHg (83-108) L 05/04/21 Unknown POC ABG HCO3 19.4 05/04/21 Unknown ABG O2 Saturation 93.8 (0-100) 05/04/21 Unknown POC ABG Base Excess -4.4 05/04/21 Unknown ABG Hemoglobin 14.3 (12.0-17.5) 05/04/21 Unknown ABG Oxyhemoglobin 92.8 (94-98) L 05/04/21 Unknown ABG Methemoglobin 0.3 (0.0-1.5) 05/04/21 Unknown ABG Sodium 133.1 mmol/L (136.0-145.0) L 05/04/21 Unknown ABG Potassium 4.2 mmol/L (3.40-4.50) 05/04/21 Unknown ABG Chloride 106.0 mmol/L (98-107) 05/04/21 Unknown ABG Glucose 129 mg/dL (65-95) H 05/04/21 Unknown Carboxyhemoglobin 0.8 (0.5-1.5) 05/04/21 Unknown FiO2 % 100.0 05/04/21 Unknown Sodium 140 mmol/L (137-145) 05/06/21 05:54 Potassium 4.7 mmol/L (3.6-5.0) 05/06/21 05:54 Chloride 110.3 mmol/L (98-107) H 05/06/21 05:54 Carbon Dioxide 21 mmol/L (22-30) L 05/06/21 05:54 Anion Gap 13 mmol/L 05/06/21 05:54 BUN 62 mg/dL (9-20) H 05/06/21 05:54 Creatinine 1.6 mg/dL (0.8-1.3) H 05/06/21 05:54 Estimated GFR 41 ml/min 05/06/21 05:54 BUN/Creatinine Ratio 39 % 05/06/21 05:54 Glucose 137 mg/dL (75-100) H 05/06/21 05:54 POC Glucose 116 mg/dL (70-105) H 05/05/21 21:35 Lactic Acid 1.90 mmol/L (0.7-2.0) 05/04/21 15:48 Calcium 8.3 mg/dL (8.4-10.2) L 05/06/21 05:54 Ferritin 913.8 ng/mL (30.0-300.0) H 05/05/21 04:22 Total Bilirubin 0.40 mg/dL (0.1-1.2) 05/06/21 05:54 AST 32 units/L (5-40) 05/06/21 05:54 ALT 13 units/L (7-56) 05/06/21 05:54 Alkaline Phosphatase 44 units/L (35-129) 05/06/21 05:54 Ammonia 21.0 umol/L (25-60) L 04/28/21 21:19 Lactate Dehydrogenase 350 units/L (91-180) H 05/03/21 15:37 Total Creatine Kinase 215 units/L (55-170) H 04/28/21 21:19 Troponin T 0.014 ng/mL (0.00-0.029) 04/28/21 21:19 C-Reactive Protein 11.40 mg/dL (0.00-1.30) H 05/05/21 04:22 Total Protein 5.9 g/dL (6.3-8.2) L D 05/06/21 05:54 Albumin 2.5 g/dL (3.9-5) L 05/06/21 05:54 Albumin/Globulin Ratio 0.7 % 05/06/21 05:54 Procalcitonin 0.17 ng/mL (<0.15) 05/03/21 15:37 TSH 12.780 mlU/mL (0.270-4.200) H 04/28/21 21:19 Arterial Blood Glucose 129 mg/dL (65-95) H 05/04/21 Unknown Urine Color Elisa (Yellow) 04/29/21 03:47 Urine Turbidity Cloudy (Clear) 04/29/21 03:47 Urine pH 6.0 (5.0-7.0) 04/29/21 03:47 Ur Specific [place] 1.015 (1.003-1.030) 04/29/21 03:47 Urine Protein >500 mg/dL (Negative) 04/29/21 03:47 Urine Glucose (UA) Neg mg/dL (Negative) 04/29/21 03:47 Urine Ketones Neg mg/dL (Negative) 04/29/21 03:47 Urine Blood Lg (Negative) 04/29/21 03:47 Urine Nitrite Neg (Negative) 04/29/21 03:47 Urine Bilirubin Neg (Negative) 04/29/21 03:47 Urine Urobilinogen < 2.0 mg/dL (<2.0) 04/29/21 03:47 Ur Leukocyte Esterase Lg (Negative) 04/29/21 03:47 Urine WBC (Auto) 176.0 /HPF (0.0-6.0) H 04/29/21 03:47 Urine RBC (Auto) > 182.0 /HPF (0.0-6.0) 04/29/21 03:47 U Epithel Cells (Auto) < 1.0 /HPF (0-13.0) 04/29/21 03:47 Urine Bacteria (Auto) 2+ /HPF (Negative) 04/29/21 03:47 Urine WBC Clumps 2+ /HPF 04/29/21 03:47 Urine Mucus Few /HPF 04/29/21 03:47 Salicylates < 0.3 mg/dL (2.8-20.0) L 04/28/21 21:19 Acetaminophen 5.0 ug/mL (10.0-30.0) L 04/28/21 21:19 Plasma/Serum Alcohol < 0.01 % (0-0.07) 04/28/21 21:19 Coronavirus (PCR) Positive (Negative) A 05/01/21 Unknown Blood Type A POSITIVE 04/28/21 21:19 Antibody Screen Negative 04/28/21 21:19 Mac/IV: Voiding Method Indwelling Catheter Active Medications - Current Medications Current Medications: Generic Name Dose Route Start Last Admin Trade Name Freq PRN Reason Stop Dose Admin Acetaminophen 650 mg 04/29/21 05:28 05/04/21 06:16 Acetaminophen 325 Mg Tab PO 650 mg Q4H PRN Administration Pain MILD(1-3)/Fever >100.5/COLLIER Albuterol 2.5 mg 04/29/21 05:28 Albuterol 2.5 Mg/3 Ml Nebu IH Q4HRT PRN Shortness Of Breath Dexamethasone 6 mg 05/04/21 10:00 05/05/21 09:27 Dexamethasone 4 Mg/Ml Vial IV 05/13/21 10:01 6 mg QDAY PURNIMA Administration Enoxaparin Sodium 40 mg 05/04/21 22:00 05/05/21 21:18 Enoxaparin 40 Mg/0.4 Ml Inj SUB-Q 40 mg QDAY@2200 PURNIMA Administration Protocol Famotidine 10 mg 05/05/21 22:00 05/05/21 21:18 Famotidine 20 Mg/2 Ml Inj IV 10 mg BID PURNIMA Administration Hydromorphone HCl 0.5 mg 04/29/21 05:28 05/05/21 05:18 Hydromorphone 1 Mg/1 Ml Inj IV 0.5 mg Q3H PRN Administration Pain , Severe (7-10) Levofloxacin/Dextrose 250 mg in 50 mls @ 50 mls/hr 05/02/21 10:00 05/05/21 09:26 Levaquin 250mg/50ml IV 05/06/21 10:59 50 mls/hr Q24H PURNIMA Administration Protocol REMDESIVIR 100 mg/ Sodium 250 mls @ 500 mls/hr 05/05/21 21:00 05/05/21 21:18 Chloride IV 05/08/21 21:29 500 mls/hr Q24HR@2100 PURNIMA Administration Labetalol HCl 10 mg 05/01/21 11:00 Labetalol 20 Mg/4 Ml Inj IV Q4HR PRN sbp >160, hold for HR <70 Levothyroxine Sodium 25 mcg 05/05/21 06:00 05/06/21 05:14 Levothyroxine 25 Mcg Tab PO Not Given DAILY@0600 PURNIAM Ondansetron HCl 4 mg 04/29/21 05:28 Ondansetron 4 Mg/2 Ml Inj IV Q8H PRN Nausea And Vomiting Sodium Chloride 10 ml 04/29/21 10:00 05/05/21 21:19 Sodium Chloride 0.9% 10 Ml Flush Syringe IV 10 ml BID PURNIMA Administration Sodium Chloride 10 ml 04/29/21 05:28 Sodium Chloride 0.9% 10 Ml Flush Syringe IV PRN PRN LINE FLUSH Sodium Chloride 50 ml 05/04/21 20:30 05/05/21 21:18 Sodium Chloride 0.9% 50 Ml Ivpb IV 05/08/21 21:01 50 ml Q24HR@2100 PURNIMA Administration
--- NOTE | 2021-05-06 09:50 | Progress Note ---
Assessment and Plan Acute hypoxemic respiratory failure P/F 69.5 Bilateral pneumonia COVID infection Acute encephalopathy, UTI Skin cancer- head lesions DONTA, Hyperkalemia - continue to titrate supplemental oxygen to keep SpO2 88-90% -ABG in the morning -Treat hyperkalemia- per hospitalist service -Aspiration precautions, will recommend placement of SBT for enteric nutritional support ( per hospitalist, multiple attempts at NGT placement was unsuccessful). Will need alternate source of nutrition. TPN with a volume limit of 1liter to meet at least 80% of his nutritional needs -HOB >30, - Glycemic control with SSI for target BG 140-180 mg while critically ill; avoid hypoglycemia - bronchodilators with pulmonary hygiene per RT - avoid nephrotoxins, renally dose all medications - Maintenance of sleep-wake cycle, avoid delirium - supportive transfusions as clinically indicated to keep HgB>7.0g/dl - VTE prophylaxis - mobility, off loading and frequent turning per facility protocols for pressure ulcer prevention - Monitor hemodynamics closely -Antibiotics, Levofloxacin to complete 5 day course per ID - continue other care per attending / other consultants -Low threshold to transfer to IMCU if any deterioration or worsening oxygenation Per hospitalist discussions with the family, full code and if he needs mechanical vent support, will provide that. COVID SPECIFIC INTERVENTIONS - Remdesivir as per ID/Pulmonary developed protocols - continue systemic steroids for severe COVID-19 infection empirically- Dexamethasone - zinc and vitamin C supplementation - Monitor inflammatory markers per facility protocol - ferritin, D-dimer, CRP -Anticoagulation per system Protocol based on d-dimer and clinical considerations (VTE prophylaxis- Enoxaparin) - Continue contact and airborne isolation -Tocilizumab 8 mg/kg x1 CONDITION: CRITICAL PROGNOSIS: GUARDED CODE STATUS: FULL CODE The high probability of a clinically significant, sudden or life-threatening deterioration of the [respiratory, cardiovascular and renal ] system(s) required my full and direct attention, intervention and personal management. The aggregate critical care time was [33] minutes without overlap. Time includes spent on; [x] Data Review and interpretation [x] Patient assessment and monitoring of vital signs [x] Documentation Subjective Date of service: 05/06/21 Interval history: Follow up for: Acute hypoxemic resp failure: COVID infection: acute metabolic encephalopathy Seen and examined. Vitals, labs,medications, chart and imaging reviewed. Discussed with nursing and respiratory staff. No reported adverse overnight events. No fevers, remains on high flow oxygen therapy 30L, 100% and a NRBM to maintain saturations of 94%. BIPAP at the bedside Mental status changes persist Objective Vital Signs - 12hr 05/05/21 05/05/21 05/06/21 22:00 22:27 04:40 Temperature Pulse Rate [ 80 Right Radial] Respiratory 20 Rate Blood Pressure O2 Sat by Pulse 95 95 94 Oximetry 05/06/21 05/06/21 05:15 09:34 Temperature 98.0 F Pulse Rate [ Right Radial] Respiratory 16 Rate Blood Pressure 137/80 O2 Sat by Pulse 95 Oximetry Constitutional: appears uncomfortable, other (mild respiraotry distress, grunting , frail looking, chronically ill) Eyes: non-icteric ENT: oropharynx dry Neck: supple Effort: mildly labored Ascultation: Bilateral: diminished breath sounds, rhonchi Cardiovascular: regular rate and rhythm, other (S1,S2) Gastrointestinal: normoactive bowel sounds, soft, non-tender, other (distended, tympanitic on percussion) Integumentary: other (skin cancers most prominent on the head, some are necrotic) Extremities: no cyanosis, pulses normal, cool Neurologic: unable to assess, other Psychiatric: other (unable to assess secondary to mental status) CBC and BMP: 05/05/21 04:22 05/07/21 08:54 ABG, PT/INR, D-dimer: ABG ABG pH 7.396 (7.320-7.450) 05/04/21 Unknown POC ABG pCO2 32.3 mmHg (32.0-48.0) 05/04/21 Unknown POC ABG pO2 69.5 mmHg (83-108) L 05/04/21 Unknown POC ABG HCO3 19.4 05/04/21 Unknown ABG O2 Saturation 93.8 (0-100) 05/04/21 Unknown PT/INR, D-dimer PT 13.1 Sec. (12.2-14.9) 04/28/21 21:19 INR 0.93 (0.87-1.13) 04/28/21 21:19 D-Dimer 984.89 ng/mlDDU (0-234) H 05/05/21 04:22 Abnormal lab findings: Abnormal Labs 04/28/21 04/28/21 04/28/21 21:19 21:19 21:19 WBC RBC Hgb Hct MCV MCH RDW 15.4 H Plt Count 126 L Lymph # (Auto) 0.8 L Seg Neutrophils % 77.8 H D-Dimer POC ABG pO2 ABG Oxyhemoglobin ABG Sodium ABG Glucose Sodium 133 L Chloride 97.3 L Carbon Dioxide 21 L BUN 34 H Creatinine 1.4 H Glucose 108 H POC Glucose Calcium Ferritin Ammonia 21.0 L Lactate Dehydrogenase Total Creatine Kinase 215 H C-Reactive Protein Total Protein Albumin TSH Arterial Blood Glucose Urine WBC (Auto) Salicylates Acetaminophen Coronavirus (PCR) 04/28/21 04/28/21 04/28/21 21:19 21:19 21:19 WBC RBC Hgb Hct MCV MCH RDW Plt Count Lymph # (Auto) Seg Neutrophils % D-Dimer POC ABG pO2 ABG Oxyhemoglobin ABG Sodium ABG Glucose Sodium Chloride Carbon Dioxide BUN Creatinine Glucose POC Glucose Calcium Ferritin Ammonia Lactate Dehydrogenase Total Creatine Kinase C-Reactive Protein Total Protein Albumin TSH 12.780 H Arterial Blood Glucose Urine WBC (Auto) Salicylates < 0.3 L Acetaminophen 5.0 L Coronavirus (PCR) 04/29/21 04/30/21 04/30/21 03:47 04:13 04:13 WBC RBC Hgb Hct MCV MCH RDW 15.8 H Plt Count 105 L Lymph # (Auto) 1.1 L Seg Neutrophils % 71.2 H D-Dimer POC ABG pO2 ABG Oxyhemoglobin ABG Sodium ABG Glucose Sodium 134 L Chloride Carbon Dioxide BUN 34 H Creatinine Glucose POC Glucose Calcium Ferritin Ammonia Lactate Dehydrogenase Total Creatine Kinase C-Reactive Protein Total Protein Albumin TSH Arterial Blood Glucose Urine WBC (Auto) 176.0 H Salicylates Acetaminophen Coronavirus (PCR) 05/01/21 05/02/21 05/02/21 Unknown 08:50 08:50 WBC 4.2 L RBC 5.09 H Hgb Hct MCV MCH RDW 15.6 H Plt Count 100 L Lymph # (Auto) Seg Neutrophils % D-Dimer POC ABG pO2 ABG Oxyhemoglobin ABG Sodium ABG Glucose Sodium 134 L Chloride Carbon Dioxide BUN 30 H Creatinine Glucose POC Glucose Calcium Ferritin Ammonia Lactate Dehydrogenase Total Creatine Kinase C-Reactive Protein Total Protein Albumin TSH Arterial Blood Glucose Urine WBC (Auto) Salicylates Acetaminophen Coronavirus (PCR) Positive A 05/03/21 05/03/21 05/03/21 08:31 08:31 15:37 WBC RBC 5.15 H Hgb Hct MCV 83 L MCH 27 L RDW 15.4 H Plt Count 128 L Lymph # (Auto) Seg Neutrophils % D-Dimer 825.75 H POC ABG pO2 ABG Oxyhemoglobin ABG Sodium ABG Glucose Sodium 136 L Chloride Carbon Dioxide 20 L BUN 43 H Creatinine 1.6 H Glucose 105 H POC Glucose Calcium Ferritin Ammonia Lactate Dehydrogenase Total Creatine Kinase C-Reactive Protein Total Protein Albumin TSH Arterial Blood Glucose Urine WBC (Auto) Salicylates Acetaminophen Coronavirus (PCR) 05/03/21 05/03/21 05/04/21 15:37 15:37 10:00 WBC RBC Hgb Hct MCV MCH RDW Plt Count Lymph # (Auto) Seg Neutrophils % D-Dimer POC ABG pO2 ABG Oxyhemoglobin ABG Sodium ABG Glucose Sodium Chloride Carbon Dioxide 18 L BUN 47 H Creatinine 1.4 H Glucose 104 H 105 H POC Glucose Calcium Ferritin 797.9 H Ammonia Lactate Dehydrogenase 350 H Total Creatine Kinase C-Reactive Protein 3.40 H Total Protein Albumin 2.9 L TSH Arterial Blood Glucose Urine WBC (Auto) Salicylates Acetaminophen Coronavirus (PCR) 05/04/21 05/04/21 05/05/21 20:01 Unknown 04:22 WBC RBC Hgb Hct MCV MCH RDW Plt Count Lymph # (Auto) Seg Neutrophils % D-Dimer POC ABG pO2 69.5 L ABG Oxyhemoglobin 92.8 L ABG Sodium 133.1 L ABG Glucose 129 H Sodium Chloride Carbon Dioxide 17 L 21 L BUN 50 H 51 H Creatinine 1.5 H 1.4 H Glucose 137 H 128 H POC Glucose Calcium Ferritin Ammonia Lactate Dehydrogenase Total Creatine Kinase C-Reactive Protein 11.40 H Total Protein Albumin 2.8 L 3.4 L TSH Arterial Blood Glucose 129 H Urine WBC (Auto) Salicylates Acetaminophen Coronavirus (PCR) 05/05/21 05/05/21 05/05/21 04:22 04:22 04:22 WBC RBC 5.83 H Hgb 16.0 H Hct 49.0 H D MCV MCH 27 L RDW 16.1 H Plt Count 122 L Lymph # (Auto) Seg Neutrophils % D-Dimer 984.89 H POC ABG pO2 ABG Oxyhemoglobin ABG Sodium ABG Glucose Sodium Chloride Carbon Dioxide BUN Creatinine Glucose POC Glucose Calcium Ferritin 913.8 H Ammonia Lactate Dehydrogenase Total Creatine Kinase C-Reactive Protein Total Protein Albumin TSH Arterial Blood Glucose Urine WBC (Auto) Salicylates Acetaminophen Coronavirus (PCR) 05/05/21 05/05/21 05/05/21 07:47 12:38 21:35 WBC RBC Hgb Hct MCV MCH RDW Plt Count Lymph # (Auto) Seg Neutrophils % D-Dimer POC ABG pO2 ABG Oxyhemoglobin ABG Sodium ABG Glucose Sodium Chloride Carbon Dioxide BUN Creatinine Glucose POC Glucose 114 H 111 H 116 H Calcium Ferritin Ammonia Lactate Dehydrogenase Total Creatine Kinase C-Reactive Protein Total Protein Albumin TSH Arterial Blood Glucose Urine WBC (Auto) Salicylates Acetaminophen Coronavirus (PCR) 05/06/21 05/06/21 05:54 07:59 WBC RBC Hgb Hct MCV MCH RDW Plt Count Lymph # (Auto) Seg Neutrophils % D-Dimer POC ABG pO2 ABG Oxyhemoglobin ABG Sodium ABG Glucose Sodium Chloride 110.3 H Carbon Dioxide 21 L BUN 62 H Creatinine 1.6 H Glucose 137 H POC Glucose 130 H Calcium 8.3 L Ferritin Ammonia Lactate Dehydrogenase Total Creatine Kinase C-Reactive Protein Total Protein 5.9 L D Albumin 2.5 L TSH Arterial Blood Glucose Urine WBC (Auto) Salicylates Acetaminophen Coronavirus (PCR) Allied health notes reviewed: RT
--- NOTE | 2021-05-06 13:21 | Event Note ---
Date: 05/06/21 I had a discussion via phone with Willie Hernandez, next of kin. Updated family on patient's condition. They would like to continue with FULL CODE status at this time. They also provided an alternate number if unable to get in touch: [phone].
[2021-05-06] MEDS: REMDESIVIR 100 MG in SODIUM CHLORIDE 0.9% 250ML 250 ML IV SCH (23:28)
[2021-05-06] MEDS: ENOXAPARIN 40 MG/0.4 ML INJ SUB-Q SCH (23:28)
[2021-05-06] MEDS: FAMOTIDINE 20 MG/2 ML INJ IV SCH (23:29)
[2021-05-06] MEDS: SODIUM CHLORIDE 0.9% 50 ML IVPB IV SCH (23:29)
[2021-05-07] MEDS: LEVOTHYROXINE 25 MCG TAB PO SCH (06:21)
[2021-05-07 07:08] LABS: Albumin 2.5 g/dL (3.9-5); Calcium 8.5 mg/dL (8.4-10.2)
--- NOTE | 2021-05-07 07:24 | Progress Note ---
Assessment and Plan Assessment and plan: Patient is 86-year-old male who presented with altered mental status after being found by a neighbor. Subsequently found to have UTI has had some improvement in mental status with treatment. Found to be COVID positive. Now requiring supplemental oxygen, steroids started. #Acute metabolic encephalopathy -CT head negative on admission -Likely secondary to UTI vs COVID infection, unclear patient has underlying dementia -Not responsive to commands #Acute hypoxic respiratory failure -continue high flow nasal cannula -continue continuous pulse ox -continue dexamethasone IV x10 days -Pulmonology following, assistance appreciated -Patient prognosis guarded, family wishes to continue with current care -Low threshold to intubate -ABG in the morning #Hyperkalemia -K 5.4 >6.4 -medical management; EKG w/o T changes -Nephrology consulted #COVID-19 infection -Isolation precautions -Continuous pulse ox -Covid vitamins on hold as patient is NPO #UTI -Urine culture positive for E. coli sensitive to Levaquin -s/p levaquin #DONTA -Creatinine 1.7 today -likely prerenal in nature -given development of hyperkalemia, Nephrology consulted #Failure to thrive -discussed inability to take medications and eat by mouth to family, agreed with not proceeding with PEG tube at this time -multiple attempts made at NGT placement -will start TPN, Nutrition consult #Skin cancer -Multiple lesions across body most prominent on the head -Will need outpatient follow-up with dermatology #DVT prophylaxis -continue Lovenox Total Time Spent with Patient (Minutes): 30 minutes History Interval history: Patient afebrile. Resting on high flow 40 L/min 100%. Not responsive to commands. Hospitalist Physical - Physical exam Narrative exam: GENERAL: Malnourished elderly male, sleeping in no acute distress. HEENT: HFNC with facemask in place. Edentulous. Moving head spontaneously. CHEST/LUNGS: Coarse breath sounds bilaterally. HEART/CARDIOVASCULAR: RRR. No murmur, rubs or gallops appreciated. ABDOMEN: +BS. NT/ND. SKIN: Multiple waxy colored nodules and necrotic plaques on head and upper ext remities. NEURO: Unable to assess. Patient would not awake during exam. EXTREMITIES: No cyanosis, clubbing or edema. PSYCH: Unable to assess. - Constitutional Vitals: Temp Pulse Resp BP Pulse Ox 98.7 F 81 24 160/92 98 09/19/21 06:03 05/07/21 06:03 05/07/21 06:03 05/07/21 06:03 05/07/21 06:03 General appearance: Present: no acute distress, well-nourished, cachectic, disheveled, other (multiple skin lesions ranging from necrotic plaques to nodules on the skin) - Allied Health Allied health notes reviewed: nursing HEART Score - HEART Score Troponin: Troponin T 0.014 ng/mL (0.00-0.029) 04/28/21 21:19 Results - Labs CBC & Chem 7: 05/05/21 04:22 05/07/21 08:54 Labs: Laboratory Last Values WBC 8.3 K/mm3 (4.5-11.0) 05/05/21 04:22 RBC 5.83 M/mm3 (3.65-5.03) H 05/05/21 04:22 Hgb 16.0 gm/dl (11.8-15.2) H 05/05/21 04:22 Hct 49.0 % (35.5-45.6) H D 05/05/21 04:22 MCV 84 fl (84-94) 05/05/21 04:22 MCH 27 pg (28-32) L 05/05/21 04:22 MCHC 33 % (32-34) 05/05/21 04:22 RDW 16.1 % (13.2-15.2) H 05/05/21 04:22 Plt Count 122 K/mm3 (140-440) L 05/05/21 04:22 Lymph % (Auto) 21.9 % (13.4-35.0) 04/30/21 04:13 Logan % (Auto) 6.5 % (0.0-7.3) 04/30/21 04:13 Eos % (Auto) 0.1 % (0.0-4.3) 04/30/21 04:13 Baso % (Auto) 0.3 % (0.0-1.8) 04/30/21 04:13 Lymph # (Auto) 1.1 K/mm3 (1.2-5.4) L 04/30/21 04:13 Logan # (Auto) 0.3 K/mm3 (0.0-0.8) 04/30/21 04:13 Eos # (Auto) 0.0 K/mm3 (0.0-0.4) 04/30/21 04:13 Baso # (Auto) 0.0 K/mm3 (0.0-0.1) 04/30/21 04:13 Seg Neutrophils % 71.2 % (40.0-70.0) H 04/30/21 04:13 Seg Neutrophils # 3.7 K/mm3 (1.8-7.7) 04/30/21 04:13 PT 13.1 Sec. (12.2-14.9) 04/28/21 21:19 INR 0.93 (0.87-1.13) 04/28/21 21:19 APTT 32.0 Sec. (24.2-36.6) 04/28/21 21:19 D-Dimer 984.89 ng/mlDDU (0-234) H 05/05/21 04:22 ABG pH 7.396 (7.320-7.450) 05/04/21 Unknown POC ABG pCO2 32.3 mmHg (32.0-48.0) 05/04/21 Unknown POC ABG pO2 69.5 mmHg (83-108) L 05/04/21 Unknown POC ABG HCO3 19.4 05/04/21 Unknown ABG O2 Saturation 93.8 (0-100) 05/04/21 Unknown POC ABG Base Excess -4.4 05/04/21 Unknown ABG Hemoglobin 14.3 (12.0-17.5) 05/04/21 Unknown ABG Oxyhemoglobin 92.8 (94-98) L 05/04/21 Unknown ABG Methemoglobin 0.3 (0.0-1.5) 05/04/21 Unknown ABG Sodium 133.1 mmol/L (136.0-145.0) L 05/04/21 Unknown ABG Potassium 4.2 mmol/L (3.40-4.50) 05/04/21 Unknown ABG Chloride 106.0 mmol/L (98-107) 05/04/21 Unknown ABG Glucose 129 mg/dL (65-95) H 05/04/21 Unknown Carboxyhemoglobin 0.8 (0.5-1.5) 05/04/21 Unknown FiO2 % 100.0 05/04/21 Unknown Sodium 146 mmol/L (137-145) H 05/07/21 05:56 Potassium 5.6 mmol/L (3.6-5.0) H 05/07/21 05:56 Chloride 114.4 mmol/L (98-107) H 05/07/21 05:56 Carbon Dioxide 26 mmol/L (22-30) 05/07/21 05:56 Anion Gap 11 mmol/L 05/07/21 05:56 BUN 82 mg/dL (9-20) H 05/07/21 05:56 Creatinine 1.7 mg/dL (0.8-1.3) H 05/07/21 05:56 Estimated GFR 38 ml/min 05/07/21 05:56 BUN/Creatinine Ratio 48 % 05/07/21 05:56 Glucose 149 mg/dL (75-100) H 05/07/21 05:56 POC Glucose 116 mg/dL (70-105) H 05/06/21 22:07 Lactic Acid 1.90 mmol/L (0.7-2.0) 05/04/21 15:48 Calcium 8.5 mg/dL (8.4-10.2) 05/07/21 05:56 Ferritin 913.8 ng/mL (30.0-300.0) H 05/05/21 04:22 Total Bilirubin 0.30 mg/dL (0.1-1.2) 05/07/21 05:56 AST 29 units/L (5-40) 05/07/21 05:56 ALT 16 units/L (7-56) 05/07/21 05:56 Alkaline Phosphatase 45 units/L (35-129) 05/07/21 05:56 Ammonia 21.0 umol/L (25-60) L 04/28/21 21:19 Lactate Dehydrogenase 350 units/L (91-180) H 05/03/21 15:37 Total Creatine Kinase 215 units/L (55-170) H 04/28/21 21:19 Troponin T 0.014 ng/mL (0.00-0.029) 04/28/21 21:19 C-Reactive Protein 11.40 mg/dL (0.00-1.30) H 05/05/21 04:22 Total Protein 6.0 g/dL (6.3-8.2) L 05/07/21 05:56 Albumin 2.5 g/dL (3.9-5) L 05/07/21 05:56 Albumin/Globulin Ratio 0.7 % 05/07/21 05:56 Procalcitonin 0.17 ng/mL (<0.15) 05/03/21 15:37 TSH 12.780 mlU/mL (0.270-4.200) H 04/28/21 21:19 Arterial Blood Glucose 129 mg/dL (65-95) H 05/04/21 Unknown Urine Color Elisa (Yellow) 04/29/21 03:47 Urine Turbidity Cloudy (Clear) 04/29/21 03:47 Urine pH 6.0 (5.0-7.0) 04/29/21 03:47 Ur Specific B[place] 1.015 (1.003-1.030) 04/29/21 03:47 Urine Protein >500 mg/dL (Negative) 04/29/21 03:47 Urine Glucose (UA) Neg mg/dL (Negative) 04/29/21 03:47 Urine Ketones Neg mg/dL (Negative) 04/29/21 03:47 Urine Blood Lg (Negative) 04/29/21 03:47 Urine Nitrite Neg (Negative) 04/29/21 03:47 Urine Bilirubin Neg (Negative) 04/29/21 03:47 Urine Urobilinogen < 2.0 mg/dL (<2.0) 04/29/21 03:47 Ur Leukocyte Esterase Lg (Negative) 04/29/21 03:47 Urine WBC (Auto) 176.0 /HPF (0.0-6.0) H 04/29/21 03:47 Urine RBC (Auto) > 182.0 /HPF (0.0-6.0) 04/29/21 03:47 U Epithel Cells (Auto) < 1.0 /HPF (0-13.0) 04/29/21 03:47 Urine Bacteria (Auto) 2+ /HPF (Negative) 04/29/21 03:47 Urine WBC Clumps 2+ /HPF 04/29/21 03:47 Urine Mucus Few /HPF 04/29/21 03:47 Salicylates < 0.3 mg/dL (2.8-20.0) L 04/28/21 21:19 Acetaminophen 5.0 ug/mL (10.0-30.0) L 04/28/21 21:19 Plasma/Serum Alcohol < 0.01 % (0-0.07) 04/28/21 21:19 Coronavirus (PCR) Positive (Negative) A 05/01/21 Unknown Blood Type A POSITIVE 04/28/21 21:19 Antibody Screen Negative 04/28/21 21:19 Mac/IV: Voiding Method Indwelling Catheter Active Medications - Current Medications Current Medications: Generic Name Dose Route Start Last Admin Trade Name Freq PRN Reason Stop Dose Admin Acetaminophen 650 mg 04/29/21 05:28 05/04/21 06:16 Acetaminophen 325 Mg Tab PO 650 mg Q4H PRN Administration Pain MILD(1-3)/Fever >100.5/COLLIER Albuterol 2.5 mg 04/29/21 05:28 Albuterol 2.5 Mg/3 Ml Nebu IH Q4HRT PRN Shortness Of Breath Dexamethasone 6 mg 05/04/21 10:00 05/05/21 09:27 Dexamethasone 4 Mg/Ml Vial IV 05/13/21 10:01 6 mg QDAY PURNIMA Administration Enoxaparin Sodium 40 mg 05/04/21 22:00 05/06/21 23:28 Enoxaparin 40 Mg/0.4 Ml Inj SUB-Q 40 mg QDAY@2200 PURNIMA Administration Protocol Famotidine 10 mg 05/05/21 22:00 05/06/21 23:29 Famotidine 20 Mg/2 Ml Inj IV 10 mg BID PURNIMA Administration Hydromorphone HCl 0.5 mg 04/29/21 05:28 05/05/21 05:18 Hydromorphone 1 Mg/1 Ml Inj IV 0.5 mg Q3H PRN Administration Pain , Severe (7-10) REMDESIVIR 100 mg/ Sodium 250 mls @ 500 mls/hr 05/05/21 21:00 05/06/21 23:28 Chloride IV 05/08/21 21:29 500 mls/hr Q24HR@2100 PURNIMA Administration Labetalol HCl 10 mg 05/01/21 11:00 05/07/21 02:43 Labetalol 20 Mg/4 Ml Inj IV 10 mg Q4HR PRN Administration sbp >160, hold for HR <70 Levothyroxine Sodium 25 mcg 05/05/21 06:00 05/07/21 06:21 Levothyroxine 25 Mcg Tab PO Not Given DAILY@0600 PURNIMA Ondansetron HCl 4 mg 04/29/21 05:28 Ondansetron 4 Mg/2 Ml Inj IV Q8H PRN Nausea And Vomiting Sodium Chloride 10 ml 04/29/21 10:00 05/06/21 23:30 Sodium Chloride 0.9% 10 Ml Flush Syringe IV 10 ml BID PURNIMA Administration Sodium Chloride 10 ml 04/29/21 05:28 Sodium Chloride 0.9% 10 Ml Flush Syringe IV PRN PRN LINE FLUSH Sodium Chloride 50 ml 05/04/21 20:30 05/06/21 23:29 Sodium Chloride 0.9% 50 Ml Ivpb IV 05/08/21 21:01 50 ml Q24HR@2100 PURNIMA Administration
[2021-05-07] MEDS: dexAMETHasone 4 MG/ML VIAL IV SCH ×2 (09:53→09:55)
[2021-05-07] MEDS: FAMOTIDINE 20 MG/2 ML INJ IV SCH ×2 (09:55→21:09)
[2021-05-07] MEDS ORDERED: D5W/0.2% NACL 1,000 ML IV SCH (12:30)
[2021-05-07] MEDS ORDERED: CALCIUM GLUCONATE 2,000 MG in SODIUM CHLORIDE 0.9% 100 ML IV ONE (12:45)
--- NOTE | 2021-05-07 13:16 | Electrocardiograph Report ---
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
--- NOTE | 2021-05-07 14:09 | Progress Note ---
Assessment and Plan Acute hypoxemic respiratory failure P/F 69.5 Bilateral pneumonia COVID infection Acute encephalopathy, UTI Skin cancer- head lesions DONTA, Hyperkalemia Discussed with hospitalist. Avoid nephrotoxins, renally dose all medications, started on D5 1/4Nsaline for hypernatremia and renal failure Will need PICC line for TPN, so we can limit volume while providing at least 80% of his caloric needs - continue to titrate supplemental oxygen to keep SpO2 88-90% -ABG , CXR as clinically indicated -Treat hyperkalemia, medical management- per hospitalist service -Aspiration precautions, will recommend placement of SBT for enteric nutritional support ( per hospitalist, multiple attempts at NGT placement was unsuccessful). Will need alternate source of nutrition. TPN with a volume limit of 1liter to meet at least 80% of his nutritional needs- order PICC line -HOB >30, - Glycemic control with SSI for target BG 140-180 mg while critically ill; avoid hypoglycemia - bronchodilators with pulmonary hygiene per RT - Maintenance of sleep-wake cycle, avoid delirium - supportive transfusions as clinically indicated to keep HgB>7.0g/dl - VTE prophylaxis - mobility, off loading and frequent turning per facility protocols for pressure ulcer prevention - Monitor hemodynamics closely -Antibiotics, Levofloxacin to complete 5 day course per ID - continue other care per attending / other consultants -Low threshold to transfer to IMCU if any deterioration or worsening oxygenation Per hospitalist discussions with the family, full code and if he needs mechanical vent support, will provide that. COVID SPECIFIC INTERVENTIONS - Remdesivir as per ID/Pulmonary developed protocols - continue systemic steroids for severe COVID-19 infection empirically- Dexamethasone - zinc and vitamin C supplementation - Monitor inflammatory markers per facility protocol - ferritin, D-dimer, CRP -Anticoagulation per system Protocol based on d-dimer and clinical considerations (VTE prophylaxis- Enoxaparin) - Continue contact and airborne isolation -Tocilizumab 8 mg/kg x1 CONDITION: CRITICAL PROGNOSIS: GUARDED CODE STATUS: FULL CODE The high probability of a clinically significant, sudden or life-threatening deterioration of the [respiratory, cardiovascular and renal ] system(s) required my full and direct attention, intervention and personal management. The aggregate critical care time was [33] minutes without overlap. Time includes spent on; [x] Data Review and interpretation [x] Patient assessment and monitoring of vital signs [x] Documentation Subjective Date of service: 05/07/21 Interval history: Follow up for: Acute hypoxemic resp failure: COVID infection: acute metabolic encephalopathy Seen and examined. Vitals, labs,medications, chart and imaging reviewed. Discussed with nursing and respiratory staff. No reported adverse overnight events. No fevers, remains on high flow oxygen therapy 30L, 100% and a NRBM to maintain saturations of 94%. BIPAP at the bedside Mental status changes persist Objective Vital Signs - 12hr 05/07/21 05/07/21 05/07/21 02:42 02:43 06:03 Temperature 98.7 F Pulse Rate 90 81 Respiratory 24 Rate Blood Pressure 170/94 170/94 160/92 O2 Sat by Pulse 98 Oximetry 05/07/21 08:00 Temperature Pulse Rate Respiratory Rate Blood Pressure O2 Sat by Pulse 94 Oximetry Constitutional: appears uncomfortable, other (mild respiraotry distress, grunting , frail looking, chronically ill) Eyes: non-icteric ENT: oropharynx dry Neck: supple Effort: mildly labored Ascultation: Bilateral: diminished breath sounds, rhonchi Cardiovascular: regular rate and rhythm, other (S1,S2) Gastrointestinal: normoactive bowel sounds, soft, non-tender, other (distended, tympanitic on percussion) Integumentary: other (skin cancers most prominent on the head, some are necrotic) Extremities: no cyanosis, pulses normal, cool Neurologic: unable to assess, other Psychiatric: other (unable to assess secondary to mental status) CBC and BMP: 05/08/21 05:29 05/08/21 05:29 ABG, PT/INR, D-dimer: ABG ABG pH 7.396 (7.320-7.450) 05/04/21 Unknown POC ABG pCO2 32.3 mmHg (32.0-48.0) 05/04/21 Unknown POC ABG pO2 69.5 mmHg (83-108) L 05/04/21 Unknown POC ABG HCO3 19.4 05/04/21 Unknown ABG O2 Saturation 93.8 (0-100) 05/04/21 Unknown PT/INR, D-dimer PT 13.1 Sec. (12.2-14.9) 04/28/21 21:19 INR 0.93 (0.87-1.13) 04/28/21 21:19 D-Dimer 984.89 ng/mlDDU (0-234) H 05/05/21 04:22 Abnormal lab findings: Abnormal Labs 04/28/21 04/28/21 04/28/21 21:19 21:19 21:19 WBC RBC Hgb Hct MCV MCH RDW 15.4 H Plt Count 126 L Lymph # (Auto) 0.8 L Seg Neutrophils % 77.8 H D-Dimer POC ABG pO2 ABG Oxyhemoglobin ABG Sodium ABG Glucose Sodium 133 L Potassium Chloride 97.3 L Carbon Dioxide 21 L BUN 34 H Creatinine 1.4 H Glucose 108 H POC Glucose Calcium Magnesium Ferritin Ammonia 21.0 L Lactate Dehydrogenase Total Creatine Kinase 215 H C-Reactive Protein Total Protein Albumin TSH Arterial Blood Glucose Urine WBC (Auto) Salicylates Acetaminophen Coronavirus (PCR) 04/28/21 04/28/21 04/28/21 21:19 21:19 21:19 WBC RBC Hgb Hct MCV MCH RDW Plt Count Lymph # (Auto) Seg Neutrophils % D-Dimer POC ABG pO2 ABG Oxyhemoglobin ABG Sodium ABG Glucose Sodium Potassium Chloride Carbon Dioxide BUN Creatinine Glucose POC Glucose Calcium Magnesium Ferritin Ammonia Lactate Dehydrogenase Total Creatine Kinase C-Reactive Protein Total Protein Albumin TSH 12.780 H Arterial Blood Glucose Urine WBC (Auto) Salicylates < 0.3 L Acetaminophen 5.0 L Coronavirus (PCR) 04/29/21 04/30/21 04/30/21 03:47 04:13 04:13 WBC RBC Hgb Hct MCV MCH RDW 15.8 H Plt Count 105 L Lymph # (Auto) 1.1 L Seg Neutrophils % 71.2 H D-Dimer POC ABG pO2 ABG Oxyhemoglobin ABG Sodium ABG Glucose Sodium 134 L Potassium Chloride Carbon Dioxide BUN 34 H Creatinine Glucose POC Glucose Calcium Magnesium Ferritin Ammonia Lactate Dehydrogenase Total Creatine Kinase C-Reactive Protein Total Protein Albumin TSH Arterial Blood Glucose Urine WBC (Auto) 176.0 H Salicylates Acetaminophen Coronavirus (PCR) 05/01/21 05/02/21 05/02/21 Unknown 08:50 08:50 WBC 4.2 L RBC 5.09 H Hgb Hct MCV MCH RDW 15.6 H Plt Count 100 L Lymph # (Auto) Seg Neutrophils % D-Dimer POC ABG pO2 ABG Oxyhemoglobin ABG Sodium ABG Glucose Sodium 134 L Potassium Chloride Carbon Dioxide BUN 30 H Creatinine Glucose POC Glucose Calcium Magnesium Ferritin Ammonia Lactate Dehydrogenase Total Creatine Kinase C-Reactive Protein Total Protein Albumin TSH Arterial Blood Glucose Urine WBC (Auto) Salicylates Acetaminophen Coronavirus (PCR) Positive A 05/03/21 05/03/21 05/03/21 08:31 08:31 15:37 WBC RBC 5.15 H Hgb Hct MCV 83 L MCH 27 L RDW 15.4 H Plt Count 128 L Lymph # (Auto) Seg Neutrophils % D-Dimer 825.75 H POC ABG pO2 ABG Oxyhemoglobin ABG Sodium ABG Glucose Sodium 136 L Potassium Chloride Carbon Dioxide 20 L BUN 43 H Creatinine 1.6 H Glucose 105 H POC Glucose Calcium Magnesium Ferritin Ammonia Lactate Dehydrogenase Total Creatine Kinase C-Reactive Protein Total Protein Albumin TSH Arterial Blood Glucose Urine WBC (Auto) Salicylates Acetaminophen Coronavirus (PCR) 05/03/21 05/03/21 05/04/21 15:37 15:37 10:00 WBC RBC Hgb Hct MCV MCH RDW Plt Count Lymph # (Auto) Seg Neutrophils % D-Dimer POC ABG pO2 ABG Oxyhemoglobin ABG Sodium ABG Glucose Sodium Potassium Chloride Carbon Dioxide 18 L BUN 47 H Creatinine 1.4 H Glucose 104 H 105 H POC Glucose Calcium Magnesium Ferritin 797.9 H Ammonia Lactate Dehydrogenase 350 H Total Creatine Kinase C-Reactive Protein 3.40 H Total Protein Albumin 2.9 L TSH Arterial Blood Glucose Urine WBC (Auto) Salicylates Acetaminophen Coronavirus (PCR) 05/04/21 05/04/21 05/05/21 20:01 Unknown 04:22 WBC RBC Hgb Hct MCV MCH RDW Plt Count Lymph # (Auto) Seg Neutrophils % D-Dimer POC ABG pO2 69.5 L ABG Oxyhemoglobin 92.8 L ABG Sodium 133.1 L ABG Glucose 129 H Sodium Potassium Chloride Carbon Dioxide 17 L 21 L BUN 50 H 51 H Creatinine 1.5 H 1.4 H Glucose 137 H 128 H POC Glucose Calcium Magnesium Ferritin Ammonia Lactate Dehydrogenase Total Creatine Kinase C-Reactive Protein 11.40 H Total Protein Albumin 2.8 L 3.4 L TSH Arterial Blood Glucose 129 H Urine WBC (Auto) Salicylates Acetaminophen Coronavirus (PCR) 05/05/21 05/05/21 05/05/21 04:22 04:22 04:22 WBC RBC 5.83 H Hgb 16.0 H Hct 49.0 H D MCV MCH 27 L RDW 16.1 H Plt Count 122 L Lymph # (Auto) Seg Neutrophils % D-Dimer 984.89 H POC ABG pO2 ABG Oxyhemoglobin ABG Sodium ABG Glucose Sodium Potassium Chloride Carbon Dioxide BUN Creatinine Glucose POC Glucose Calcium Magnesium Ferritin 913.8 H Ammonia Lactate Dehydrogenase Total Creatine Kinase C-Reactive Protein Total Protein Albumin TSH Arterial Blood Glucose Urine WBC (Auto) Salicylates Acetaminophen Coronavirus (PCR) 05/05/21 05/05/21 05/05/21 07:47 12:38 21:35 WBC RBC Hgb Hct MCV MCH RDW Plt Count Lymph # (Auto) Seg Neutrophils % D-Dimer POC ABG pO2 ABG Oxyhemoglobin ABG Sodium ABG Glucose Sodium Potassium Chloride Carbon Dioxide BUN Creatinine Glucose POC Glucose 114 H 111 H 116 H Calcium Magnesium Ferritin Ammonia Lactate Dehydrogenase Total Creatine Kinase C-Reactive Protein Total Protein Albumin TSH Arterial Blood Glucose Urine WBC (Auto) Salicylates Acetaminophen Coronavirus (PCR) 05/06/21 05/06/21 05/06/21 05:54 07:59 11:43 WBC RBC Hgb Hct MCV MCH RDW Plt Count Lymph # (Auto) Seg Neutrophils % D-Dimer POC ABG pO2 ABG Oxyhemoglobin ABG Sodium ABG Glucose Sodium Potassium Chloride 110.3 H Carbon Dioxide 21 L BUN 62 H Creatinine 1.6 H Glucose 137 H POC Glucose 130 H 125 H Calcium 8.3 L Magnesium Ferritin Ammonia Lactate Dehydrogenase Total Creatine Kinase C-Reactive Protein Total Protein 5.9 L D Albumin 2.5 L TSH Arterial Blood Glucose Urine WBC (Auto) Salicylates Acetaminophen Coronavirus (PCR) 05/06/21 05/06/21 05/07/21 17:31 22:07 05:56 WBC RBC Hgb Hct MCV MCH RDW Plt Count Lymph # (Auto) Seg Neutrophils % D-Dimer POC ABG pO2 ABG Oxyhemoglobin ABG Sodium ABG Glucose Sodium 146 H Potassium 5.6 H Chloride 114.4 H Carbon Dioxide BUN 82 H Creatinine 1.7 H Glucose 149 H POC Glucose 110 H 116 H Calcium Magnesium Ferritin Ammonia Lactate Dehydrogenase Total Creatine Kinase C-Reactive Protein Total Protein 6.0 L Albumin 2.5 L TSH Arterial Blood Glucose Urine WBC (Auto) Salicylates Acetaminophen Coronavirus (PCR) 05/07/21 05/07/21 05/07/21 07:31 08:54 10:37 WBC RBC Hgb Hct MCV MCH RDW Plt Count Lymph # (Auto) Seg Neutrophils % D-Dimer POC ABG pO2 ABG Oxyhemoglobin ABG Sodium ABG Glucose Sodium Potassium 6.4 H* Chloride Carbon Dioxide BUN Creatinine Glucose POC Glucose 138 H Calcium Magnesium 2.40 H Ferritin Ammonia Lactate Dehydrogenase Total Creatine Kinase C-Reactive Protein Total Protein Albumin TSH Arterial Blood Glucose Urine WBC (Auto) Salicylates Acetaminophen Coronavirus (PCR) 05/07/21 11:36 WBC RBC Hgb Hct MCV MCH RDW Plt Count Lymph # (Auto) Seg Neutrophils % D-Dimer POC ABG pO2 ABG Oxyhemoglobin ABG Sodium ABG Glucose Sodium Potassium Chloride Carbon Dioxide BUN Creatinine Glucose POC Glucose 134 H Calcium Magnesium Ferritin Ammonia Lactate Dehydrogenase Total Creatine Kinase C-Reactive Protein Total Protein Albumin TSH Arterial Blood Glucose Urine WBC (Auto) Salicylates Acetaminophen Coronavirus (PCR) [facility] notes reviewed: RT
--- NOTE | 2021-05-07 17:56 | Consultation ---
History of Present Illness - Reason for Consult Consult date: 05/07/21 acute renal failure, hyperkalemia - History of Present Illness Hx obtained from records due to mental status Mr. [place] 86-year-old male with history of urinary retention w/ chronic indwelling kincaid catheter, skin cancer was brought to the emergency room because altered mental status. Patient has a neighbor who checks him from time to time and patient had not been seen in a day or 2. Patient was found mumbling and co nfused. There is no hx of pain fevers chills cough cold congestion In the emergency room initial CT scan of the head shows no acute intracranial abnormality. Patient is found to have a UTI. BUN 34 and SCr 1.4 at admission Past History Past Medical History: other (Urinary retention, skin cancer) Medications and Allergies Allergies Allergy/AdvReac Type Severity Reaction Status Date / Time Penicillins AdvReac Unknown Unverified 05/11/16 10:20 Home Medications Medication Instructions Recorded Confirmed Last Taken Type HYDROcodone/ACETAMINOPHEN 1 each PO BID 05/03/21 05/03/21 04/29/21 History [Hydrocodone-Acetamin 7.5-300] clonazePAM [Klonopin] 1 mg PO BID 05/03/21 05/03/21 04/29/21 History Active Meds: Active Medications Acetaminophen (Acetaminophen 325 Mg Tab) 650 mg PO Q4H PRN PRN Reason: Pain MILD(1-3)/Fever >100.5/COLLIER Last Admin: 05/04/21 06:16 Dose: 650 mg Documented by: Albuterol (Albuterol 2.5 Mg/3 Ml Nebu) 2.5 mg IH Q4HRT PRN PRN Reason: Shortness Of Breath Dexamethasone (Dexamethasone 4 Mg/Ml Vial) 6 mg IV QDAY [facility] Stop: 05/13/21 10:01 Last Admin: 05/07/21 09:55 Dose: 6 mg Documented by: Enoxaparin Sodium (Enoxaparin 30 Mg/0.3 Ml Inj) 30 mg SUB-Q QHS [facility] Famotidine (Famotidine 20 Mg/2 Ml Inj) 10 mg IV BID [facility] Last Admin: 05/07/21 09:55 Dose: 10 mg Documented by: Hydromorphone HCl (Hydromorphone 1 Mg/1 Ml Inj) 0.5 mg IV Q3H PRN PRN Reason: Pain , Severe (7-10) Last Admin: 05/05/21 05:18 Dose: 0.5 mg Documented by: REMDESIVIR 100 mg/ Sodium (Chloride) 250 mls @ 500 mls/hr IV Q24HR@2100 [facility] Stop: 05/08/21 21:29 Last Admin: 05/06/21 23:28 Dose: 500 mls/hr Documented by: Amino Acids/Electrolytes/Dextrose (Tpn Adult) 3,000 mls @ 83.333 mls/hr IV DAILY@2000 [facility]; Protocol Stop: 05/08/21 19:59 Dextrose/Sodium Chloride (D5ns 0.2%) 1,000 mls @ 75 mls/hr IV DIRECT [facility] Labetalol HCl (Labetalol 20 Mg/4 Ml Inj) 10 mg IV Q4HR PRN PRN Reason: sbp >160, hold for HR <70 Last Admin: 05/07/21 02:43 Dose: 10 mg Documented by: Levothyroxine Sodium (Levothyroxine 25 Mcg Tab) 25 mcg PO DAILY@0600 [facility] Last Admin: 05/07/21 06:21 Dose: Not Given Documented by: Ondansetron HCl (Ondansetron 4 Mg/2 Ml Inj) 4 mg IV Q8H PRN PRN Reason: Nausea And Vomiting Sodium Chloride (Sodium Chloride 0.9% 10 Ml Flush Syringe) 10 ml IV BID [facility] Last Admin: 05/07/21 09:56 Dose: 10 ml Documented by: Sodium Chloride (Sodium Chloride 0.9% 10 Ml Flush Syringe) 10 ml IV PRN PRN PRN Reason: LINE FLUSH Sodium Chloride (Sodium Chloride 0.9% 50 Ml Ivpb) 50 ml IV Q24HR@2100 [facility] Stop: 05/08/21 21:01 Last Admin: 05/06/21 23:29 Dose: 50 ml Documented by: Review of Systems ROS unobtainable: due to mental status Exam - Vital Signs Vital signs: Vital Signs Temp Pulse Resp BP Pulse Ox 98.2 F 81 14 169/93 96 04/29/21 00:40 04/29/21 00:40 04/29/21 00:40 04/29/21 00:40 04/29/21 00:40 - General Appearance General appearance: frail EENT: ATNC Respiratory: Decreased Breath Sounds Heart: regular Neurologic: other (somnolent) Musculoskeletal: Present: other (no edema) Results - Lab Results 05/05/21 04:22 05/07/21 08:54 Most recent lab results ABG pH 7.396 (7.320-7.450) 05/04/21 Unknown ABG O2 Saturation 93.8 (0-100) 05/04/21 Unknown Calcium 8.5 mg/dL (8.4-10.2) 05/07/21 05:56 Phosphorus 4.40 mg/dL (2.5-4.5) 05/07/21 10:37 Magnesium 2.40 mg/dL (1.7-2.3) H 05/07/21 10:37 Assessment and Plan Impression: * Nonoliguric acute kidney injury secondary to prerenal azotemia due to dehydration vs ATN related to COVID 19 * Acute hypoxic respiratory failure secondary to COVID 19 PNA * Hyperkalemia * Hypernatremia * Acute encephalopathy * COVID 19 infection * Hx of urinary retention w/ chronic indwelling kincaid * Complicated UTI - EColi Plan: * Medical management of hyperkalemia - patient does not have an NGT. Per RN, failed attempt. Will order Kayexelate enema * Repeat K today * Will change IVF to D5W - continue current rate * Management of COVID 19 infection per ID * Recommend exchanging kincaid catheter if not yet done * Dose medications for renal function * Avoid potential nephrotoxins * AM labs
[2021-05-07] MEDS ORDERED: SODIUM POLYSTYRENE 15 GM/60 ML ORAL LIQD PR ONE (19:00)
[2021-05-07] MEDS ORDERED: DEXTROSE 5% IN WATER 1,000 ML IV SCH (19:00)
[2021-05-07] MEDS ORDERED: TOTAL PARENTERAL NUTRITION 3,000 ML IV SCH (20:00)
[2021-05-07] MEDS: SODIUM CHLORIDE 0.9% 50 ML IVPB IV SCH (21:11)
[2021-05-07] MEDS: REMDESIVIR 100 MG in SODIUM CHLORIDE 0.9% 250ML 250 ML IV SCH (21:11)
[2021-05-07] MEDS: ENOXAPARIN 30 MG/0.3 ML INJ SUB-Q SCH (21:11)
[2021-05-07 22:09] LABS: ABG Base Excess -4.4 mmol/L (-2.0-3.0); ABG HCO3 19.2 mmol/L (20.0-26.0); ABG Methemoglobin 0.6 % (0.0-1.5); ABG Oxygen Saturation 97.7 % (95.0-99.0); ABG PCO2 31.1 mm Hg; ABG PH 7.409 pH Units (7.350-7.450); ABG PO2 101.8 mm Hg (80.0-90.0)
[2021-05-08 00:15] LABS: Calcium 8.6 mg/dL (8.4-10.2)
[2021-05-08 06:11] LABS: Hematocrit 40.6 % (35.5-45.6); Hemoglobin 13.2 gm/dl (11.8-15.2); Mean Corpuscular HGB Conc 32 % (32-34); Mean Corpuscular Volume 83 fl (84-94); Platelet Count 180 K/mm3 (140-440); Red Cell Distribution Width 15.8 % (13.2-15.2)
[2021-05-08 06:15] LABS: C-Reactive Protein 4.1 mg/dL (0.00-1.30); Calcium 8.8 mg/dL (8.4-10.2)
[2021-05-08 06:16] LABS: Albumin 2.8 g/dL (3.9-5)
[2021-05-08] MEDS: LEVOTHYROXINE 25 MCG TAB PO SCH (06:47)
[2021-05-08] MEDS: dexAMETHasone 4 MG/ML VIAL IV SCH (10:47)
[2021-05-08] MEDS: FAMOTIDINE 20 MG/2 ML INJ IV SCH (10:48)
--- NOTE | 2021-05-08 13:39 | Progress Note ---
Assessment and Plan Impression: * Nonoliguric acute kidney injury secondary to prerenal azotemia due to dehydration vs ATN related to COVID 19 * Acute hypoxic respiratory failure secondary to COVID 19 PNA * Hyperkalemia * Hypernatremia * Acute encephalopathy * COVID 19 infection * Hx of urinary retention w/ chronic indwelling kincaid * Complicated UTI - EColi Plan: * S/p medical management of hyperkalemia, repeat K within range * Switched to hypotonic bicarb drip * Will need free water replacement via NG, discussed with Dr Chapman and nurse - once patient has NG tube. will need free water 400 ml Q3h * Management of COVID 19 infection per ID * Recommend exchanging kincaid catheter if not yet done * Dose medications for renal function * Avoid potential nephrotoxins * AM labs Subjective Date of service: 05/08/21 Principal diagnosis: DONTA/COVID Interval history: Nursing, interdisciplinary and consult notes were reviewed Vitals, input and output, medications and labs were reviewed Mental status remains unchanged Objective - Exam Narrative Exam: In order to reduce transmission risk given Covid, exam deferred. Primary team exam reviewed in detail. - Vital Signs Vital signs: Vital Signs - 12hr 05/08/21 05/08/21 05/08/21 02:00 05:15 07:53 Temperature 98.8 F Pulse Rate 82 Respiratory 22 Rate Blood Pressure 181/86 O2 Sat by Pulse 93 98 94 Oximetry 05/08/21 05/08/21 10:00 11:40 Temperature 98.8 F Pulse Rate 85 Respiratory 22 20 Rate Blood Pressure 156/78 O2 Sat by Pulse 94 90 Oximetry - Lab 05/08/21 05:29 05/08/21 05:29 Most recent lab results ABG pH 7.409 pH Units (7.350-7.450) 05/07/21 22:00 ABG pCO2 31.1 mm Hg 05/07/21 22:00 ABG pO2 101.8 mm Hg (80.0-90.0) H 05/07/21 22:00 ABG HCO3 19.2 mmol/L (20.0-26.0) L 05/07/21 22:00 ABG O2 Saturation 97.7 % (95.0-99.0) 05/07/21 22:00 Calcium 8.8 mg/dL (8.4-10.2) 05/08/21 05:29 Phosphorus 3.00 mg/dL (2.5-4.5) D 05/08/21 05:29 Magnesium 2.60 mg/dL (1.7-2.3) H 05/08/21 05:29 Medications & Allergies - Medications Allergies/Adverse Reactions: Allergies Penicillins Adverse Reaction (Unverified 05/11/16 10:20) Unknown Home Medications: Home Medications Medication Instructions Recorded Confirmed Last Taken Type HYDROcodone/ACETAMINOPHEN 1 each PO BID 05/03/21 05/03/21 04/29/21 History [Hydrocodone-Acetamin 7.5-300] clonazePAM [Klonopin] 1 mg PO BID 05/03/21 05/03/21 04/29/21 History Active Medications: Generic Name Dose Route Start Last Admin Trade Name Freq PRN Reason Stop Dose Admin Acetaminophen 650 mg 04/29/21 05:28 05/04/21 06:16 Acetaminophen 325 Mg Tab PO 650 mg Q4H PRN Administration Pain MILD(1-3)/Fever >100.5/COLLIER Albuterol 2.5 mg 04/29/21 05:28 Albuterol 2.5 Mg/3 Ml Nebu IH Q4HRT PRN Shortness Of Breath Dexamethasone 6 mg 05/04/21 10:00 05/08/21 10:47 Dexamethasone 4 Mg/Ml Vial IV 05/13/21 10:01 6 mg QDAY [facility] Administration Enoxaparin Sodium 30 mg 05/07/21 22:00 05/07/21 21:11 Enoxaparin 30 Mg/0.3 Ml Inj SUB-Q 30 mg QHS [facility] Administration Famotidine 10 mg 05/05/21 22:00 05/08/21 10:48 Famotidine 20 Mg/2 Ml Inj IV 10 mg BID [facility] Administration Hydromorphone HCl 0.5 mg 04/29/21 05:28 05/05/21 05:18 Hydromorphone 1 Mg/1 Ml Inj IV 0.5 mg Q3H PRN Administration Pain , Severe (7-10) REMDESIVIR 100 mg/ Sodium 250 mls @ 500 mls/hr 05/05/21 21:00 05/08/21 00:35 Chloride IV 05/08/21 21:29 Infused Q24HR@2100 [facility] Infusion Amino Acids/Electrolytes/Dextrose 3,000 mls @ 83.333 mls/hr 05/07/21 20:00 05/07/21 21:27 Tpn Adult IV 05/08/21 19:59 83.333 mls/hr DAILY@1999 [facility] Administration Protocol Sodium Bicarbonate 100 meq/ 1,100 mls @ 150 mls/hr 05/08/21 10:00 Sterile Water IV 05/12/21 17:19 DIRECT [facility] Fat Emulsion Intravenous 250 mls @ 21 mls/hr 05/08/21 20:00 Intralipid 20% IV 05/09/21 08:00 DAILY@1999 [facility] Amino Acids 1,008 mls @ 42 mls/hr 05/08/21 20:00 Clinimix 4.25%-10% Solution IV 05/09/21 19:59 ONCE [facility] Labetalol HCl 10 mg 05/01/21 11:00 05/07/21 02:43 Labetalol 20 Mg/4 Ml Inj IV 10 mg Q4HR PRN Administration sbp >160, hold for HR <70 Levothyroxine Sodium 25 mcg 05/05/21 06:00 05/08/21 06:47 Levothyroxine 25 Mcg Tab PO Not Given DAILY@0600 [facility] Ondansetron HCl 4 mg 04/29/21 05:28 Ondansetron 4 Mg/2 Ml Inj IV Q8H PRN Nausea And Vomiting Sodium Chloride 10 ml 04/29/21 10:00 05/08/21 10:48 Sodium Chloride 0.9% 10 Ml Flush Syringe IV 10 ml BID [facility] Administration Sodium Chloride 10 ml 04/29/21 05:28 Sodium Chloride 0.9% 10 Ml Flush Syringe IV PRN PRN LINE FLUSH Sodium Chloride 50 ml 05/04/21 20:30 05/07/21 21:11 Sodium Chloride 0.9% 50 Ml Ivpb IV 05/08/21 21:01 50 ml Q24HR@2100 [facility] Administration
[2021-05-08] MEDS: SODIUM BICARBONATE 100 MEQ in WATER FOR INJECTION (PF) 1,000 ML IV SCH (13:42)
--- NOTE | 2021-05-08 13:44 | Progress Note ---
Assessment and Plan 86-year-old male with history of urinary retention, skin cancer was brought to the emergency room because altered mental status. Patient has a neighbor who checks him from time to time. Patient had been seen in a day or 2. Found mumbling and not as coherent as he normally is. Patient has indwelling Mac catheter which appears to have been in for quite some time. Patient is denying any pain fevers ,chills or cough In the emergency room initial CT scan of the head shows no acute intracranial abnormality. But patient is found to have a UTI. Patient BUN is 34 creatinine 1.4 Patients PCR Brumfield virus test is positive. Patients inflammatory markers Serum Ferritin 519.5 D Dimer 1309.67 LDH 459 CPK 215. Troponin .014 CRP 4.10 Lactic acid 1.9 Procalcitonin .7 Patient weak, unresponsive on Vapotherm with 100% FIO2. O2 saturation 89%. Mild shortness of breath at rest. Patient afebrile. Has mild leukocytosis. Blood pressure 116/71, Pulse 81. Chest xray 05/04/21 reported No acute findings Patient has venous doppler studies of legs 05/04/21 reported No sonographic evidence for DVT in either lower extremity. Patient presently on Dexamethasone, S/C Lovenox, Famotidine, Albuterol inhaler. Patient just finished course of REMDESIVIR. I spent critical care time of 40 minutes on this patient. Review the chart, Examine the patient, review labs and xrays, talking to the nursing staff and respiratory therapy in this COVID positive with acute hypoxic respiratory failure. - Patient Problems (1) Acute respiratory failure with hypoxia Current Visit: Yes Status: Acute Plan to address problem: Continue Vapotherm with 100%, FIO2. If patient respiratory status deteriorates, recommend intubation since patient is full code. Continue dexamethasone. Continue S/C Lovenox. Continue famotidine. Albuterol inhaler. (2) Acute metabolic encephalopathy Current Visit: Yes Status: Acute Plan to address problem: Management as per primary care and neurology. (3) Altered mental status Current Visit: Yes Status: Acute Plan to address problem: Management as per primary care and neurology. (4) Dehydration Current Visit: Yes Status: Acute Plan to address problem: Continue I/V fluids. (5) Acute kidney injury Current Visit: Yes Status: Acute Plan to address problem: Management as per nephrology. Subjective Date of service: 05/08/21 Principal diagnosis: DONTA/COVID Interval history: 86-year-old male with history of urinary retention, skin cancer was brought to the emergency room because altered mental status. Patient has a neighbor who checks him from time to time. Patient had been seen in a day or 2. Found mumbling and not as coherent as he normally is. Patient has indwelling Mac catheter which appears to have been in for quite some time. Patient is denying any pain fevers ,chills or cough In the emergency room initial CT scan of the head shows no acute intracranial abnormality. But patient is found to have a UTI. Patient BUN is 34 creatinine 1.4 Patients PCR Brumfield virus test is positive. Patients inflammatory markers Serum Ferritin 519.5 D Dimer 1309.67 LDH 459 CPK 215. Troponin .014 CRP 4.10 Lactic acid 1.9 Procalcitonin .7 Patient weak, unresponsive on Vapotherm with 100% FIO2. O2 saturation 89%. Mild shortness of breath at rest. Patient afebrile. Has mild leukocytosis. Blood pressure 116/71, Pulse 81. Chest xray 05/04/21 reported No acute findings Patient has venous doppler studies of legs 05/04/21 reported No sonographic evidence for DVT in either lower extremity. Patient presently on Dexamethasone, S/C Lovenox, Famotidine, Albuterol inhaler. Patient just finished course of REMDESIVIR. Objective Vital Signs - 12hr 05/08/21 05/08/21 05/08/21 02:00 05:15 07:53 Temperature 98.8 F Pulse Rate 82 Respiratory 22 Rate Blood Pressure 181/86 O2 Sat by Pulse 93 98 94 Oximetry 05/08/21 05/08/21 10:00 11:40 Temperature 98.8 F Pulse Rate 85 Respiratory 22 20 Rate Blood Pressure 156/78 O2 Sat by Pulse 94 90 Oximetry Constitutional: lethargic, asleep, appears uncomfortable, other (mild respiraotry distress, grunting , frail looking, chronically ill) Eyes: non-icteric ENT: oropharynx dry Neck: supple Effort: mildly labored Ascultation: Bilateral: diminished breath sounds, rhonchi Cardiovascular: regular rate and rhythm, other (S1,S2) Gastrointestinal: normoactive bowel sounds, soft, non-tender, other (distended, tympanitic on percussion) Integumentary: other (skin cancers most prominent on the head, some are necrotic) Extremities: no cyanosis, pulses normal, cool Neurologic: unable to assess, other Psychiatric: other (unable to assess secondary to mental status) CBC and BMP: 05/08/21 05:29 05/09/21 05:33 ABG, PT/INR, D-dimer: ABG ABG pH 7.409 pH Units (7.350-7.450) 05/07/21 22:00 POC ABG pCO2 32.3 mmHg (32.0-48.0) 05/04/21 Unknown ABG pCO2 31.1 mm Hg 05/07/21 22:00 POC ABG pO2 69.5 mmHg (83-108) L 05/04/21 Unknown ABG pO2 101.8 mm Hg (80.0-90.0) H 05/07/21 22:00 POC ABG HCO3 19.4 05/04/21 Unknown ABG O2 Saturation 97.7 % (95.0-99.0) 05/07/21 22:00 PT/INR, D-dimer PT 13.1 Sec. (12.2-14.9) 04/28/21 21:19 INR 0.93 (0.87-1.13) 04/28/21 21:19 D-Dimer 1309.67 ng/mlDDU (0-234) H 05/08/21 05:29 Abnormal lab findings: Abnormal Labs 04/28/21 04/28/21 04/28/21 21:19 21:19 21:19 WBC RBC Hgb Hct MCV MCH RDW 15.4 H Plt Count 126 L Lymph # (Auto) 0.8 L Seg Neutrophils % 77.8 H D-Dimer POC ABG pO2 ABG pO2 ABG HCO3 ABG Base Excess ABG Hemoglobin ABG Oxyhemoglobin ABG Sodium ABG Glucose Sodium 133 L Potassium Chloride 97.3 L Carbon Dioxide 21 L BUN 34 H Creatinine 1.4 H Glucose 108 H POC Glucose Calcium Magnesium Ferritin Ammonia 21.0 L Lactate Dehydrogenase Total Creatine Kinase 215 H C-Reactive Protein Total Protein Albumin TSH Arterial Blood Glucose Urine WBC (Auto) Salicylates Acetaminophen Coronavirus (PCR) 04/28/21 04/28/21 04/28/21 21:19 21:19 21:19 WBC RBC Hgb Hct MCV MCH RDW Plt Count Lymph # (Auto) Seg Neutrophils % D-Dimer POC ABG pO2 ABG pO2 ABG HCO3 ABG Base Excess ABG Hemoglobin ABG Oxyhemoglobin ABG Sodium ABG Glucose Sodium Potassium Chloride Carbon Dioxide BUN Creatinine Glucose POC Glucose Calcium Magnesium Ferritin Ammonia Lactate Dehydrogenase Total Creatine Kinase C-Reactive Protein Total Protein Albumin TSH 12.780 H Arterial Blood Glucose Urine WBC (Auto) Salicylates < 0.3 L Acetaminophen 5.0 L Coronavirus (PCR) 04/29/21 04/30/21 04/30/21 03:47 04:13 04:13 WBC RBC Hgb Hct MCV MCH RDW 15.8 H Plt Count 105 L Lymph # (Auto) 1.1 L Seg Neutrophils % 71.2 H D-Dimer POC ABG pO2 ABG pO2 ABG HCO3 ABG Base Excess ABG Hemoglobin ABG Oxyhemoglobin ABG Sodium ABG Glucose Sodium 134 L Potassium Chloride Carbon Dioxide BUN 34 H Creatinine Glucose POC Glucose Calcium Magnesium Ferritin Ammonia Lactate Dehydrogenase Total Creatine Kinase C-Reactive Protein Total Protein Albumin TSH Arterial Blood Glucose Urine WBC (Auto) 176.0 H Salicylates Acetaminophen Coronavirus (PCR) 05/01/21 05/02/21 05/02/21 Unknown 08:50 08:50 WBC 4.2 L RBC 5.09 H Hgb Hct MCV MCH RDW 15.6 H Plt Count 100 L Lymph # (Auto) Seg Neutrophils % D-Dimer POC ABG pO2 ABG pO2 ABG HCO3 ABG Base Excess ABG Hemoglobin ABG Oxyhemoglobin ABG Sodium ABG Glucose Sodium 134 L Potassium Chloride Carbon Dioxide BUN 30 H Creatinine Glucose POC Glucose Calcium Magnesium Ferritin Ammonia Lactate Dehydrogenase Total Creatine Kinase C-Reactive Protein Total Protein Albumin TSH Arterial Blood Glucose Urine WBC (Auto) Salicylates Acetaminophen Coronavirus (PCR) Positive A 05/03/21 05/03/21 05/03/21 08:31 08:31 15:37 WBC RBC 5.15 H Hgb Hct MCV 83 L MCH 27 L RDW 15.4 H Plt Count 128 L Lymph # (Auto) Seg Neutrophils % D-Dimer 825.75 H POC ABG pO2 ABG pO2 ABG HCO3 ABG Base Excess ABG Hemoglobin ABG Oxyhemoglobin ABG Sodium ABG Glucose Sodium 136 L Potassium Chloride Carbon Dioxide 20 L BUN 43 H Creatinine 1.6 H Glucose 105 H POC Glucose Calcium Magnesium Ferritin Ammonia Lactate Dehydrogenase Total Creatine Kinase C-Reactive Protein Total Protein Albumin TSH Arterial Blood Glucose Urine WBC (Auto) Salicylates Acetaminophen Coronavirus (PCR) 05/03/21 05/03/21 05/04/21 15:37 15:37 10:00 WBC RBC Hgb Hct MCV MCH RDW Plt Count Lymph # (Auto) Seg Neutrophils % D-Dimer POC ABG pO2 ABG pO2 ABG HCO3 ABG Base Excess ABG Hemoglobin ABG Oxyhemoglobin ABG Sodium ABG Glucose Sodium Potassium Chloride Carbon Dioxide 18 L BUN 47 H Creatinine 1.4 H Glucose 104 H 105 H POC Glucose Calcium Magnesium Ferritin 797.9 H Ammonia Lactate Dehydrogenase 350 H Total Creatine Kinase C-Reactive Protein 3.40 H Total Protein Albumin 2.9 L TSH Arterial Blood Glucose Urine WBC (Auto) Salicylates Acetaminophen Coronavirus (PCR) 05/04/21 05/04/21 05/05/21 20:01 Unknown 04:22 WBC RBC Hgb Hct MCV MCH RDW Plt Count Lymph # (Auto) Seg Neutrophils % D-Dimer POC ABG pO2 69.5 L ABG pO2 ABG HCO3 ABG Base Excess ABG Hemoglobin ABG Oxyhemoglobin 92.8 L ABG Sodium 133.1 L ABG Glucose 129 H Sodium Potassium Chloride Carbon Dioxide 17 L 21 L BUN 50 H 51 H Creatinine 1.5 H 1.4 H Glucose 137 H 128 H POC Glucose Calcium Magnesium Ferritin Ammonia Lactate Dehydrogenase Total Creatine Kinase C-Reactive Protein 11.40 H Total Protein Albumin 2.8 L 3.4 L TSH Arterial Blood Glucose 129 H Urine WBC (Auto) Salicylates Acetaminophen Coronavirus (PCR) 05/05/21 05/05/21 05/05/21 04:22 04:22 04:22 WBC RBC 5.83 H Hgb 16.0 H Hct 49.0 H D MCV MCH 27 L RDW 16.1 H Plt Count 122 L Lymph # (Auto) Seg Neutrophils % D-Dimer 984.89 H POC ABG pO2 ABG pO2 ABG HCO3 ABG Base Excess ABG Hemoglobin ABG Oxyhemoglobin ABG Sodium ABG Glucose Sodium Potassium Chloride Carbon Dioxide BUN Creatinine Glucose POC Glucose Calcium Magnesium Ferritin 913.8 H Ammonia Lactate Dehydrogenase Total Creatine Kinase C-Reactive Protein Total Protein Albumin TSH Arterial Blood Glucose Urine WBC (Auto) Salicylates Acetaminophen Coronavirus (PCR) 09/17/21 09/17/21 09/17/21 07:47 12:38 21:35 WBC RBC Hgb Hct MCV MCH RDW Plt Count Lymph # (Auto) Seg Neutrophils % D-Dimer POC ABG pO2 ABG pO2 ABG HCO3 ABG Base Excess ABG Hemoglobin ABG Oxyhemoglobin ABG Sodium ABG Glucose Sodium Potassium Chloride Carbon Dioxide BUN Creatinine Glucose POC Glucose 114 H 111 H 116 H Calcium Magnesium Ferritin Ammonia Lactate Dehydrogenase Total Creatine Kinase C-Reactive Protein Total Protein Albumin TSH Arterial Blood Glucose Urine WBC (Auto) Salicylates Acetaminophen Coronavirus (PCR) 05/06/21 05/06/21 05/06/21 05:54 07:59 11:43 WBC RBC Hgb Hct MCV MCH RDW Plt Count Lymph # (Auto) Seg Neutrophils % D-Dimer POC ABG pO2 ABG pO2 ABG HCO3 ABG Base Excess ABG Hemoglobin ABG Oxyhemoglobin ABG Sodium ABG Glucose Sodium Potassium Chloride 110.3 H Carbon Dioxide 21 L BUN 62 H Creatinine 1.6 H Glucose 137 H POC Glucose 130 H 125 H Calcium 8.3 L Magnesium Ferritin Ammonia Lactate Dehydrogenase Total Creatine Kinase C-Reactive Protein Total Protein 5.9 L D Albumin 2.5 L TSH Arterial Blood Glucose Urine WBC (Auto) Salicylates Acetaminophen Coronavirus (PCR) 05/06/21 05/06/21 05/07/21 17:31 22:07 05:56 WBC RBC Hgb Hct MCV MCH RDW Plt Count Lymph # (Auto) Seg Neutrophils % D-Dimer POC ABG pO2 ABG pO2 ABG HCO3 ABG Base Excess ABG Hemoglobin ABG Oxyhemoglobin ABG Sodium ABG Glucose Sodium 146 H Potassium 5.6 H Chloride 114.4 H Carbon Dioxide BUN 82 H Creatinine 1.7 H Glucose 149 H POC Glucose 110 H 116 H Calcium Magnesium Ferritin Ammonia Lactate Dehydrogenase Total Creatine Kinase C-Reactive Protein Total Protein 6.0 L Albumin 2.5 L TSH Arterial Blood Glucose Urine WBC (Auto) Salicylates Acetaminophen Coronavirus (PCR) 05/07/21 05/07/21 05/07/21 07:31 08:54 10:37 WBC RBC Hgb Hct MCV MCH RDW Plt Count Lymph # (Auto) Seg Neutrophils % D-Dimer POC ABG pO2 ABG pO2 ABG HCO3 ABG Base Excess ABG Hemoglobin ABG Oxyhemoglobin ABG Sodium ABG Glucose Sodium Potassium 6.4 H* Chloride Carbon Dioxide BUN Creatinine Glucose POC Glucose 138 H Calcium Magnesium 2.40 H Ferritin Ammonia Lactate Dehydrogenase Total Creatine Kinase C-Reactive Protein Total Protein Albumin TSH Arterial Blood Glucose Urine WBC (Auto) Salicylates Acetaminophen Coronavirus (PCR) 05/07/21 05/07/21 05/07/21 11:36 21:08 22:00 WBC RBC Hgb Hct MCV MCH RDW Plt Count Lymph # (Auto) Seg Neutrophils % D-Dimer POC ABG pO2 ABG pO2 101.8 H ABG HCO3 19.2 L ABG Base Excess -4.4 L ABG Hemoglobin 12.8 L ABG Oxyhemoglobin ABG Sodium ABG Glucose Sodium Potassium Chloride Carbon Dioxide BUN Creatinine Glucose POC Glucose 134 H 129 H Calcium Magnesium Ferritin Ammonia Lactate Dehydrogenase Total Creatine Kinase C-Reactive Protein Total Protein Albumin TSH Arterial Blood Glucose Urine WBC (Auto) Salicylates Acetaminophen Coronavirus (PCR) 05/07/21 05/08/21 05/08/21 23:13 05:29 05:29 WBC 11.2 H RBC Hgb Hct MCV 83 L MCH 27 L RDW 15.8 H Plt Count Lymph # (Auto) Seg Neutrophils % D-Dimer 1309.67 H POC ABG pO2 ABG pO2 ABG HCO3 ABG Base Excess ABG Hemoglobin ABG Oxyhemoglobin ABG Sodium ABG Glucose Sodium 149 H Potassium Chloride 117.0 H Carbon Dioxide BUN 92 H Creatinine 2.0 H Glucose 175 H POC Glucose Calcium Magnesium Ferritin Ammonia Lactate Dehydrogenase Total Creatine Kinase C-Reactive Protein Total Protein Albumin TSH Arterial Blood Glucose Urine WBC (Auto) Salicylates Acetaminophen Coronavirus (PCR) 05/08/21 05/08/21 05/08/21 05:29 05:29 07:45 WBC RBC Hgb Hct MCV MCH RDW Plt Count Lymph # (Auto) Seg Neutrophils % D-Dimer POC ABG pO2 ABG pO2 ABG HCO3 ABG Base Excess ABG Hemoglobin ABG Oxyhemoglobin ABG Sodium ABG Glucose Sodium 149 H Potassium Chloride 117.1 H Carbon Dioxide 21 L BUN 91 H Creatinine 1.9 H Glucose 170 H POC Glucose 146 H Calcium Magnesium 2.60 H Ferritin 519.5 H Ammonia Lactate Dehydrogenase 459 H Total Creatine Kinase C-Reactive Protein 4.10 H Total Protein 5.9 L Albumin 2.8 L TSH Arterial Blood Glucose Urine WBC (Auto) Salicylates Acetaminophen Coronavirus (PCR) 05/08/21 11:38 WBC RBC Hgb Hct MCV MCH RDW Plt Count Lymph # (Auto) Seg Neutrophils % D-Dimer POC ABG pO2 ABG pO2 ABG HCO3 ABG Base Excess ABG Hemoglobin ABG Oxyhemoglobin ABG Sodium ABG Glucose Sodium Potassium Chloride Carbon Dioxide BUN Creatinine Glucose POC Glucose 142 H Calcium Magnesium Ferritin Ammonia Lactate Dehydrogenase Total Creatine Kinase C-Reactive Protein Total Protein Albumin TSH Arterial Blood Glucose Urine WBC (Auto) Salicylates Acetaminophen Coronavirus (PCR) Chest x-ray: report reviewed, image reviewed Prior PFT's, U/S of legs: report reviewed, image reviewed Additional Studies: CHEST 1 VIEW 05/04/2021 9:20 AM INDICATION / CLINICAL INFORMATION: Respiratory failure. COMPARISON: 04/28/2021 FINDINGS: SUPPORT DEVICES: None. HEART / MEDIASTINUM: Stable. LUNGS / PLEURA: Mild bibasilar atelectasis. No pneumothorax. ADDITIONAL FINDINGS: No significant additional findings. IMPRESSION: 1. No acute findings. DUPLEX DOPPLER LOWER EXTREMITY VEINS, BILATERAL 05/04/21 INDICATION / CLINICAL INFORMATION: swelling. TECHNIQUE: Duplex doppler imaging was performed through the veins of both lower extremities using venous compression and other maneuvers. COMPARISON: None available. FINDINGS: RIGHT COMMON FEMORAL VEIN: Negative. RIGHT FEMORAL VEIN: Negative. RIGHT POPLITEAL VEIN: Negative. RIGHT CALF VEINS: Negative. LEFT COMMON FEMORAL VEIN: Negative. LEFT FEMORAL VEIN: Negative. LEFT POPLITEAL VEIN: Negative. LEFT CALF VEINS: Negative. ADDITIONAL FINDINGS: None. IMPRESSION: 1. No sonographic evidence for DVT in either lower extremity. Allied health notes reviewed: RT
--- NOTE | 2021-05-08 15:06 | Progress Note ---
Assessment and Plan Cultures: Blood culture 04/28/2021 no growth Urine culture 04/28/2021 E. coli SARS CoV2 PCR positive Assessment: 86-year-old male with history of urinary retention, skin cancer, initially admitted on 04/29/2021 secondary to altered mental status for 48 hours, in the ED was found to have a UTI. Urine culture grew E. coli. Unfortunately patient developed worsening encephalopathy, shortness of breath and hypoxia: #Presumed Severe COVID pneumonia: CXR no consolidations plan to. Infllammatory markers elevated. D-dimer 984. Ferritin 913. CRP 11.4-->4. Procalcitonin 0.1. #Acute hypoxemic respiratory failure: Remains on high flow, sats in the 90s. #DONTA: from COVID #UTI: Urine culture grew E. coli #Thrombocytopenia: Secondary to COVID-19. Resolved. Recommendations: -Continue steroids IV/PO daily for 10 days -Continue remdesivir for 5 days (CrCl>30 mg/mL) D5 of 5 -Completed Tocilizumab on 05/05/2021 -Completed Levaquin for total 5 days -Monitor inflammatory markers - ferritin, Ddimer, CRP, LDH -Monitor liver function test on Remdesivir -Continue anticoagulation per System Protocol -Prone positioning as possible -Pulmonary on board, may need transfer to [facility] Guarded prognosis Will follow Melissa Dodd MD Infectious Diseases [employer] [facility] ([facility]) M [phone] O [phone] Subjective Date of service: 05/08/21 Principal diagnosis: DONTA/COVID Interval history: Remains on high flow, sats in the 90s. Objective - Exam Narrative Exam: Physical exam deferred to minimize COVID-19 transmission during pandemic. - Constitutional Vitals: Vital Signs Temp Pulse Resp BP Pulse Ox 98.8 F 85 20 156/78 90 05/08/21 11:40 05/08/21 11:40 05/08/21 11:40 05/08/21 11:40 05/08/21 11:40 Temperature -Last 24 Hours Temperature 98.8 F Temperature 98.8 F Temperature 98.1 F Temperature 98.6 F - Labs CBC & Chem 7: 05/08/21 05:29 05/08/21 05:29 Labs: Abnormal lab results 05/07/21 05/07/21 05/07/21 Range/Units 21:08 22:00 23:13 WBC (4.5-11.0) K/mm3 MCV (84-94) fl MCH (28-32) pg RDW (13.2-15.2) % D-Dimer (0-234) ng/mlDDU ABG pO2 101.8 H (80.0-90.0) mm Hg ABG HCO3 19.2 L (20.0-26.0) mmol/L ABG Base Excess -4.4 L (-2.0-3.0) mmol/L ABG Hemoglobin 12.8 L (14.0-18.0) gm/dl Sodium 149 H (137-145) mmol/L Chloride 117.0 H (98-107) mmol/L Carbon Dioxide (22-30) mmol/L BUN 92 H (9-20) mg/dL Creatinine 2.0 H (0.8-1.3) mg/dL Glucose 175 H (75-100) mg/dL POC Glucose 129 H (70-105) mg/dL Magnesium (1.7-2.3) mg/dL Ferritin (30.0-300.0) ng/mL Lactate Dehydrogenase (91-180) units/L C-Reactive Protein (0.00-1.30) mg/dL Total Protein (6.3-8.2) g/dL Albumin (3.9-5) g/dL 05/08/21 05/08/21 05/08/21 Range/Units 05:29 05:29 05:29 WBC 11.2 H (4.5-11.0) K/mm3 MCV 83 L (84-94) fl MCH 27 L (28-32) pg RDW 15.8 H (13.2-15.2) % D-Dimer 1309.67 H (0-234) ng/mlDDU ABG pO2 (80.0-90.0) mm Hg ABG HCO3 (20.0-26.0) mmol/L ABG Base Excess (-2.0-3.0) mmol/L ABG Hemoglobin (14.0-18.0) gm/dl Sodium 149 H (137-145) mmol/L Chloride 117.1 H (98-107) mmol/L Carbon Dioxide 21 L (22-30) mmol/L BUN 91 H (9-20) mg/dL Creatinine 1.9 H (0.8-1.3) mg/dL Glucose 170 H (75-100) mg/dL POC Glucose (70-105) mg/dL Magnesium 2.60 H (1.7-2.3) mg/dL Ferritin (30.0-300.0) ng/mL Lactate Dehydrogenase 459 H (91-180) units/L C-Reactive Protein 4.10 H (0.00-1.30) mg/dL Total Protein 5.9 L (6.3-8.2) g/dL Albumin 2.8 L (3.9-5) g/dL 05/08/21 05/08/21 05/08/21 Range/Units 05:29 07:45 11:38 WBC (4.5-11.0) K/mm3 MCV (84-94) fl MCH (28-32) pg RDW (13.2-15.2) % D-Dimer (0-234) ng/mlDDU ABG pO2 (80.0-90.0) mm Hg ABG HCO3 (20.0-26.0) mmol/L ABG Base Excess (-2.0-3.0) mmol/L ABG Hemoglobin (14.0-18.0) gm/dl Sodium (137-145) mmol/L Chloride (98-107) mmol/L Carbon Dioxide (22-30) mmol/L BUN (9-20) mg/dL Creatinine (0.8-1.3) mg/dL Glucose (75-100) mg/dL POC Glucose 146 H 142 H (70-105) mg/dL Magnesium (1.7-2.3) mg/dL Ferritin 519.5 H (30.0-300.0) ng/mL Lactate Dehydrogenase (91-180) units/L C-Reactive Protein (0.00-1.30) mg/dL Total Protein (6.3-8.2) g/dL Albumin (3.9-5) g/dL
--- NOTE | 2021-05-08 15:42 | XRay Report ---
ABDOMEN 1 VIEW INDICATION / CLINICAL INFORMATION: NG tube placement. COMPARISON: KUB from 05/04/2021. FINDINGS: TUBES / LINES: No NG tube is identified. BOWEL GAS PATTERN: No significant abnormality. FREE AIR / EXTRALUMINAL GAS: None seen. ADDITIONAL FINDINGS: No significant additional findings. IMPRESSION: No NG tube is visualized. Signer Name: Peter Carrion MD Signed: 05/08/2021 3:37 PM Workstation Name: [id number]
--- NOTE | 2021-05-08 16:48 | Gastroenterology Consultation ---
History of Present Illness - Reason for Consult Consult date: 05/08/21 Neurogenic Dysphagia Requesting physician: MARV MORGAN - History of Present Illness The patient is nonverbal and in respiratory distress. He was admitted with sepsis (COVID, E coli UTI) and is being transitioned to retirement. It appears, through the notes in the chart, that his mental status continues to decline. Nephrology recommended NG placement for free water flushes. Nursing and primary MD unable to pass catheter. He has no documented hx of neck cancer or surgery or oropharyngeal lesion. On exam, he is nonverbal and with labored breathing on NRB NC. Past History Past Medical History: other (Urinary retention, skin cancer, COVID) Past Surgical History: Other (Unable to obtain) Social history: other (Unable to obtain) Family history: other (Unable to obtain) Medications and Allergies Allergies Allergy/AdvReac Type Severity Reaction Status Date / Time Penicillins AdvReac Unknown Unverified 05/11/16 10:20 Home Medications Medication Instructions Recorded Confirmed Last Taken Type HYDROcodone/ACETAMINOPHEN 1 each PO BID 05/03/21 05/03/21 04/29/21 History [Hydrocodone-Acetamin 7.5-300] clonazePAM [Klonopin] 1 mg PO BID 05/03/21 05/03/21 04/29/21 History Active Meds: Active Medications Acetaminophen (Acetaminophen 325 Mg Tab) 650 mg PO Q4H PRN PRN Reason: Pain MILD(1-3)/Fever >100.5/COLLIER Last Admin: 05/04/21 06:16 Dose: 650 mg Documented by: Albuterol (Albuterol 2.5 Mg/3 Ml Nebu) 2.5 mg IH Q4HRT PRN PRN Reason: Shortness Of Breath Dexamethasone (Dexamethasone 4 Mg/Ml Vial) 6 mg IV QDAY [facility] Stop: 05/13/21 10:01 Last Admin: 05/08/21 10:47 Dose: 6 mg Documented by: Enoxaparin Sodium (Enoxaparin 30 Mg/0.3 Ml Inj) 30 mg SUB-Q QHS [facility] Last Admin: 05/07/21 21:11 Dose: 30 mg Documented by: Famotidine (Famotidine 20 Mg/2 Ml Inj) 10 mg IV BID [facility] Last Admin: 05/08/21 10:48 Dose: 10 mg Documented by: Hydromorphone HCl (Hydromorphone 1 Mg/1 Ml Inj) 0.5 mg IV Q3H PRN PRN Reason: Pain , Severe (7-10) Last Admin: 05/05/21 05:18 Dose: 0.5 mg Documented by: REMDESIVIR 100 mg/ Sodium (Chloride) 250 mls @ 500 mls/hr IV Q24HR@2100 [facility] Stop: 05/08/21 21:29 Last Infusion: 05/08/21 00:35 Dose: Infused Documented by: Amino Acids/Electrolytes/Dextrose (Tpn Adult) 3,000 mls @ 83.333 mls/hr IV DAILY@1999 [facility]; Protocol Stop: 05/08/21 19:59 Last Admin: 05/07/21 21:27 Dose: 83.333 mls/hr Documented by: Sodium Bicarbonate 100 meq/ (Sterile Water) 1,100 mls @ 150 mls/hr IV DIRECT [facility] Stop: 05/12/21 17:19 Last Admin: 05/08/21 13:42 Dose: 150 mls/hr Documented by: Fat Emulsion Intravenous (Intralipid 20%) 250 mls @ 21 mls/hr IV DAILY@1999 [facility] Stop: 05/09/21 08:00 Amino Acids (Clinimix 4.25%-10% Solution) 1,008 mls @ 42 mls/hr IV ONCE@1999 [facility] Stop: 05/09/21 19:59 Labetalol HCl (Labetalol 20 Mg/4 Ml Inj) 10 mg IV Q4HR PRN PRN Reason: sbp >160, hold for HR <70 Last Admin: 05/07/21 02:43 Dose: 10 mg Documented by: Levothyroxine Sodium (Levothyroxine 25 Mcg Tab) 25 mcg PO DAILY@0600 [facility] Last Admin: 05/08/21 06:47 Dose: Not Given Documented by: Ondansetron HCl (Ondansetron 4 Mg/2 Ml Inj) 4 mg IV Q8H PRN PRN Reason: Nausea And Vomiting Sodium Chloride (Sodium Chloride 0.9% 10 Ml Flush Syringe) 10 ml IV BID [facility] Last Admin: 05/08/21 10:48 Dose: 10 ml Documented by: Sodium Chloride (Sodium Chloride 0.9% 10 Ml Flush Syringe) 10 ml IV PRN PRN PRN Reason: LINE FLUSH Sodium Chloride (Sodium Chloride 0.9% 50 Ml Ivpb) 50 ml IV Q24HR@2100 [facility] Stop: 05/08/21 21:01 Last Admin: 05/07/21 21:11 Dose: 50 ml Documented by: I HAVE REVIEWED/RECONCILED MEDICATIONS Review of Systems - Review of Systems ROS unobtainable: due to mental status Exam - Constitutional Vital Signs: Temp Pulse Resp BP Pulse Ox 98.8 F 85 20 156/78 90 05/08/21 11:40 05/08/21 11:40 05/08/21 11:40 05/08/21 11:40 05/08/21 11:40 General appearance: cachectic, other (Moderate respiratory distress) - EENT Eyes: other (Crusted) ENT: other (Multiple necrotic head skin cancers; Dobhoff passed through R nares to 55cm and taped to nose) - Neck Neck: supple - Respiratory Respiratory effort: labored Respiratory: negative: rhonchi - Cardiovascular Heart Rate: 110 Rhythm: irregularly irregular Heart Sounds: Present: S1 & S2 - Gastrointestinal General gastrointestinal: Present: soft, non-tender, non-distended - Integumentary Integumentary: Present: warm (Multiple skin cancers present) - Neurologic Neurological: other (Not oriented, interactive or verbal) - Labs CBC & Chem 7: 05/08/21 05:29 05/08/21 05:29 Lab Results: Laboratory Results - last 24 hr 05/07/21 05/07/21 05/07/21 21:08 22:00 23:13 WBC RBC Hgb Hct MCV MCH MCHC RDW Plt Count D-Dimer ABG pH 7.409 ABG pCO2 31.1 ABG pO2 101.8 H ABG HCO3 19.2 L ABG O2 Saturation 97.7 ABG O2 Content 17.5 ABG Base Excess -4.4 L ABG Hemoglobin 12.8 L ABG Carboxyhemoglobin 0.8 ABG Methemoglobin 0.6 Oxyhemoglobin 96.4 FiO2 100 Sodium 149 H Potassium 4.8 D Chloride 117.0 H Carbon Dioxide 24 Anion Gap 13 BUN 92 H Creatinine 2.0 H Estimated GFR 32 BUN/Creatinine Ratio 46 Glucose 175 H POC Glucose 129 H Calcium 8.6 Phosphorus Magnesium Ferritin Total Bilirubin AST ALT Alkaline Phosphatase Lactate Dehydrogenase C-Reactive Protein Total Protein Albumin Albumin/Globulin Ratio Triglycerides 05/08/21 05/08/21 05/08/21 05:29 05:29 05:29 WBC 11.2 H RBC 4.90 Hgb 13.2 Hct 40.6 MCV 83 L MCH 27 L MCHC 32 RDW 15.8 H Plt Count 180 D-Dimer 1309.67 H ABG pH ABG pCO2 ABG pO2 ABG HCO3 ABG O2 Saturation ABG O2 Content ABG Base Excess ABG Hemoglobin ABG Carboxyhemoglobin ABG Methemoglobin Oxyhemoglobin FiO2 Sodium 149 H Potassium 4.8 Chloride 117.1 H Carbon Dioxide 21 L Anion Gap 16 BUN 91 H Creatinine 1.9 H Estimated GFR 34 BUN/Creatinine Ratio 48 Glucose 170 H POC Glucose Calcium 8.8 Phosphorus 3.00 D Magnesium 2.60 H Ferritin Total Bilirubin 0.30 AST 14 ALT 11 Alkaline Phosphatase 119 Lactate Dehydrogenase 459 H C-Reactive Protein 4.10 H Total Protein 5.9 L Albumin 2.8 L Albumin/Globulin Ratio 0.9 Triglycerides 121 05/08/21 05/08/21 05/08/21 05:29 07:45 11:38 WBC RBC Hgb Hct MCV MCH MCHC RDW Plt Count D-Dimer ABG pH ABG pCO2 ABG pO2 ABG HCO3 ABG O2 Saturation ABG O2 Content ABG Base Excess ABG Hemoglobin ABG Carboxyhemoglobin ABG Methemoglobin Oxyhemoglobin FiO2 Sodium Potassium Chloride Carbon Dioxide Anion Gap BUN Creatinine Estimated GFR BUN/Creatinine Ratio Glucose POC Glucose 146 H 142 H Calcium Phosphorus Magnesium Ferritin 519.5 H Total Bilirubin AST ALT Alkaline Phosphatase Lactate Dehydrogenase C-Reactive Protein Total Protein Albumin Albumin/Globulin Ratio Triglycerides Assessment and Plan - Patient Problems (1) Neurogenic dysphagia Current Visit: Yes Status: Acute Plan to address problem: - Dobhoff placed during this exam - Will check KUB; if not in place, will need removal - Current SOB/respiratory distress would preclude placement with EGD (unless intubated) - Discussion with family re:goals of care ongoing; patient appears terminal
--- NOTE | 2021-05-08 17:18 | XRay Report ---
ABDOMEN 1 VIEW INDICATION / CLINICAL INFORMATION: Dobhoff placement. COMPARISON: KUB performed earlier today. FINDINGS: TUBES / LINES: A Dobbhoff tube has been placed down the right main bronchus. BOWEL GAS PATTERN: No significant abnormality. FREE AIR / EXTRALUMINAL GAS: None seen. ADDITIONAL FINDINGS: No significant additional findings. IMPRESSION: Malpositioned Dobbhoff tube as above. The limited radiology technician discussed these findings with the patient's nurse at the time of the exam. The Dobhoff tube was subsequently removed. Signer Name: Peter Carrion MD Signed: 05/08/2021 5:14 PM Workstation Name: [id number]
[2021-05-08] MEDS ORDERED: TOTAL PARENTERAL NUTRITION 1,000 ML IV SCH (20:00)
[2021-05-08] MEDS ORDERED: FAT EMULSIONS 20% 250 ML IV SCH (20:00)
[2021-05-08] MEDS ORDERED: AMINO ACIDS IV SCH (20:00)
[2021-05-08] MEDS ORDERED: DEXTROSE 10% IV SCH (20:00)
[2021-05-09] MEDS: REMDESIVIR 100 MG in SODIUM CHLORIDE 0.9% 250ML 250 ML IV SCH (00:06)
[2021-05-09] MEDS: SODIUM CHLORIDE 0.9% 50 ML IVPB IV SCH (00:07)
[2021-05-09] MEDS: ENOXAPARIN 30 MG/0.3 ML INJ SUB-Q SCH (00:07)
[2021-05-09 06:18] LABS: Calcium 8.4 mg/dL (8.4-10.2)
[2021-05-09] MEDS: LEVOTHYROXINE 25 MCG TAB PO SCH (06:39)
--- NOTE | 2021-05-09 11:31 | Progress Note ---
Assessment and Plan Impression: * Nonoliguric acute kidney injury secondary to prerenal azotemia due to dehydration vs ATN related to COVID 19 * Acute hypoxic respiratory failure secondary to COVID 19 PNA * Hyperkalemia * Hypernatremia * Acute encephalopathy * COVID 19 infection * Hx of urinary retention w/ chronic indwelling kincaid * Complicated UTI - EColi Plan: * S/p medical management of hyperkalemia, repeat K within range * Continue hypotonic bicarb drip * Continue free water replacement via NG * Management of COVID 19 infection per ID * Recommend exchanging kincaid catheter if not yet done * Dose medications for renal function * Avoid potential nephrotoxins * AM labs Subjective Date of service: 05/09/21 Principal diagnosis: DONTA/COVID Interval history: Nursing, interdisciplinary and consult notes were reviewed Vitals, input and output, medications and labs were reviewed NG tube was placed by GI Objective - Exam Narrative Exam: In order to reduce transmission risk given Covid, exam deferred. Primary team exam reviewed in detail. - Vital Signs Vital signs: Vital Signs - 12hr 05/09/21 05/09/21 05/09/21 02:00 03:00 10:05 Respiratory 26 H Rate [ Generalized] O2 Sat by Pulse 94 90 Oximetry - Lab 05/08/21 05:29 05/09/21 05:33 Most recent lab results ABG pH 7.409 pH Units (7.350-7.450) 05/07/21 22:00 ABG pCO2 31.1 mm Hg 05/07/21 22:00 ABG pO2 101.8 mm Hg (80.0-90.0) H 05/07/21 22:00 ABG HCO3 19.2 mmol/L (20.0-26.0) L 05/07/21 22:00 ABG O2 Saturation 97.7 % (95.0-99.0) 05/07/21 22:00 Calcium 8.4 mg/dL (8.4-10.2) 05/09/21 05:33 Phosphorus 2.90 mg/dL (2.5-4.5) 05/09/21 05:33 Magnesium 2.20 mg/dL (1.7-2.3) 05/09/21 05:33 Medications & Allergies - Medications Allergies/Adverse Reactions: Allergies Penicillins Adverse Reaction (Unverified 05/11/16 10:20) Unknown Home Medications: Home Medications Medication Instructions Recorded Confirmed Last Taken Type HYDROcodone/ACETAMINOPHEN 1 each PO BID 05/03/21 05/03/21 04/29/21 History [Hydrocodone-Acetamin 7.5-300] clonazePAM [Klonopin] 1 mg PO BID 05/03/21 05/03/21 04/29/21 History Active Medications: Generic Name Dose Route Start Last Admin Trade Name Freq PRN Reason Stop Dose Admin Acetaminophen 650 mg 04/29/21 05:28 05/04/21 06:16 Acetaminophen 325 Mg Tab PO 650 mg Q4H PRN Administration Pain MILD(1-3)/Fever >100.5/COLLIER Albuterol 2.5 mg 04/29/21 05:28 Albuterol 2.5 Mg/3 Ml Nebu IH Q4HRT PRN Shortness Of Breath Dexamethasone 6 mg 05/04/21 10:00 05/08/21 10:47 Dexamethasone 4 Mg/Ml Vial IV 05/13/21 10:01 6 mg QDAY [facility] Administration Enoxaparin Sodium 40 mg 05/09/21 22:00 Enoxaparin 40 Mg/0.4 Ml Inj SUB-Q QHS [facility] Famotidine 10 mg 05/05/21 22:00 05/09/21 00:00 Famotidine 20 Mg/2 Ml Inj IV 10 mg BID [facility] Administration Hydromorphone HCl 0.5 mg 04/29/21 05:28 05/05/21 05:18 Hydromorphone 1 Mg/1 Ml Inj IV 0.5 mg Q3H PRN Administration Pain , Severe (7-10) Sodium Bicarbonate 100 meq/ 1,100 mls @ 150 mls/hr 05/08/21 10:00 05/08/21 13:42 Sterile Water IV 05/12/21 17:19 150 mls/hr DIRECT [facility] Administration Amino Acids 1,008 mls @ 42 mls/hr 05/08/21 20:00 05/08/21 23:58 Clinimix 4.25%-10% Solution IV 05/09/21 19:59 42 mls/hr ONCE@2000 [facility] Administration Labetalol HCl 10 mg 05/01/21 11:00 05/07/21 02:43 Labetalol 20 Mg/4 Ml Inj IV 10 mg Q4HR PRN Administration sbp >160, hold for HR <70 Levothyroxine Sodium 25 mcg 05/05/21 06:00 05/09/21 06:39 Levothyroxine 25 Mcg Tab PO Not Given DAILY@0600 [facility] Ondansetron HCl 4 mg 04/29/21 05:28 Ondansetron 4 Mg/2 Ml Inj IV Q8H PRN Nausea And Vomiting Sodium Chloride 10 ml 04/29/21 10:00 05/09/21 00:01 Sodium Chloride 0.9% 10 Ml Flush Syringe IV 10 ml BID [facility] Administration Sodium Chloride 10 ml 04/29/21 05:28 Sodium Chloride 0.9% 10 Ml Flush Syringe IV PRN PRN LINE FLUSH
[2021-05-09] MEDS: FAMOTIDINE 20 MG/2 ML INJ IV SCH ×3 (11:42→21:16)
[2021-05-09] MEDS: dexAMETHasone 4 MG/ML VIAL IV SCH (11:42)
--- NOTE | 2021-05-09 12:24 | Progress Note ---
Assessment and Plan 86-year-old male with history of urinary retention, skin cancer was brought to the emergency room because altered mental status. Patient has a neighbor who checks him from time to time. Patient had been seen in a day or 2. Found mumbling and not as coherent as he normally is. Patient has indwelling Mac catheter which appears to have been in for quite some time. Patient is denying any pain fevers ,chills or cough In the emergency room initial CT scan of the head shows no acute intracranial abnormality. But patient is found to have a UTI. Patient BUN is 34 creatinine 1.4 Patients PCR Brumfield virus test is positive. Patients inflammatory markers Serum Ferritin 519.5 D Dimer 1309.67 LDH 459 CPK 215. Troponin .014 CRP 4.10 Lactic acid 1.9 Procalcitonin .7 Patient weak, unresponsive on Vapotherm with 100% FIO2. O2 saturation 94%. Mild shortness of breath at rest. Patient afebrile. Has mild leukocytosis. Blood pressure 135/83 , Pulse 97. Chest xray 05/04/21 reported No acute findings Patient has venous doppler studies of legs 05/04/21 reported No sonographic evidence for DVT in either lower extremity. Patient presently on Dexamethasone, S/C Lovenox, Famotidine, Albuterol inhaler. Patient just finished course of REMDESIVIR. Patients prognosis appears poor. I spent critical care time of 35 minutes, in reviewing the chart, examine the patient, review labs, talk to the nursing and respiratory therapy and work out plan of treatment in this critically ill COVID 19 patient with acute hypoxic respiratory failure. - Patient Problems (1) Acute respiratory failure with hypoxia Current Visit: Yes Status: Acute Plan to address problem: Continue Vapotherm with 100%, FIO2. If patient respiratory status deteriorates, recommend intubation since patient is full code. Continue dexamethasone. Continue S/C Lovenox. Continue famotidine. Albuterol inhaler. (2) Acute metabolic encephalopathy Current Visit: Yes Status: Acute Plan to address problem: Management as per primary care and neurology. (3) Altered mental status Current Visit: Yes Status: Acute Plan to address problem: Management as per primary care and neurology. (4) Dehydration Current Visit: Yes Status: Acute Plan to address problem: Continue I/V fluids. (5) Acute kidney injury Current Visit: Yes Status: Acute Plan to address problem: Management as per nephrology. Subjective Date of service: 05/09/21 Principal diagnosis: DONTA/COVID Interval history: 86-year-old male with history of urinary retention, skin cancer was brought to the emergency room because altered mental status. Patient has a neighbor who checks him from time to time. Patient had been seen in a day or 2. Found mumbling and not as coherent as he normally is. Patient has indwelling Mac catheter which appears to have been in for quite some time. Patient is denying any pain fevers ,chills or cough In the emergency room initial CT scan of the head shows no acute intracranial abnormality. But patient is found to have a UTI. Patient BUN is 34 creatinine 1.4 Patients PCR Brumfield virus test is positive. Patients inflammatory markers Serum Ferritin 519.5 D Dimer 1309.67 LDH 459 CPK 215. Troponin .014 CRP 4.10 Lactic acid 1.9 Procalcitonin .7 Patient weak, unresponsive on Vapotherm with 100% FIO2. O2 saturation 94%. Having some increased work of breathing. Patient afebrile. Has mild leukocytosis. Blood pressure 135/83, Pulse 97. Chest xray 05/04/21 reported No acute findings Patient has venous doppler studies of legs 05/04/21 reported No sonographic evidence for DVT in either lower extremity. Patient presently on Dexamethasone, S/C Lovenox, Famotidine, Albuterol inhaler. Patient just finished course of REMDESIVIR. Objective Vital Signs - 12hr 05/09/21 05/09/21 05/09/21 02:00 03:00 10:05 Respiratory 26 H Rate [ Generalized] O2 Sat by Pulse 94 90 Oximetry Constitutional: lethargic, asleep, appears uncomfortable, other (mild respiraotry distress, grunting , frail looking, chronically ill) Eyes: non-icteric ENT: oropharynx dry Neck: supple Effort: mildly labored Ascultation: Bilateral: diminished breath sounds, rhonchi Cardiovascular: regular rate and rhythm, other (S1,S2) Gastrointestinal: normoactive bowel sounds, soft, non-tender, other (distended, tympanitic on percussion) Integumentary: other (skin cancers most prominent on the head, some are necrotic) Extremities: no cyanosis, pulses normal, cool Neurologic: unable to assess, other Psychiatric: other (unable to assess secondary to mental status) CBC and BMP: 05/08/21 05:29 05/09/21 05:33 ABG, PT/INR, D-dimer: ABG ABG pH 7.409 pH Units (7.350-7.450) 05/07/21 22:00 POC ABG pCO2 32.3 mmHg (32.0-48.0) 05/04/21 Unknown ABG pCO2 31.1 mm Hg 05/07/21 22:00 POC ABG pO2 69.5 mmHg (83-108) L 05/04/21 Unknown ABG pO2 101.8 mm Hg (80.0-90.0) H 05/07/21 22:00 POC ABG HCO3 19.4 05/04/21 Unknown ABG O2 Saturation 97.7 % (95.0-99.0) 05/07/21 22:00 PT/INR, D-dimer PT 13.1 Sec. (12.2-14.9) 04/28/21 21:19 INR 0.93 (0.87-1.13) 04/28/21 21:19 D-Dimer 1309.67 ng/mlDDU (0-234) H 05/08/21 05:29 Abnormal lab findings: Abnormal Labs 04/28/21 04/28/21 04/28/21 21:19 21:19 21:19 WBC RBC Hgb Hct MCV MCH RDW 15.4 H Plt Count 126 L Lymph # (Auto) 0.8 L Seg Neutrophils % 77.8 H D-Dimer POC ABG pO2 ABG pO2 ABG HCO3 ABG Base Excess ABG Hemoglobin ABG Oxyhemoglobin ABG Sodium ABG Glucose Sodium 133 L Potassium Chloride 97.3 L Carbon Dioxide 21 L BUN 34 H Creatinine 1.4 H Glucose 108 H POC Glucose Calcium Magnesium Ferritin Ammonia 21.0 L Lactate Dehydrogenase Total Creatine Kinase 215 H C-Reactive Protein Total Protein Albumin TSH Arterial Blood Glucose Urine WBC (Auto) Salicylates Acetaminophen Coronavirus (PCR) 04/28/21 04/28/21 04/28/21 21:19 21:19 21:19 WBC RBC Hgb Hct MCV MCH RDW Plt Count Lymph # (Auto) Seg Neutrophils % D-Dimer POC ABG pO2 ABG pO2 ABG HCO3 ABG Base Excess ABG Hemoglobin ABG Oxyhemoglobin ABG Sodium ABG Glucose Sodium Potassium Chloride Carbon Dioxide BUN Creatinine Glucose POC Glucose Calcium Magnesium Ferritin Ammonia Lactate Dehydrogenase Total Creatine Kinase C-Reactive Protein Total Protein Albumin TSH 12.780 H Arterial Blood Glucose Urine WBC (Auto) Salicylates < 0.3 L Acetaminophen 5.0 L Coronavirus (PCR) 04/29/21 04/30/21 04/30/21 03:47 04:13 04:13 WBC RBC Hgb Hct MCV MCH RDW 15.8 H Plt Count 105 L Lymph # (Auto) 1.1 L Seg Neutrophils % 71.2 H D-Dimer POC ABG pO2 ABG pO2 ABG HCO3 ABG Base Excess ABG Hemoglobin ABG Oxyhemoglobin ABG Sodium ABG Glucose Sodium 134 L Potassium Chloride Carbon Dioxide BUN 34 H Creatinine Glucose POC Glucose Calcium Magnesium Ferritin Ammonia Lactate Dehydrogenase Total Creatine Kinase C-Reactive Protein Total Protein Albumin TSH Arterial Blood Glucose Urine WBC (Auto) 176.0 H Salicylates Acetaminophen Coronavirus (PCR) 05/01/21 05/02/21 05/02/21 Unknown 08:50 08:50 WBC 4.2 L RBC 5.09 H Hgb Hct MCV MCH RDW 15.6 H Plt Count 100 L Lymph # (Auto) Seg Neutrophils % D-Dimer POC ABG pO2 ABG pO2 ABG HCO3 ABG Base Excess ABG Hemoglobin ABG Oxyhemoglobin ABG Sodium ABG Glucose Sodium 134 L Potassium Chloride Carbon Dioxide BUN 30 H Creatinine Glucose POC Glucose Calcium Magnesium Ferritin Ammonia Lactate Dehydrogenase Total Creatine Kinase C-Reactive Protein Total Protein Albumin TSH Arterial Blood Glucose Urine WBC (Auto) Salicylates Acetaminophen Coronavirus (PCR) Positive A 05/03/21 05/03/21 05/03/21 08:31 08:31 15:37 WBC RBC 5.15 H Hgb Hct MCV 83 L MCH 27 L RDW 15.4 H Plt Count 128 L Lymph # (Auto) Seg Neutrophils % D-Dimer 825.75 H POC ABG pO2 ABG pO2 ABG HCO3 ABG Base Excess ABG Hemoglobin ABG Oxyhemoglobin ABG Sodium ABG Glucose Sodium 136 L Potassium Chloride Carbon Dioxide 20 L BUN 43 H Creatinine 1.6 H Glucose 105 H POC Glucose Calcium Magnesium Ferritin Ammonia Lactate Dehydrogenase Total Creatine Kinase C-Reactive Protein Total Protein Albumin TSH Arterial Blood Glucose Urine WBC (Auto) Salicylates Acetaminophen Coronavirus (PCR) 05/03/21 05/03/21 05/04/21 15:37 15:37 10:00 WBC RBC Hgb Hct MCV MCH RDW Plt Count Lymph # (Auto) Seg Neutrophils % D-Dimer POC ABG pO2 ABG pO2 ABG HCO3 ABG Base Excess ABG Hemoglobin ABG Oxyhemoglobin ABG Sodium ABG Glucose Sodium Potassium Chloride Carbon Dioxide 18 L BUN 47 H Creatinine 1.4 H Glucose 104 H 105 H POC Glucose Calcium Magnesium Ferritin 797.9 H Ammonia Lactate Dehydrogenase 350 H Total Creatine Kinase C-Reactive Protein 3.40 H Total Protein Albumin 2.9 L TSH Arterial Blood Glucose Urine WBC (Auto) Salicylates Acetaminophen Coronavirus (PCR) 05/04/21 05/04/21 05/05/21 20:01 Unknown 04:22 WBC RBC Hgb Hct MCV MCH RDW Plt Count Lymph # (Auto) Seg Neutrophils % D-Dimer POC ABG pO2 69.5 L ABG pO2 ABG HCO3 ABG Base Excess ABG Hemoglobin ABG Oxyhemoglobin 92.8 L ABG Sodium 133.1 L ABG Glucose 129 H Sodium Potassium Chloride Carbon Dioxide 17 L 21 L BUN 50 H 51 H Creatinine 1.5 H 1.4 H Glucose 137 H 128 H POC Glucose Calcium Magnesium Ferritin Ammonia Lactate Dehydrogenase Total Creatine Kinase C-Reactive Protein 11.40 H Total Protein Albumin 2.8 L 3.4 L TSH Arterial Blood Glucose 129 H Urine WBC (Auto) Salicylates Acetaminophen Coronavirus (PCR) 05/05/21 05/05/21 05/05/21 04:22 04:22 04:22 WBC RBC 5.83 H Hgb 16.0 H Hct 49.0 H D MCV MCH 27 L RDW 16.1 H Plt Count 122 L Lymph # (Auto) Seg Neutrophils % D-Dimer 984.89 H POC ABG pO2 ABG pO2 ABG HCO3 ABG Base Excess ABG Hemoglobin ABG Oxyhemoglobin ABG Sodium ABG Glucose Sodium Potassium Chloride Carbon Dioxide BUN Creatinine Glucose POC Glucose Calcium Magnesium Ferritin 913.8 H Ammonia Lactate Dehydrogenase Total Creatine Kinase C-Reactive Protein Total Protein Albumin TSH Arterial Blood Glucose Urine WBC (Auto) Salicylates Acetaminophen Coronavirus (PCR) 05/05/21 05/05/21 05/05/21 07:47 12:38 21:35 WBC RBC Hgb Hct MCV MCH RDW Plt Count Lymph # (Auto) Seg Neutrophils % D-Dimer POC ABG pO2 ABG pO2 ABG HCO3 ABG Base Excess ABG Hemoglobin ABG Oxyhemoglobin ABG Sodium ABG Glucose Sodium Potassium Chloride Carbon Dioxide BUN Creatinine Glucose POC Glucose 114 H 111 H 116 H Calcium Magnesium Ferritin Ammonia Lactate Dehydrogenase Total Creatine Kinase C-Reactive Protein Total Protein Albumin TSH Arterial Blood Glucose Urine WBC (Auto) Salicylates Acetaminophen Coronavirus (PCR) 05/06/21 05/06/21 05/06/21 05:54 07:59 11:43 WBC RBC Hgb Hct MCV MCH RDW Plt Count Lymph # (Auto) Seg Neutrophils % D-Dimer POC ABG pO2 ABG pO2 ABG HCO3 ABG Base Excess ABG Hemoglobin ABG Oxyhemoglobin ABG Sodium ABG Glucose Sodium Potassium Chloride 110.3 H Carbon Dioxide 21 L BUN 62 H Creatinine 1.6 H Glucose 137 H POC Glucose 130 H 125 H Calcium 8.3 L Magnesium Ferritin Ammonia Lactate Dehydrogenase Total Creatine Kinase C-Reactive Protein Total Protein 5.9 L D Albumin 2.5 L TSH Arterial Blood Glucose Urine WBC (Auto) Salicylates Acetaminophen Coronavirus (PCR) 05/06/21 05/06/21 05/07/21 17:31 22:07 05:56 WBC RBC Hgb Hct MCV MCH RDW Plt Count Lymph # (Auto) Seg Neutrophils % D-Dimer POC ABG pO2 ABG pO2 ABG HCO3 ABG Base Excess ABG Hemoglobin ABG Oxyhemoglobin ABG Sodium ABG Glucose Sodium 146 H Potassium 5.6 H Chloride 114.4 H Carbon Dioxide BUN 82 H Creatinine 1.7 H Glucose 149 H POC Glucose 110 H 116 H Calcium Magnesium Ferritin Ammonia Lactate Dehydrogenase Total Creatine Kinase C-Reactive Protein Total Protein 6.0 L Albumin 2.5 L TSH Arterial Blood Glucose Urine WBC (Auto) Salicylates Acetaminophen Coronavirus (PCR) 05/07/21 05/07/21 05/07/21 07:31 08:54 10:37 WBC RBC Hgb Hct MCV MCH RDW Plt Count Lymph # (Auto) Seg Neutrophils % D-Dimer POC ABG pO2 ABG pO2 ABG HCO3 ABG Base Excess ABG Hemoglobin ABG Oxyhemoglobin ABG Sodium ABG Glucose Sodium Potassium 6.4 H* Chloride Carbon Dioxide BUN Creatinine Glucose POC Glucose 138 H Calcium Magnesium 2.40 H Ferritin Ammonia Lactate Dehydrogenase Total Creatine Kinase C-Reactive Protein Total Protein Albumin TSH Arterial Blood Glucose Urine WBC (Auto) Salicylates Acetaminophen Coronavirus (PCR) 05/07/21 05/07/21 05/07/21 11:36 21:08 22:00 WBC RBC Hgb Hct MCV MCH RDW Plt Count Lymph # (Auto) Seg Neutrophils % D-Dimer POC ABG pO2 ABG pO2 101.8 H ABG HCO3 19.2 L ABG Base Excess -4.4 L ABG Hemoglobin 12.8 L ABG Oxyhemoglobin ABG Sodium ABG Glucose Sodium Potassium Chloride Carbon Dioxide BUN Creatinine Glucose POC Glucose 134 H 129 H Calcium Magnesium Ferritin Ammonia Lactate Dehydrogenase Total Creatine Kinase C-Reactive Protein Total Protein Albumin TSH Arterial Blood Glucose Urine WBC (Auto) Salicylates Acetaminophen Coronavirus (PCR) 05/07/21 05/08/21 05/08/21 23:13 05:29 05:29 WBC 11.2 H RBC Hgb Hct MCV 83 L MCH 27 L RDW 15.8 H Plt Count Lymph # (Auto) Seg Neutrophils % D-Dimer 1309.67 H POC ABG pO2 ABG pO2 ABG HCO3 ABG Base Excess ABG Hemoglobin ABG Oxyhemoglobin ABG Sodium ABG Glucose Sodium 149 H Potassium Chloride 117.0 H Carbon Dioxide BUN 92 H Creatinine 2.0 H Glucose 175 H POC Glucose Calcium Magnesium Ferritin Ammonia Lactate Dehydrogenase Total Creatine Kinase C-Reactive Protein Total Protein Albumin TSH Arterial Blood Glucose Urine WBC (Auto) Salicylates Acetaminophen Coronavirus (PCR) 05/08/21 05/08/21 05/08/21 05:29 05:29 07:45 WBC RBC Hgb Hct MCV MCH RDW Plt Count Lymph # (Auto) Seg Neutrophils % D-Dimer POC ABG pO2 ABG pO2 ABG HCO3 ABG Base Excess ABG Hemoglobin ABG Oxyhemoglobin ABG Sodium ABG Glucose Sodium 149 H Potassium Chloride 117.1 H Carbon Dioxide 21 L BUN 91 H Creatinine 1.9 H Glucose 170 H POC Glucose 146 H Calcium Magnesium 2.60 H Ferritin 519.5 H Ammonia Lactate Dehydrogenase 459 H Total Creatine Kinase C-Reactive Protein 4.10 H Total Protein 5.9 L Albumin 2.8 L TSH Arterial Blood Glucose Urine WBC (Auto) Salicylates Acetaminophen Coronavirus (PCR) 05/08/21 05/08/21 05/08/21 11:38 16:59 21:29 WBC RBC Hgb Hct MCV MCH RDW Plt Count Lymph # (Auto) Seg Neutrophils % D-Dimer POC ABG pO2 ABG pO2 ABG HCO3 ABG Base Excess ABG Hemoglobin ABG Oxyhemoglobin ABG Sodium ABG Glucose Sodium Potassium Chloride Carbon Dioxide BUN Creatinine Glucose POC Glucose 142 H 141 H 177 H Calcium Magnesium Ferritin Ammonia Lactate Dehydrogenase Total Creatine Kinase C-Reactive Protein Total Protein Albumin TSH Arterial Blood Glucose Urine WBC (Auto) Salicylates Acetaminophen Coronavirus (PCR) 05/09/21 05/09/21 05/09/21 05:33 07:42 11:36 WBC RBC Hgb Hct MCV MCH RDW Plt Count Lymph # (Auto) Seg Neutrophils % D-Dimer POC ABG pO2 ABG pO2 ABG HCO3 ABG Base Excess ABG Hemoglobin ABG Oxyhemoglobin ABG Sodium ABG Glucose Sodium 146 H Potassium Chloride 115.1 H Carbon Dioxide BUN 83 H Creatinine 1.5 H Glucose 131 H POC Glucose 131 H 124 H Calcium Magnesium Ferritin Ammonia Lactate Dehydrogenase Total Creatine Kinase C-Reactive Protein Total Protein Albumin TSH Arterial Blood Glucose Urine WBC (Auto) Salicylates Acetaminophen Coronavirus (PCR) Allied health notes reviewed: RT
--- NOTE | 2021-05-09 14:08 | Gastroenterology Progress Note ---
Assessment and Plan - Patient Problems (1) Neurogenic dysphagia Current Visit: Yes Status: Acute Plan to address problem: - Multiple unsuccessful attempts at Dobhoff for feeds/fluids. - Patient is on TPN. - Physical Exam/clinical course appears terminal; would not repeat attempt at NG/Dobhoff tube. - IMS attempting to discuss goals of care with family again. - We will sign off; please call if needed. Subjective Date of service: 05/09/21 Principal diagnosis: Neurogenic Dysphagia Interval history: The patient had his Dobhoff removed (in bronchial tube). He continues to be unresponsive with agonal breathing. Objective - Constitutional Vitals: Temp Pulse Resp BP Pulse Ox 98.8 F 102 H 22 133/74 87 05/09/21 11:39 05/09/21 11:39 05/09/21 11:39 05/09/21 11:39 05/09/21 11:39 General appearance: cachectic - Respiratory Respiratory effort: labored Respiratory: negative: diminished, rhonchi - Cardiovascular Rhythm: irregularly irregular Heart Sounds: Present: S1 & S2 - Gastrointestinal General gastrointestinal: Present: soft, non-tender, non-distended - Integumentary Integumentary: Present: warm (Multiple necrotic skin cancers) - Neurologic Neurological: other (Unresponsive except to deep painful stimuli) - Labs CBC & Chem 7: 05/08/21 05:29 05/09/21 05:33 Labs: Laboratory Results - last 24 hr 05/08/21 05/08/21 05/09/21 16:59 21:29 05:33 Sodium 146 H Potassium 4.6 Chloride 115.1 H Carbon Dioxide 22 Anion Gap 14 BUN 83 H Creatinine 1.5 H Estimated GFR 44 BUN/Creatinine Ratio 55 Glucose 131 H POC Glucose 141 H 177 H Calcium 8.4 Phosphorus 2.90 Magnesium 2.20 05/09/21 05/09/21 07:42 11:36 Sodium Potassium Chloride Carbon Dioxide Anion Gap BUN Creatinine Estimated GFR BUN/Creatinine Ratio Glucose POC Glucose 131 H 124 H Calcium Phosphorus Magnesium
--- NOTE | 2021-05-09 15:07 | Progress Note ---
Assessment and Plan Assessment and plan: Patient is 86-year-old male who presented with altered mental status after being found by a neighbor. Subsequently found to have UTI has had some improvement in mental status with treatment. Found to be COVID positive. Now requiring supplemental oxygen, steroids started. #Acute metabolic encephalopathy -CT head negative on admission -Likely secondary to UTI vs COVID infection, unclear patient has underlying dementia -Not responsive to commands -Continuing to contact family to obtain patient's baseline compared to current clinical status; unable to reach next of kin today #Acute hypoxic respiratory failure # COVID pneumonia -Currently on high flow nasal cannula with continuous pulse ox for monitoring; wean oxygen as tolerated (oxygen saturation goal of >92%) -continue dexamethasone IV x10 days (ends on 05/11/2021); continue isolation prec autions -Pulmonology following, assistance appreciated -Patient prognosis guarded, family wishes to continue with current care; will make further attempts to continue discussing goals of care with family -Low threshold to intubate -Pending ABG in the morning #Hyperkalemia-stable -K 4.6 -EKG negative for any T wave changes; continue to manage medically -Nephrology consulted #UTI-resolved -Urine culture positive for E. coli sensitive to Levaquin -Completed 5-day course of Levaquin #DONTA-improving -Creatinine 1.7--->1.5 -likely prerenal in nature -given development of hyperkalemia, Nephrology consulted #Failure to thrive -discussed inability to take medications and eat by mouth to family, agreed with not proceeding with PEG tube at this time -multiple attempts made at NGT placement; however, NG tube placement was unsuccessful (even with the assistance from gastroenterology) -Started patient on PPN with goals of transitioning to TPN; however, consent is needed from next of kin to proceed forward with PICC placement -Nutrition on board #Skin cancer -Multiple lesions across body most prominent on the head -Will need outpatient follow-up with dermatology #DVT prophylaxis -continue Lovenox Disposition Plan: Pending goals of care discussion and possible PICC placement Total Time Spent with Patient (Minutes): 30 History Interval history: Patient unable to provide additional information given medical condition. Hospitalist Physical - Constitutional Vitals: Temp Pulse Resp BP Pulse Ox 98.8 F 102 H 22 133/74 87 05/09/21 11:39 05/09/21 11:39 05/09/21 11:39 05/09/21 11:39 05/09/21 11:39 General appearance: Present: no acute distress, well-nourished, cachectic, disheveled, other (multiple skin lesions ranging from necrotic plaques to nodules on the skin) - EENT Eyes: Present: discharge ENT: other (Could not assess due to patient being unable to respond) - Neck Neck: Present: supple - Respiratory Respiratory effort: labored Respiratory: bilateral: diminished, rhonchi, negative: rales, wheezing - Cardiovascular Rhythm: regular Heart Sounds: Present: S1 & S2 - Extremities Extremities: pulses intact, pulses symmetrical, normal temperature - Abdominal General gastrointestinal: soft, non-tender, non-distended, normal bowel sounds - Integumentary Integumentary: Present: warm, dry (Diffuse skin lesions coinciding with history of skin cancer) - Psychiatric Psychiatric: other (Unable to assess given altered mentation and current clinical status) - Neurologic Neurologic: other (Unable to assess given altered mentation and current clinical status) - Allied Health Allied health notes reviewed: nursing HEART Score - HEART Score History: Slightly suspicious EKG: Non-specific Age: > 65 Risk factors: 1-2 risk factors Troponin: Troponin T 0.014 ng/mL (0.00-0.029) 04/28/21 21:19 - Critical Actions Critical Actions: 0-3 pts:0.9-1.7%risk of adverse cardiac event.Candidate for discharge Results - Labs CBC & Chem 7: 05/08/21 05:29 05/09/21 05:33 Labs: Laboratory Last Values WBC 11.2 K/mm3 (4.5-11.0) H 05/08/21 05:29 RBC 4.90 M/mm3 (3.65-5.03) 05/08/21 05:29 Hgb 13.2 gm/dl (11.8-15.2) 05/08/21 05:29 Hct 40.6 % (35.5-45.6) 05/08/21 05:29 MCV 83 fl (84-94) L 05/08/21 05:29 MCH 27 pg (28-32) L 05/08/21 05:29 MCHC 32 % (32-34) 05/08/21 05:29 RDW 15.8 % (13.2-15.2) H 05/08/21 05:29 Plt Count 180 K/mm3 (140-440) 05/08/21 05:29 Lymph % (Auto) 21.9 % (13.4-35.0) 04/30/21 04:13 Barnes % (Auto) 6.5 % (0.0-7.3) 04/30/21 04:13 Eos % (Auto) 0.1 % (0.0-4.3) 04/30/21 04:13 Baso % (Auto) 0.3 % (0.0-1.8) 04/30/21 04:13 Lymph # (Auto) 1.1 K/mm3 (1.2-5.4) L 04/30/21 04:13 Barnes # (Auto) 0.3 K/mm3 (0.0-0.8) 04/30/21 04:13 Eos # (Auto) 0.0 K/mm3 (0.0-0.4) 04/30/21 04:13 Baso # (Auto) 0.0 K/mm3 (0.0-0.1) 04/30/21 04:13 Seg Neutrophils % 71.2 % (40.0-70.0) H 04/30/21 04:13 Seg Neutrophils # 3.7 K/mm3 (1.8-7.7) 04/30/21 04:13 PT 13.1 Sec. (12.2-14.9) 04/28/21 21:19 INR 0.93 (0.87-1.13) 04/28/21 21:19 APTT 32.0 Sec. (24.2-36.6) 04/28/21 21:19 D-Dimer 1309.67 ng/mlDDU (0-234) H 05/08/21 05:29 ABG pH 7.409 pH Units (7.350-7.450) 05/07/21 22:00 POC ABG pCO2 32.3 mmHg (32.0-48.0) 05/04/21 Unknown ABG pCO2 31.1 mm Hg 05/07/21 22:00 POC ABG pO2 69.5 mmHg (83-108) L 05/04/21 Unknown ABG pO2 101.8 mm Hg (80.0-90.0) H 05/07/21 22:00 POC ABG HCO3 19.4 05/04/21 Unknown ABG HCO3 19.2 mmol/L (20.0-26.0) L 05/07/21 22:00 ABG O2 Saturation 97.7 % (95.0-99.0) 05/07/21 22:00 ABG O2 Content 17.5 (0.0-44) 05/07/21 22:00 POC ABG Base Excess -4.4 05/04/21 Unknown ABG Base Excess -4.4 mmol/L (-2.0-3.0) L 05/07/21 22:00 ABG Hemoglobin 12.8 gm/dl (14.0-18.0) L 05/07/21 22:00 ABG Oxyhemoglobin 92.8 (94-98) L 05/04/21 Unknown ABG Carboxyhemoglobin 0.8 % (0.0-5.0) 05/07/21 22:00 ABG Methemoglobin 0.6 % (0.0-1.5) 05/07/21 22:00 ABG Sodium 133.1 mmol/L (136.0-145.0) L 05/04/21 Unknown ABG Potassium 4.2 mmol/L (3.40-4.50) 05/04/21 Unknown ABG Chloride 106.0 mmol/L (98-107) 05/04/21 Unknown ABG Glucose 129 mg/dL (65-95) H 05/04/21 Unknown Oxyhemoglobin 96.4 % (95.0-99.0) 05/07/21 22:00 Carboxyhemoglobin 0.8 (0.5-1.5) 05/04/21 Unknown FiO2 100 % 05/07/21 22:00 FiO2 % 100.0 05/04/21 Unknown Sodium 146 mmol/L (137-145) H 05/09/21 05:33 Potassium 4.6 mmol/L (3.6-5.0) 05/09/21 05:33 Chloride 115.1 mmol/L (98-107) H 05/09/21 05:33 Carbon Dioxide 22 mmol/L (22-30) 05/09/21 05:33 Anion Gap 14 mmol/L 05/09/21 05:33 BUN 83 mg/dL (9-20) H 05/09/21 05:33 Creatinine 1.5 mg/dL (0.8-1.3) H 05/09/21 05:33 Estimated GFR 44 ml/min 05/09/21 05:33 BUN/Creatinine Ratio 55 % 05/09/21 05:33 Glucose 131 mg/dL (75-100) H 05/09/21 05:33 POC Glucose 124 mg/dL (70-105) H 05/09/21 11:36 Lactic Acid 1.90 mmol/L (0.7-2.0) 05/04/21 15:48 Calcium 8.4 mg/dL (8.4-10.2) 05/09/21 05:33 Phosphorus 2.90 mg/dL (2.5-4.5) 05/09/21 05:33 Magnesium 2.20 mg/dL (1.7-2.3) 05/09/21 05:33 Ferritin 519.5 ng/mL (30.0-300.0) H 05/08/21 05:29 Total Bilirubin 0.30 mg/dL (0.1-1.2) 05/08/21 05:29 AST 14 units/L (5-40) 05/08/21 05:29 ALT 11 units/L (7-56) 05/08/21 05:29 Alkaline Phosphatase 119 units/L (35-129) 05/08/21 05:29 Ammonia 21.0 umol/L (25-60) L 04/28/21 21:19 Lactate Dehydrogenase 459 units/L (91-180) H 05/08/21 05:29 Total Creatine Kinase 215 units/L (55-170) H 04/28/21 21:19 Troponin T 0.014 ng/mL (0.00-0.029) 04/28/21 21:19 C-Reactive Protein 4.10 mg/dL (0.00-1.30) H 05/08/21 05:29 Total Protein 5.9 g/dL (6.3-8.2) L 05/08/21 05:29 Albumin 2.8 g/dL (3.9-5) L 05/08/21 05:29 Albumin/Globulin Ratio 0.9 % 05/08/21 05:29 Triglycerides 121 mg/dL (2-149) 05/08/21 05:29 Procalcitonin 0.17 ng/mL (<0.15) 05/03/21 15:37 TSH 12.780 mlU/mL (0.270-4.200) H 04/28/21 21:19 Arterial Blood Glucose 129 mg/dL (65-95) H 05/04/21 Unknown Urine Color Elisa (Yellow) 04/29/21 03:47 Urine Turbidity Cloudy (Clear) 04/29/21 03:47 Urine pH 6.0 (5.0-7.0) 04/29/21 03:47 Ur Specific [place] 1.015 (1.003-1.030) 04/29/21 03:47 Urine Protein >500 mg/dL (Negative) 04/29/21 03:47 Urine Glucose (UA) Neg mg/dL (Negative) 04/29/21 03:47 Urine Ketones Neg mg/dL (Negative) 04/29/21 03:47 Urine Blood Lg (Negative) 04/29/21 03:47 Urine Nitrite Neg (Negative) 04/29/21 03:47 Urine Bilirubin Neg (Negative) 04/29/21 03:47 Urine Urobilinogen < 2.0 mg/dL (<2.0) 04/29/21 03:47 Ur Leukocyte Esterase Lg (Negative) 04/29/21 03:47 Urine WBC (Auto) 176.0 /HPF (0.0-6.0) H 04/29/21 03:47 Urine RBC (Auto) > 182.0 /HPF (0.0-6.0) 04/29/21 03:47 U Epithel Cells (Auto) < 1.0 /HPF (0-13.0) 04/29/21 03:47 Urine Bacteria (Auto) 2+ /HPF (Negative) 04/29/21 03:47 Urine WBC Clumps 2+ /HPF 04/29/21 03:47 Urine Mucus Few /HPF 04/29/21 03:47 Salicylates < 0.3 mg/dL (2.8-20.0) L 04/28/21 21:19 Acetaminophen 5.0 ug/mL (10.0-30.0) L 04/28/21 21:19 Plasma/Serum Alcohol < 0.01 % (0-0.07) 04/28/21 21:19 Coronavirus (PCR) Positive (Negative) A 05/01/21 Unknown Blood Type A POSITIVE 04/28/21 21:19 Antibody Screen Negative 04/28/21 21:19 Mac/IV: Voiding Method Indwelling Catheter Active Medications - Current Medications Current Medications: Generic Name Dose Route Start Last Admin Trade Name Freq PRN Reason Stop Dose Admin Acetaminophen 650 mg 04/29/21 05:28 05/04/21 06:16 Acetaminophen 325 Mg Tab PO 650 mg Q4H PRN Administration Pain MILD(1-3)/Fever >100.5/COLLIER Albuterol 2.5 mg 04/29/21 05:28 Albuterol 2.5 Mg/3 Ml Nebu IH Q4HRT PRN Shortness Of Breath Dexamethasone 6 mg 05/04/21 10:00 05/09/21 11:42 Dexamethasone 4 Mg/Ml Vial IV 05/13/21 10:01 6 mg QDAY PURNIMA Administration Enoxaparin Sodium 40 mg 05/09/21 22:00 Enoxaparin 40 Mg/0.4 Ml Inj SUB-Q QHS PURNIMA Famotidine 10 mg 05/05/21 22:00 05/09/21 11:42 Famotidine 20 Mg/2 Ml Inj IV 10 mg BID PURNIMA Administration Hydromorphone HCl 0.5 mg 04/29/21 05:28 05/05/21 05:18 Hydromorphone 1 Mg/1 Ml Inj IV 0.5 mg Q3H PRN Administration Pain , Severe (7-10) Sodium Bicarbonate 100 meq/ 1,100 mls @ 150 mls/hr 05/08/21 10:00 05/08/21 13:42 Sterile Water IV 05/12/21 17:19 150 mls/hr DIRECT PURNIMA Administration Amino Acids 1,008 mls @ 42 mls/hr 05/08/21 20:00 05/08/21 23:58 Clinimix 4.25%-10% Solution IV 05/09/21 19:59 42 mls/hr ONCE@1999 PURNIMA Administration Amino Acids 1,008 mls @ 42 mls/hr 05/09/21 20:00 Clinimix 4.25%-10% Solution IV 05/10/21 19:59 ONCE@1999 PURNIMA Labetalol HCl 10 mg 05/01/21 11:00 05/07/21 02:43 Labetalol 20 Mg/4 Ml Inj IV 10 mg Q4HR PRN Administration sbp >160, hold for HR <70 Levothyroxine Sodium 25 mcg 05/05/21 06:00 05/09/21 06:39 Levothyroxine 25 Mcg Tab PO Not Given DAILY@0600 PURNIMA Ondansetron HCl 4 mg 04/29/21 05:28 Ondansetron 4 Mg/2 Ml Inj IV Q8H PRN Nausea And Vomiting Sodium Chloride 10 ml 04/29/21 10:00 05/09/21 11:43 Sodium Chloride 0.9% 10 Ml Flush Syringe IV 10 ml BID PURNIMA Administration Sodium Chloride 10 ml 04/29/21 05:28 Sodium Chloride 0.9% 10 Ml Flush Syringe IV PRN PRN LINE FLUSH Nutrition/Malnutrition Assess - Dietary Evaluation Nutrition/Malnutrition Findings: Nutrition Notes Start: 05/07/21 10:31 Freq: Status: Active Protocol: Document 05/09/21 12:58 ERICA (Rec: 05/09/21 13:03 DCFIDENCIO [id number]) Nutrition Notes Initial or Follow up Reassessment Current Diagnosis Acute Kidney Injury, Respiratory Failure Other Pertinent Diagnosis UTI, AMS, dehydration, COVID- 19, skin cancer Current Diet PPN at 42ml/hr Labs/Tests Na 146 Cl 115.1 BUN 83 Cr 1.5 Pertinent Medications Na bicarb at 150ml/hr Height 5 ft 6 in Weight 67.7 kg [place] Body Weight (kg) 64.54 BMI 24.0 Subjective/Other Information Day 3 PPN. PICC line ordered yesterday, but not placed yet. Will order another bag of Clinimix 4.25%/10%. Percent of energy/protein needs met: 64% energy 62% pro Burn Absent Trauma Absent #1 Nutrition Diagnosis Inadequate oral intake Diagnosis Progress(for reassessment Continues documentation) Is patient on ventilator? No Is Patient Ambulatory and/or Out of Bed No REE-([facility]-confined to bed) 1573.800 Calculation Used for Recommendations [facility] Additional Notes Protein: (1-1.2g/kg) 68-81g Fluid: 1 ml/kcal Nutrition Intervention Nutrition Support: Continue Clinimix 4.25%/10% at 42ml/hr. Osmolality: 921 Kcal 511 Protein (gm) 43 Carbohydrates (gm) 100 Fat (gm) 0 Fluid (mL) 1,008 Fiber (gm) 0 Goal #1 PPN to meet needs as best possible Follow-Up By: 05/10/21 Additional Comments Labs in am: BMP, Mg, Phos F/U: PICC placement
--- NOTE | 2021-05-09 15:58 | Progress Note ---
Assessment and Plan Cultures: Blood culture 04/28/2021 no growth Urine culture 04/28/2021 E. coli SARS CoV2 PCR positive Assessment: 86-year-old male with history of urinary retention, skin cancer, initially admitted on 04/29/2021 secondary to altered mental status for 48 hours, in the ED was found to have a UTI. Urine culture grew E. coli. Unfortunately patient developed worsening encephalopathy, shortness of breath and hypoxia: #Presumed Severe COVID pneumonia: CXR no consolidations plan to. Infllammatory markers elevated. D-dimer 984. Ferritin 913. CRP 11.4-->4. Procalcitonin 0.1. #Acute hypoxemic respiratory failure: Remains on HFNC 40L/100% #DONTA: from COVID, better. #UTI: Urine culture grew E. coli, treated. #Thrombocytopenia: Secondary to COVID-19. Resolved. Recommendations: -Continue steroids IV/PO daily for 10 days -Completed remdesivir -Completed Tocilizumab on 05/05/2021 -Completed Levaquin for total 5 days -Monitor inflammatory markers - ferritin, Ddimer, CRP, LDH -Continue anticoagulation per System Protocol -Prone positioning as possible -On TPN Guarded prognosis Will follow Melissa Dodd MD [facility], [place], [facility] [phone] O [phone] Subjective Date of service: 05/09/21 Principal diagnosis: Neurogenic Dysphagia Interval history: Remains on HFNC 40L/100%, sats down to 88%. No fever. Objective - Exam Narrative Exam: Physical exam deferred to minimize COVID-19 transmission during pandemic. - Constitutional Vitals: Vital Signs Temp Pulse Resp BP Pulse Ox 98.8 F 102 H 22 133/74 87 05/09/21 11:39 05/09/21 11:39 05/09/21 11:39 05/09/21 11:39 05/09/21 11:39 Temperature -Last 24 Hours Temperature 98.8 F Temperature 98.9 F Temperature 97.6 F Temperature 98.2 F - Labs CBC & Chem 7: 05/08/21 05:29 05/09/21 05:33 Labs: Abnormal lab results 05/08/21 05/08/21 05/09/21 Range/Units 16:59 21:29 05:33 Sodium 146 H (137-145) mmol/L Chloride 115.1 H (98-107) mmol/L BUN 83 H (9-20) mg/dL Creatinine 1.5 H (0.8-1.3) mg/dL Glucose 131 H (75-100) mg/dL POC Glucose 141 H 177 H (70-105) mg/dL 05/09/21 05/09/21 05/09/21 Range/Units 07:42 11:36 15:34 Sodium (137-145) mmol/L Chloride (98-107) mmol/L BUN (9-20) mg/dL Creatinine (0.8-1.3) mg/dL Glucose (75-100) mg/dL POC Glucose 131 H 124 H 144 H (70-105) mg/dL
[2021-05-09 16:32] VITALS: BP 135/83
[2021-05-09] MEDS ORDERED: DEXTROSE 10% IV SCH (20:00)
[2021-05-09] MEDS ORDERED: AMINO ACIDS IV SCH (20:00)
[2021-05-09] MEDS: SODIUM BICARBONATE 100 MEQ in WATER FOR INJECTION (PF) 1,000 ML IV SCH (21:19)
[2021-05-09] MEDS ORDERED: ENOXAPARIN 40 MG/0.4 ML INJ SUB-Q SCH (22:00)
[2021-05-10] MEDS: SODIUM BICARBONATE 100 MEQ in WATER FOR INJECTION (PF) 1,000 ML IV SCH (05:58)
[2021-05-10] MEDS: LEVOTHYROXINE 25 MCG TAB PO SCH (05:59)
[2021-05-10 06:27] LABS: Mean Corpuscular HGB Conc 31 % (32-34); Mean Corpuscular Volume 90 fl (84-94); Platelet Count 131 K/mm3 (140-440); Red Blood Count 4.34 M/mm3 (3.65-5.03); Red Cell Distribution Width 17.1 % (13.2-15.2)
[2021-05-10 06:30] LABS: INR 1.37 (0.87-1.13)
[2021-05-10 06:36] LABS: Hematocrit 39.1 % (35.5-45.6)
--- NOTE | 2021-05-10 06:55 | Event Note ---
Date: 05/10/21 ER attending responding to CODE BLUE Chest compressions in progress. Patient pulseless. Initial rhythm asystole on the monitor. Epinephrine and bicarb administered. Patient prepped for intubation. Hospitalist at bedside to continue to run code. - Intubation Time Out Performed: Yes Sedative: none Laryngoscope: fiberoptic video scope Size: 4 ET Tube Size: 7.5 Tube Secured Depth (cm): 24 Tube Secured Location: lips Tube Placement Confirmation: visualized tube passing t, equal breath sounds bilat, no breath sounds over epi, confirmation by capnometr Patient Tolerated Procedure: well Intubation Complications: none
[2021-05-10 07:04] LABS: BUN/Creatinine Ratio TNR; Blood Urea Nitrogen TNR mg/dL (9-20)
[2021-05-10 07:05] LABS: Calcium TNR mg/dL (8.4-10.2); Hemolysis Index TNR
--- NOTE | 2021-05-10 07:16 | Death Note ---
Note Date of : 05/10/21 Time of : 06:58 Time Pronounced: 06:58 (Date pronounced by Dr. Erickson) - Preliminary Cause of (problem) (1) Acute metabolic encephalopathy Preliminary cause of (2) Acute respiratory failure with hypoxia Preliminary cause of CODE BLUE called. Patient was asystole. CPR given as per ACLS protocol. 4 epinephrine given IV, 2 bicarb amp given IV, 1 calcium chloride given IV but patient failed to regain ROSC. Patient at 06:58 AM code called by Dr Erickson. due to cardiopulmonary arrest and acute respiratory failure. Overall prognosis is poor. Family called x2 but no one picked up the phone and we left voice message. Code conducted by Dr Erickson and Elaine MILLER. (3) Altered mental status Preliminary cause of
[2021-05-10 09:26] LABS: Total Cells Counted 100
[2021-05-10 09:27] LABS: Band Neutrophils # (Manual) 0.5 K/mm3
[2021-05-10 09:29] LABS: Ovalocytes 1+; Platelet Estimate Consistent w Auto; Poikilocytosis 1+
--- NOTE | 2021-05-10 12:50 | Death Summary ---
Summary - Providers Date of service: 05/10/21 Consults: 04/29/21 13:37 Consult to Case Management [CONS] Routine Services Needed at Discharge: Other Notified:: caseworker protective services Comment:: need to locate family. discharge planning. Occupational Therapy Evaluate and Treat [CONS] Routine Comment: Reason For Exam: debility Physical Therapy Evaluation and Treat [CONS] Routine Comment: Reason For Exam: debility 04/30/21 06:58 Consult to Wound/ET Nurse [CONS] Routine Reason For Exam: wound eval 04/30/21 17:17 Speech Therapy Evaluation and Treat [CONS] Routine Reason For Exam: possible trouble swallowing 05/01/21 10:23 Consult to Case Management [CONS] Routine Services Needed at Discharge: Physical Therapy Notified:: cm notified Comment:: subacute rehab 05/03/21 10:00 Speech Therapy Evaluation and Treat [CONS] Routine Reason For Exam: aphasia 05/04/21 13:13 Consult to Physician [CONS] Urgent Comment: Consulting Provider: MADIE KILPATRICK Physician Instructions: Reason For Exam: Acute hypoxic respiratory failure 05/04/21 15:01 Consult to Physician [CONS] Routine Comment: Consulting Provider: BRAXTON RICH Physician Instructions: Reason For Exam: COVID-19 infection; CAP 05/06/21 13:16 Consult to Dietitian/Nutrition [CONS] Routine Physician Instructions: Reason For Exam: Reason for Consult: Write/Manage TPN/PPN 05/07/21 12:24 Consult to Physician [CONS] Urgent Comment: Consulting Provider: SURESH URBAN Physician Instructions: Reason For Exam: DONTA/Hyperkalemia 05/08/21 11:24 PICC Line Insertion [Consult to PICC Line RN] [CONS] Routine Reason For Exam: TPN Type Line:: PICC 05/08/21 11:49 Consult to Physician [CONS] Routine Comment: Consulting Provider: UVALDO JACOB Physician Instructions: Reason For Exam: NG tube placement Attending: ISAEL RANGEL MD - summary Date of admission: 05/01/21 10:23 Date of : 05/10/21 Reason for admission: Altered mental status; UTI; COVID-19 infection Significant findings: Reviewed. Pertinent studies: None Disposition: The patient is a 86-year-old male who presented with altered mental status after being found by a neighbor. He was subsequently found to have a UTI with some improvement in mental status; however, he was found to be positive for COVID-19 pneumonia requiring supplemental oxygen and further treatment per COVID-19 protocol. It was presumed that the patient had acute metabolic encephalopathy that was likely secondary to Covid infection, because it continued even after completion of a 5-day course of Levaquin for UTI treatment. The patient completed a 10-day course of IV dexamethasone 40 mg daily. The patient's hospital course was also complicated by an DONTA. Due to overall failure to thrive multiple attempts were made to reach family by phone; however, family could not be reached. On 05/10/2021, the patient was found to be asystole, and a CODE BLUE was initiated. CPR continued and the patient was intubated. Despite efforts at resuscitation, the patient failed to regain consciousness and time of was called. Numerous attempts were made to reach the family, and eventually the grandson returned the phone call. He was notified of the patient's and stated he would discuss further decisions with his family. - Final diagnosis (1) Acute metabolic encephalopathy Note: Final diagnosis: (2) Acute respiratory failure with hypoxia Note: Final diagnosis: (3) Altered mental status Qualifiers: Altered mental status type: transient alteration of awareness Qualified Code(s): R40.4 - Transient alteration of awareness Note: Final diagnosis: (4) Dehydration Note: Final diagnosis: (5) Neurogenic dysphagia Note: Final diagnosis: (6) Acute kidney injury Note: Final diagnosis:
[2021-05-10] MEDS ORDERED: EPINEPHrine 1 MG/10 ML SYRINGE ONE (16:05)
[2021-05-10] MEDS ORDERED: SODIUM CHLORIDE 0.9% 100 ML IVPB ONE (16:05)
[2021-05-10] MEDS ORDERED: CALCIUM CHLORIDE 1,000 MG/10 ML SYRINGE IV ONE (16:05)
[2021-05-10] MEDS ORDERED: SODIUM BICARB 8.4% 50 MEQ/50 ML SYRINGE IV ONE (16:05)
[2021-05-12] MEDS ORDERED: SODIUM CHLORIDE 0.9% 1000 ML IV SOLN ONE (15:32)
== END 2021-05-10 12:45 | DRG 177 ==
LOC: ED 19:04 → 4A 04-29 05:28 → OBSVTOIN 05-01 10:23 → 3A 05-03 14:07
PROVIDERS: ADMIT Hospitalist; ATTEND Student in an Organized Health Care Education/Training Program
PROC: XW033E5 Introduction of Remdesivir Anti-infective into Peripheral Vein, Percutaneous Approach, New Technology Group 5 (ICD-10-PCS; principal; 2021-05-04)
PROC: 5A09357 Assistance with Respiratory Ventilation, Less than 24 Consecutive Hours, Continuous Positive Airway Pressure (ICD-10-PCS; 2021-05-04)
PROC: 5A0955A Assistance with Respiratory Ventilation, Greater than 96 Consecutive Hours, High Flow/Velocity Cannula (ICD-10-PCS; 2021-05-04)
PROC: 4A033R1 Measurement of Arterial Saturation, Peripheral, Percutaneous Approach (ICD-10-PCS; 2021-05-04)
PROC: XW033H5 Introduction of Tocilizumab into Peripheral Vein, Percutaneous Approach, New Technology Group 5 (ICD-10-PCS; 2021-05-05)
PROC: 0BH17EZ Insertion of Endotracheal Airway into Trachea, Via Natural or Artificial Opening (ICD-10-PCS; 2021-05-10)
PROC: 5A12012 Performance of Cardiac Output, Single, Manual (ICD-10-PCS; 2021-05-10)
DX: U07.1 COVID-19 (principal); G93.41 Metabolic encephalopathy; N17.0 Acute kidney failure with tubular necrosis; J96.01 Acute respiratory failure with hypoxia; J12.82 Pneumonia due to coronavirus disease 2019; N39.0 Urinary tract infection, site not specified; E87.0 Hyperosmolality and hypernatremia; Z88.0 Allergy status to penicillin; Z85.828 Personal history of other malignant neoplasm of skin; E86.0 Dehydration; B96.20 Unspecified Escherichia coli [E. coli] as the cause of diseases classified elsewhere; D69.6 Thrombocytopenia, unspecified; R62.7 Adult failure to thrive; E87.5 Hyperkalemia; R13.19 Other dysphagia
CPT/HCPCS: 36415; 36600; 70450; 71045; 74018; 80048; 80053; 80320; 81001; 82140; 82550; 82728; 82803; 82805; 82947; 82962; 83615; 83735; 84100; 84132; 84145; 84443; 84478; 84484; 85007; 85025; 85027; 85379; 85610; 85730; 86140; 86850; 86900; 86901; 87040; 87076; 87086; 87186; 93005; 93970; 94660; 94760; G0378; G0480; J0171; J0610; J1100; J1170; J1644; J1650; J1956; J3262; J7030; J7050; J7120; U0003